=== PATIENT | female | born 1955 | race Caucasian/White ===

== ENCOUNTER → 2017-07-27 | Outpatient (CLI) | payer OTHER ==
[~2017-07-27] MED LIST: ALBUMIN HUMAN 25% 100 ML IV; LIDOCAINE WITH 8.4% SOD BICARB 3 ML DISP.SYRIN. IJ
[2017-07-27 08:52] LABS: ADD MAN DIFF? NO
[2017-07-27 08:57] LABS: BASO # 0.1 x10^3/uL (0.0-0.2); BASO % 1 % (0-3); EOS # 0.2 x10^3/uL (0.0-0.7); EOS % 3 % (0-3); HEMATOCRIT 37.8 % (36.0-47.0); HEMOGLOBIN 12.4 g/dL (12.0-15.5); LYMPH # 0.9 x10^3/uL (1.0-4.8); LYMPH % 15 % (24-48); MEAN CORPUSCULAR HEMOGLOBIN 28 pg (25-35); MEAN CORPUSCULAR HGB CONC 33 g/dL (31-37); MEAN CORPUSCULAR VOLUME 86 fL (79-100); MONO # 0.6 x10^3/uL (0.0-1.1); MONO % 10 % (0-9); NEUT # 4.4 x10^3uL (1.8-7.7); NEUT % 72 % (31-73); PLATELET COUNT 292 x10^3/uL (140-400); RED BLOOD COUNT 4.43 x10^6/uL (3.50-5.40); RED CELL DISTRIBUTION WIDTH 14.3 % (11.5-14.5); WHITE BLOOD COUNT 6.2 x10^3/uL (4.0-11.0)
[2017-07-27] MEDS: ALBUMIN HUMAN 25% 100 ML IV ×2 (10:42→10:43)
[2017-07-27] MEDS: LIDOCAINE WITH 8.4% SOD BICARB 3 ML DISP.SYRIN. IJ (10:43)
[2017-07-27 13:14] LABS: BF CLARITY CLEAR; BF COLOR YELLOW; BF SOURCE ASCITES
[2017-07-27 13:15] LABS: BF MON % 39 %; BF OTHER % 51 %; BF PMN % 10 %; BF RBC COUNT 1499 /cmm; BF WBC COUNT 326 /cmm
[2017-07-28 16:21] LABS: BODY FLUID ALBUMIN 2.6 g/dL (.)
== END | disposition home or self-care (01) ==
LOC: INTRAD 08:22
DX: R18.8 Other ascites (principal); I10 Essential (primary) hypertension; Z98.890 Other specified postprocedural states; Z88.0 Allergy status to penicillin
CPT/HCPCS: 36415; 49083; 82042; 85025; 85610; 87205; 89050; A4215; C1729; C1894; P9046

== ENCOUNTER 2017-08-25 10:04 | Outpatient (CLI) | payer BC, OTHER ==
[2017-08-25 10:44] LABS: ADD MAN DIFF? NO
[2017-08-25 10:47] LABS: BASO % 1 % (0-3); EOS # 0.1 x10^3/uL (0.0-0.7); EOS % 1 % (0-3); HEMATOCRIT 34.1 % (36.0-47.0); HEMOGLOBIN 11.5 g/dL (12.0-15.5); LYMPH # 0.8 x10^3/uL (1.0-4.8); LYMPH % 12 % (24-48); MEAN CORPUSCULAR HEMOGLOBIN 28 pg (25-35); MEAN CORPUSCULAR HGB CONC 34 g/dL (31-37); MEAN CORPUSCULAR VOLUME 84 fL (79-100); MONO # 0.5 x10^3/uL (0.0-1.1); MONO % 8 % (0-9); NEUT # 5.1 x10^3uL (1.8-7.7); NEUT % 78 % (31-73); PLATELET COUNT 354 x10^3/uL (140-400); RED BLOOD COUNT 4.05 x10^6/uL (3.50-5.40); RED CELL DISTRIBUTION WIDTH 14.2 % (11.5-14.5); WHITE BLOOD COUNT 6.6 x10^3/uL (4.0-11.0)
[2017-08-25 10:55] LABS: PARTIAL THROMBOPLASTIN TIME 26 SEC (24-38)
[2017-08-25] MEDS ORDERED: LIDOCAINE WITH 8.4% SOD BICARB 3 ML DISP.SYRIN. ×2 (11:38)
[2017-08-25] MEDS: LIDOCAINE WITH 8.4% SOD BICARB 3 ML DISP.SYRIN. IJ ×2 (12:00)
[2017-08-25] MEDS: ALBUMIN HUMAN 25% 100 ML IV ×4 (12:30→12:45)
[2017-08-25] MEDS ORDERED: ALBUMIN HUMAN 25% 100 ML IV ×2 (12:38)
== END 2017-08-25 14:12 | disposition home or self-care (01) ==
LOC: INTRAD 10:04
DX: R18.8 Other ascites (principal); I10 Essential (primary) hypertension; Z79.01 Long term (current) use of anticoagulants; Z98.890 Other specified postprocedural states; Z88.0 Allergy status to penicillin
CPT/HCPCS: 36415; 49083; 85025; 85610; 85730; P9046

== ENCOUNTER 2017-12-09 08:32 | Outpatient (CLI) | payer OTHER, BC ==
[2017-12-09 09:09] LABS: ADD MAN DIFF? NO
[2017-12-09 09:11] LABS: BASO % 0 % (0-3); EOS # 0.2 x10^3/uL (0.0-0.7); EOS % 3 % (0-3); HEMATOCRIT 33.6 % (36.0-47.0); HEMOGLOBIN 11.2 g/dL (12.0-15.5); LYMPH # 0.8 x10^3/uL (1.0-4.8); LYMPH % 15 % (24-48); MEAN CORPUSCULAR HEMOGLOBIN 30 pg (25-35); MEAN CORPUSCULAR HGB CONC 33 g/dL (31-37); MEAN CORPUSCULAR VOLUME 89 fL (79-100); MONO # 0.5 x10^3/uL (0.0-1.1); MONO % 9 % (0-9); NEUT # 4.1 x10^3uL (1.8-7.7); NEUT % 73 % (31-73); PLATELET COUNT 306 x10^3/uL (140-400); RED BLOOD COUNT 3.78 x10^6/uL (3.50-5.40); RED CELL DISTRIBUTION WIDTH 14.4 % (11.5-14.5); WHITE BLOOD COUNT 5.6 x10^3/uL (4.0-11.0)
[2017-12-09 09:19] LABS: INR 1.1 (0.8-1.1); PROTHROMBIN TIME PATIENT 13.7 SEC (11.7-14.0)
[2017-12-09] MEDS ORDERED: LIDOCAINE WITH 8.4% SOD BICARB 3 ML DISP.SYRIN. (10:55)
[2017-12-09] MEDS ORDERED: ALBUMIN HUMAN 25% 100 ML IV ×2 (12:20)
[2017-12-09] MEDS: LIDOCAINE WITH 8.4% SOD BICARB 3 ML DISP.SYRIN. INJ (12:40)
[2017-12-09] MEDS: ALBUMIN HUMAN 25% 100 ML IV ×2 (12:41→13:41)
== END 2017-12-09 14:50 | disposition home or self-care (01) ==
LOC: INTRAD 08:32
DX: R18.8 Other ascites (principal); Z88.0 Allergy status to penicillin; I10 Essential (primary) hypertension; Z98.890 Other specified postprocedural states
CPT/HCPCS: 36415; 49083; 85025; 85610; P9046

== ENCOUNTER 2018-01-05 08:38 | Outpatient (CLI) | payer OTHER ==
[2018-01-05] MEDS ORDERED: LIDOCAINE WITH 8.4% SOD BICARB 3 ML DISP.SYRIN. (09:13)
[2018-01-05] MEDS ORDERED: ALBUMIN HUMAN 25% 100 ML IV ×2 (09:28→10:01)
[2018-01-05] MEDS: ALBUMIN HUMAN 25% 100 ML IV ×2 (09:35→10:06)
[2018-01-05] MEDS: LIDOCAINE WITH 8.4% SOD BICARB 3 ML DISP.SYRIN. INJ (09:55)
== END 2018-01-05 11:10 | disposition home or self-care (01) ==
LOC: INTRAD 08:38
DX: R18.8 Other ascites (principal); I10 Essential (primary) hypertension; Z98.890 Other specified postprocedural states; Z79.899 Other long term (current) drug therapy
CPT/HCPCS: 49083; P9046

== ENCOUNTER 2018-02-03 08:40 | Outpatient (CLI) | payer OTHER ==
[2018-02-03 09:31] LABS: ADD MAN DIFF? NO
[2018-02-03 09:34] LABS: BASO % 1 % (0-3); EOS # 0.1 x10^3/uL (0.0-0.7); EOS % 2 % (0-3); HEMATOCRIT 35.3 % (36.0-47.0); HEMOGLOBIN 11.8 g/dL (12.0-15.5); LYMPH # 0.8 x10^3/uL (1.0-4.8); LYMPH % 15 % (24-48); MEAN CORPUSCULAR HEMOGLOBIN 29 pg (25-35); MEAN CORPUSCULAR HGB CONC 33 g/dL (31-37); MEAN CORPUSCULAR VOLUME 87 fL (79-100); MONO # 0.4 x10^3/uL (0.0-1.1); MONO % 7 % (0-9); NEUT # 3.8 x10^3uL (1.8-7.7); NEUT % 75 % (31-73); PLATELET COUNT 288 x10^3/uL (140-400); RED BLOOD COUNT 4.07 x10^6/uL (3.50-5.40); RED CELL DISTRIBUTION WIDTH 14.5 % (11.5-14.5); WHITE BLOOD COUNT 5.1 x10^3/uL (4.0-11.0)
[2018-02-03] MEDS ORDERED: LIDOCAINE WITH 8.4% SOD BICARB 3 ML DISP.SYRIN. (09:46)
[2018-02-03 09:49] LABS: PROTHROMBIN TIME PATIENT 12.5 SEC (11.7-14.0)
[2018-02-03] MEDS ORDERED: ALBUMIN HUMAN 25% 100 ML IV (10:45)
[2018-02-03] MEDS: ALBUMIN HUMAN 25% 100 ML IV ×2 (11:13)
[2018-02-03] MEDS: LIDOCAINE WITH 8.4% SOD BICARB 3 ML DISP.SYRIN. INJ (11:13)
== END 2018-02-03 12:30 | disposition home or self-care (01) ==
LOC: INTRAD 08:40
DX: R18.8 Other ascites (principal); I10 Essential (primary) hypertension; Z88.0 Allergy status to penicillin; Z98.890 Other specified postprocedural states
CPT/HCPCS: 36415; 49083; 85025; 85610; P9046

== ENCOUNTER 2018-02-23 07:03 | Outpatient (CLI) | payer OTHER ==
[~2018-02-23] VITALS: Ht 160 cm; Wt 69.4 kg
[~2018-02-23 07:03] MED LIST changes: -ALBUMIN HUMAN 25% 100 ML IV; -LIDOCAINE WITH 8.4% SOD BICARB 3 ML DISP.SYRIN. IJ; +LISI1TAB5 PO; +SPIR100T4 PO
[2018-02-23] MEDS ORDERED: MULT1TAB52 PO (07:30)
[2018-02-23 07:53] VITALS: BP 187/85
[2018-02-23] MEDS ORDERED: LIDOCAINE WITH 8.4% SOD BICARB 3 ML DISP.SYRIN. ONE (08:00)
[2018-02-23 08:30] VITALS: BP 171/75
[2018-02-23 08:45] VITALS: BP 150/68
[2018-02-23] MEDS ORDERED: LIDOCAINE WITH 8.4% SOD BICARB 3 ML DISP.SYRIN. INJ ONE (08:45)
[2018-02-23 09:00] VITALS: BP 148/70
[2018-02-23] MEDS ORDERED: ALBUMIN HUMAN 25% 100 ML IV ONE ×2 (09:14→11:00)
--- NOTE | 2018-02-23 10:03 | RAD ---
Ultrasound-guided paracentesis 02/23/2018 9:59 AM Procedure: The risks and benefits of the procedure were discussed the patient. Informed consent was obtained. A timeout procedure was performed. Sonographic evaluation of the abdomen was performed demonstrating ascites . The right lower quadrant was prepped and draped using maximum sterile barrier technique. 1% lidocaine without epinephrine was administered for local anesthesia. Real-time ultrasonographic guidance was used in passing a 5 Japanese Yueh catheter into the fluid collection. 6.1 L of serous ascites was removed. The catheter was removed and pressure held to achieve hemostasis. A sterile dressing was applied. Impression: Successful ultrasound-guided paracentesis
== END 2018-02-23 10:05 | disposition home or self-care (01) ==
LOC: INTRAD 07:03
PROVIDERS: ATTEND Internal Medicine Gastroenterology
DX: K70.31 Alcoholic cirrhosis of liver with ascites (principal); I10 Essential (primary) hypertension; Z88.0 Allergy status to penicillin; Z79.899 Other long term (current) drug therapy; Z98.890 Other specified postprocedural states
CPT/HCPCS: 49083; P9046

== ENCOUNTER 2018-03-18 07:09 | Outpatient (CLI) | payer OTHER ==
[2018-03-18] VITALS (7 sets, daily range): BP systolic 151–186; BP diastolic 74–97
[~2018-03-18] VITALS: Ht 160 cm; Wt 67.1 kg
[~2018-03-18 07:09] MED LIST changes: +MULT1TAB52 PO
[2018-03-18 07:52] LABS: BASO % 1 % (0-3); EOS # 0.2 x10^3/uL (0.0-0.7); EOS % 3 % (0-3); HEMATOCRIT 34.1 % (36.0-47.0); HEMOGLOBIN 11.6 g/dL (12.0-15.5); LYMPH # 0.9 x10^3/uL (1.0-4.8); LYMPH % 19 % (24-48); MEAN CORPUSCULAR HEMOGLOBIN 30 pg (25-35); MEAN CORPUSCULAR HGB CONC 34 g/dL (31-37); MEAN CORPUSCULAR VOLUME 87 fL (79-100); MONO # 0.4 x10^3/uL (0.0-1.1); MONO % 9 % (0-9); NEUT # 3.3 x10^3uL (1.8-7.7); NEUT % 68 % (31-73); PLATELET COUNT 283 x10^3/uL (140-400); RED BLOOD COUNT 3.92 x10^6/uL (3.50-5.40); RED CELL DISTRIBUTION WIDTH 15.3 % (11.5-14.5); WHITE BLOOD COUNT 4.8 x10^3/uL (4.0-11.0)
[2018-03-18 08:20] LABS: PROTHROMBIN TIME PATIENT 13.2 SEC (11.7-14.0)
[2018-03-18] MEDS ORDERED: ALBUMIN HUMAN 25% 100 ML IV ONE (09:10)
[2018-03-18] MEDS: ALBUMIN HUMAN 25% 100 ML IV ONE (09:27)
--- NOTE | 2018-03-18 12:08 | RAD ---
Ultrasound-guided paracentesis 03/18/2018 12:04 PM Procedure: The risks and benefits of the procedure were discussed the patient. Informed consent was obtained. A timeout procedure was performed. Sonographic evaluation of the abdomen was performed demonstrating ascites . The right lower quadrant was prepped and draped using maximum sterile barrier technique. 1% lidocaine without epinephrine was administered for local anesthesia. Real-time ultrasonographic guidance was used in passing a 5 Mexican Yueh catheter into the fluid collection. 6.5 L of serous ascites was removed. The catheter was removed and pressure held to achieve hemostasis. A sterile dressing was applied. Impression: Successful ultrasound-guided paracentesis
== END 2018-03-18 10:33 | disposition home or self-care (01) ==
LOC: INTRAD 07:09
PROVIDERS: ATTEND Internal Medicine Gastroenterology
DX: R18.8 Other ascites (principal); Z88.0 Allergy status to penicillin
CPT/HCPCS: 36415; 49083; 82040; 85025; 85610; 85730; P9046

== ENCOUNTER 2018-04-07 08:33 | Outpatient (CLI) | payer OTHER ==
[~2018-04-07] VITALS: Ht 160 cm; Wt 67.1 kg
[2018-04-07] VITALS (8 sets, daily range): BP systolic 122–181; BP diastolic 65–84
[2018-04-07] MEDS ORDERED: ALBUMIN HUMAN 25% 100 ML IV ONE ×2 (09:49→10:00)
--- NOTE | 2018-04-07 16:31 | RAD ---
Ultrasound-guided paracentesis 04/07/2018 4:26 PM Procedure: The risks and benefits of the procedure were discussed the patient. Informed consent was obtained. A timeout procedure was performed. Sonographic evaluation of the abdomen was performed demonstrating ascites . The right lower quadrant was prepped and draped using maximum sterile barrier technique. 1% lidocaine without epinephrine was administered for local anesthesia. Real-time ultrasonographic guidance was used in passing a 5 German Yueh catheter into the fluid collection. 6.7 L of serous ascites was removed. The catheter was removed and pressure held to achieve hemostasis. A sterile dressing was applied. Impression: Successful ultrasound-guided paracentesis
== END 2018-04-07 10:52 | disposition home or self-care (01) ==
LOC: INTRAD 08:33
PROVIDERS: ATTEND Internal Medicine Gastroenterology
DX: K70.31 Alcoholic cirrhosis of liver with ascites (principal); I10 Essential (primary) hypertension; Z79.899 Other long term (current) drug therapy; Z88.0 Allergy status to penicillin; Z98.890 Other specified postprocedural states
CPT/HCPCS: 49083; P9046

== ENCOUNTER 2018-04-23 10:02 | Outpatient (CLI) | payer OTHER ==
[2018-04-23] VITALS (8 sets, daily range): BP systolic 144–163; BP diastolic 67–84
[~2018-04-23] VITALS: Ht 162.6 cm; Wt 65.8 kg
[2018-04-23 10:35] LABS: BASO % 1 % (0-3); EOS # 0.1 x10^3/uL (0.0-0.7); EOS % 3 % (0-3); HEMATOCRIT 34.6 % (36.0-47.0); HEMOGLOBIN 11.8 g/dL (12.0-15.5); LYMPH # 0.8 x10^3/uL (1.0-4.8); LYMPH % 16 % (24-48); MEAN CORPUSCULAR HEMOGLOBIN 30 pg (25-35); MEAN CORPUSCULAR HGB CONC 34 g/dL (31-37); MEAN CORPUSCULAR VOLUME 88 fL (79-100); MONO # 0.3 x10^3/uL (0.0-1.1); MONO % 7 % (0-9); NEUT # 3.4 x10^3uL (1.8-7.7); NEUT % 73 % (31-73); PLATELET COUNT 274 x10^3/uL (140-400); RED BLOOD COUNT 3.95 x10^6/uL (3.50-5.40); RED CELL DISTRIBUTION WIDTH 15.2 % (11.5-14.5); WHITE BLOOD COUNT 4.7 x10^3/uL (4.0-11.0)
[2018-04-23 10:46] LABS: PROTHROMBIN TIME PATIENT 12.7 SEC (11.7-14.0)
[2018-04-23] MEDS ORDERED: ALBUMIN HUMAN 25% 100 ML IV ONE (12:15)
--- NOTE | 2018-04-23 13:13 | RAD ---
Procedure: Ultrasound guided paracentesis Clinical Indication: 62-year-old with abdominal ascites Sedation: Local anesthesia only Antibiotics: None Fluoro Time: None Contrast: Not applicable Sterility: The procedure was performed in its entirety using appropriate elements of sterile technique. Consent: The procedure was explained in its entirety to the patient or the patients designated transportation services representative by a member of the treatment team, including a discussion of the risks, benefits and commonly accepted alternatives to the procedure, as well as the expected consequences of no therapy whatsoever. Discussion of the risks included, but was not limited to, those that are most frequent and those that are rare but possibly severe or life-threatening, as well as the possibility of unforeseen complications. Technique and Findings: Following informed consent, the patient was prepped and draped in the usual sterile fashion. Ultrasound interrogation of the abdomen revealed abdominal ascites. A hard copy ultrasound image was recorded. 1% Lidocaine was used to achieve local anesthesia over the area of interest, and a 6 Turkish Maxb-J-Hqbhhkrc catheter was advanced into the peritoneal cavity under ultrasound guidance. 6000 cc of thin sreekanth ascites was then withdrawn. The catheter was removed and hemostasis was achieved with manual compression. Complications: No immediate Impression: 1. Ultrasound-guided paracentesis as described
== END 2018-04-23 13:12 | disposition home or self-care (01) ==
LOC: INTRAD 10:02
PROVIDERS: ATTEND Internal Medicine Gastroenterology
DX: K70.31 Alcoholic cirrhosis of liver with ascites (principal); I10 Essential (primary) hypertension; Z98.890 Other specified postprocedural states; Z79.899 Other long term (current) drug therapy; Z88.0 Allergy status to penicillin
CPT/HCPCS: 36415; 49083; 85025; 85610; 85730; P9046

== ENCOUNTER 2018-05-12 08:39 | Outpatient (CLI) | payer OTHER ==
[2018-05-12] VITALS (8 sets, daily range): BP systolic 132–192; BP diastolic 65–86
[~2018-05-12] VITALS: Ht 162.6 cm; Wt 64.9 kg
[2018-05-12] MEDS ORDERED: ALBUMIN HUMAN 25% 100 ML IV ONE ×2 (10:05→10:15)
[2018-05-12] MEDS ORDERED: ALBUMIN HUMAN 25% 50 ML IV ONE (10:15)
--- NOTE | 2018-05-12 10:24 | RAD ---
Ultrasound-guided paracentesis 05/12/2018 10:15 AM Procedure: The risks and benefits of the procedure were discussed the patient. Informed consent was obtained. A timeout procedure was performed. Sonographic evaluation of the abdomen was performed demonstrating ascites . The right lower quadrant was prepped and draped using maximum sterile barrier technique. 1% lidocaine without epinephrine was administered for local anesthesia. Real-time ultrasonographic guidance was used in passing a 5 Dutch Yueh catheter into the fluid collection. 6 L of serous ascites was removed. The catheter was removed and pressure held to achieve hemostasis. A sterile dressing was applied. Impression: Successful ultrasound-guided paracentesis
== END 2018-05-12 10:57 | disposition home or self-care (01) ==
LOC: INTRAD 08:39
PROVIDERS: ATTEND Internal Medicine Gastroenterology
DX: R18.8 Other ascites (principal)
CPT/HCPCS: 49083

== ENCOUNTER → 2018-05-26 | Outpatient (CLI) | payer OTHER ==
[2018-05-26] VITALS (8 sets, daily range): BP systolic 128–172; BP diastolic 63–89
[~2018-05-26] VITALS: Ht 7.6 cm; Wt 65.8 kg
[~2018-05-26] MED LIST changes: +ALBUMIN HUMAN 25% 100 ML IV ONE; +ALBUMIN HUMAN 25% 50 ML IV ONE
[2018-05-26 07:29] LABS: BASO % 1 % (0-3); EOS # 0.1 x10^3/uL (0.0-0.7); EOS % 3 % (0-3); HEMATOCRIT 35.5 % (36.0-47.0); LYMPH # 0.8 x10^3/uL (1.0-4.8); LYMPH % 18 % (24-48); MEAN CORPUSCULAR HEMOGLOBIN 29 pg (25-35); MEAN CORPUSCULAR HGB CONC 34 g/dL (31-37); MEAN CORPUSCULAR VOLUME 87 fL (79-100); MONO # 0.4 x10^3/uL (0.0-1.1); MONO % 9 % (0-9); NEUT # 3.2 x10^3uL (1.8-7.7); NEUT % 69 % (31-73); PLATELET COUNT 293 x10^3/uL (140-400); RED BLOOD COUNT 4.07 x10^6/uL (3.50-5.40); RED CELL DISTRIBUTION WIDTH 15.2 % (11.5-14.5); WHITE BLOOD COUNT 4.6 x10^3/uL (4.0-11.0)
[2018-05-26 07:42] LABS: PROTHROMBIN TIME PATIENT 12.6 SEC (11.7-14.0)
--- NOTE | 2018-05-26 10:30 | RAD ---
Ultrasound-guided paracentesis 05/26/2018 10:26 AM Procedure: The risks and benefits of the procedure were discussed the patient. Informed consent was obtained. A timeout procedure was performed. Sonographic evaluation of the abdomen was performed demonstrating ascites . The right lower quadrant was prepped and draped using maximum sterile barrier technique. 1% lidocaine without epinephrine was administered for local anesthesia. Real-time ultrasonographic guidance was used in passing a 5 [place] Citizen Yueh catheter into the fluid collection. 6.2 L of serous ascites was removed. The catheter was removed and pressure held to achieve hemostasis. A sterile dressing was applied. Impression: Successful ultrasound-guided paracentesis
== END | disposition home or self-care (01) ==
LOC: INTRAD 06:59
PROVIDERS: ATTEND Internal Medicine Gastroenterology
DX: K74.60 Unspecified cirrhosis of liver (principal); Z88.0 Allergy status to penicillin
CPT/HCPCS: 36415; 49083; 85025; 85610; P9046

== ENCOUNTER 2018-06-10 08:52 | Outpatient (CLI) | payer OTHER ==
[2018-06-10] VITALS (10 sets, daily range): BP systolic 129–165; BP diastolic 62–85
[~2018-06-10] VITALS: Ht 162.6 cm; Wt 66.7 kg
[~2018-06-10 08:52] MED LIST changes: -ALBUMIN HUMAN 25% 100 ML IV ONE; -ALBUMIN HUMAN 25% 50 ML IV ONE
[2018-06-10] MEDS ORDERED: ALBUMIN HUMAN 25% 100 ML IV ONE ×4 (11:21→12:00)
--- NOTE | 2018-06-10 15:22 | RAD ---
Ultrasound-guided paracentesis 06/10/2018 3:17 PM Procedure: The risks and benefits of the procedure were discussed the patient. Informed consent was obtained. A timeout procedure was performed. Sonographic evaluation of the abdomen was performed demonstrating ascites . The right lower quadrant was prepped and draped using maximum sterile barrier technique. 1% lidocaine without epinephrine was administered for local anesthesia. Real-time ultrasonographic guidance was used in passing a 5 Upper Sorbian Yueh catheter into the fluid collection. 7.2 L of serous ascites was removed. The catheter was removed and pressure held to achieve hemostasis. A sterile dressing was applied. Impression: Successful ultrasound-guided paracentesis
== END 2018-06-10 12:17 | disposition home or self-care (01) ==
LOC: INTRAD 08:52
PROVIDERS: ATTEND Internal Medicine Gastroenterology
DX: K74.60 Unspecified cirrhosis of liver (principal); Z88.0 Allergy status to penicillin
CPT/HCPCS: 49083; P9046

== ENCOUNTER 2018-06-23 10:02 | Outpatient (CLI) | payer OTHER ==
[~2018-06-23] VITALS: Ht 162.6 cm; Wt 64.0 kg
[2018-06-23] VITALS (9 sets, daily range): BP systolic 137–165; BP diastolic 64–85
[2018-06-23] MEDS ORDERED: ALBUMIN HUMAN 25% 100 ML IV ONE ×4 (11:20→12:00)
--- NOTE | 2018-06-23 15:30 | RAD ---
Procedure: Ultrasound guided paracentesis Clinical Indication: 63-year-old with recurrent abdominal ascites Sedation: Local anesthesia only Antibiotics: None Fluoro Time: None Contrast: Not applicable Sterility: The procedure was performed in its entirety using appropriate elements of sterile technique. Consent: The procedure was explained in its entirety to the patient or the patients designated livestock sales representative by a member of the treatment team, including a discussion of the risks, benefits and commonly accepted alternatives to the procedure, as well as the expected consequences of no therapy whatsoever. Discussion of the risks included, but was not limited to, those that are most frequent and those that are rare but possibly severe or life-threatening, as well as the possibility of unforeseen complications. Technique and Findings: Following informed consent, the patient was prepped and draped in the usual sterile fashion. Ultrasound interrogation of the abdomen revealed abdominal ascites. A hard copy ultrasound image was recorded. 1% Lidocaine was used to achieve local anesthesia over the area of interest, and a 6 Sierra Leonean Xdsu-O-Dqeopcvd catheter was advanced into the peritoneal cavity under ultrasound guidance. 7100 cc of thin yellow ascites was then withdrawn. The catheter was removed and hemostasis was achieved with manual compression. Complications: No immediate Impression: 1. Ultrasound-guided paracentesis as described
== END 2018-06-23 12:45 | disposition home or self-care (01) ==
LOC: INTRAD 10:02
PROVIDERS: ATTEND Internal Medicine Gastroenterology
DX: K74.60 Unspecified cirrhosis of liver (principal); R18.8 Other ascites; Z88.0 Allergy status to penicillin
CPT/HCPCS: 49083; P9046

== ENCOUNTER 2018-07-05 10:10 | Outpatient (CLI) | payer OTHER ==
[2018-07-05] VITALS (7 sets, daily range): BP systolic 121–154; BP diastolic 58–83
[~2018-07-05] VITALS: Ht 160 cm; Wt 64.4 kg
[2018-07-05 10:52] LABS: BASO # 0.1 x10^3/uL (0.0-0.2); BASO % 1 % (0-3); EOS # 0.1 x10^3/uL (0.0-0.7); EOS % 3 % (0-3); HEMATOCRIT 35.1 % (36.0-47.0); HEMOGLOBIN 11.9 g/dL (12.0-15.5); LYMPH # 0.9 x10^3/uL (1.0-4.8); LYMPH % 17 % (24-48); MEAN CORPUSCULAR HEMOGLOBIN 29 pg (25-35); MEAN CORPUSCULAR HGB CONC 34 g/dL (31-37); MEAN CORPUSCULAR VOLUME 86 fL (79-100); MONO # 0.3 x10^3/uL (0.0-1.1); MONO % 6 % (0-9); NEUT # 3.7 x10^3uL (1.8-7.7); NEUT % 73 % (31-73); PLATELET COUNT 317 x10^3/uL (140-400); RED BLOOD COUNT 4.06 x10^6/uL (3.50-5.40); WHITE BLOOD COUNT 5.1 x10^3/uL (4.0-11.0)
[2018-07-05 11:10] LABS: PROTHROMBIN TIME PATIENT 13.1 SEC (11.7-14.0)
[2018-07-05] MEDS ORDERED: ALBUMIN HUMAN 25% 200 ML IV ONE (11:50)
[2018-07-05] MEDS ORDERED: ALBUMIN HUMAN 25% 100 ML IV ONE (12:00)
--- NOTE | 2018-07-05 12:54 | NUR ---
pt A&O x3. tolerating po well. VSS. ambulated to BR w/o problem. d/c instructions reviewed. out to vehicle per w/c- family to drive her home
--- NOTE | 2018-07-05 18:11 | RAD ---
Ultrasound-guided paracentesis 07/05/2018 6:06 PM Procedure: The risks and benefits of the procedure were discussed the patient. Informed consent was obtained. A timeout procedure was performed. Sonographic evaluation of the abdomen was performed demonstrating ascites . The right lower quadrant was prepped and draped using maximum sterile barrier technique. 1% lidocaine without epinephrine was administered for local anesthesia. Real-time ultrasonographic guidance was used in passing a 5 Yoruba Yueh catheter into the fluid collection. 5.6 L of serous ascites was removed. The catheter was removed and pressure held to achieve hemostasis. A sterile dressing was applied. Impression: Successful ultrasound-guided paracentesis
== END 2018-07-05 12:50 | disposition home or self-care (01) ==
LOC: INTRAD 10:10
PROVIDERS: ATTEND Internal Medicine Gastroenterology
DX: K74.60 Unspecified cirrhosis of liver (principal); Z88.0 Allergy status to penicillin
CPT/HCPCS: 36415; 49083; 85025; 85610; P9046

== ENCOUNTER 2018-07-22 07:00 | Outpatient (CLI) | payer OTHER ==
[~2018-07-22] VITALS: Ht 160 cm; Wt 65.3 kg
[2018-07-22] VITALS (8 sets, daily range): BP systolic 112–152; BP diastolic 57–78
[2018-07-22] MEDS ORDERED: ALBUMIN HUMAN 25% 100 ML IV ONE ×2 (08:44→08:54)
[2018-07-22] MEDS: ALBUMIN HUMAN 25% 100 ML IV ONE (09:00)
[2018-07-22] MEDS: ALBUMIN HUMAN 25% 50 ML IV ONE (09:21)
--- NOTE | 2018-07-23 12:58 | RAD ---
Ultrasound-guided paracentesis 07/23/2018 12:53 PM Procedure: The risks and benefits of the procedure were discussed the patient. Informed consent was obtained. A timeout procedure was performed. Sonographic evaluation of the abdomen was performed demonstrating ascites . The right lower quadrant was prepped and draped using maximum sterile barrier technique. 1% lidocaine without epinephrine was administered for local anesthesia. Real-time ultrasonographic guidance was used in passing a 5 Eritrean Yueh catheter into the fluid collection. 5.9 L of serous ascites was removed. The catheter was removed and pressure held to achieve hemostasis. A sterile dressing was applied. Impression: Successful ultrasound-guided paracentesis
== END 2018-07-22 10:00 | disposition home or self-care (01) ==
LOC: INTRAD 07:00
PROVIDERS: ATTEND Internal Medicine Gastroenterology
DX: R18.8 Other ascites (principal); Z88.0 Allergy status to penicillin
CPT/HCPCS: 49083; P9046

== ENCOUNTER 2018-08-06 08:42 | Outpatient (CLI) | payer OTHER ==
[2018-08-06] VITALS (13 sets, daily range): BP systolic 121–165; BP diastolic 61–94
[~2018-08-06] VITALS: Ht 160 cm; Wt 65.3 kg
[2018-08-06 09:16] LABS: BASO # 0.1 x10^3/uL (0.0-0.2); BASO % 1 % (0-3); EOS # 0.2 x10^3/uL (0.0-0.7); EOS % 3 % (0-3); HEMATOCRIT 35.7 % (36.0-47.0); HEMOGLOBIN 11.7 g/dL (12.0-15.5); LYMPH # 0.8 x10^3/uL (1.0-4.8); LYMPH % 14 % (24-48); MEAN CORPUSCULAR HEMOGLOBIN 29 pg (25-35); MEAN CORPUSCULAR HGB CONC 33 g/dL (31-37); MEAN CORPUSCULAR VOLUME 87 fL (79-100); MONO # 0.5 x10^3/uL (0.0-1.1); MONO % 8 % (0-9); NEUT # 4.7 x10^3uL (1.8-7.7); NEUT % 75 % (31-73); PLATELET COUNT 304 x10^3/uL (140-400); RED BLOOD COUNT 4.12 x10^6/uL (3.50-5.40); RED CELL DISTRIBUTION WIDTH 16.1 % (11.5-14.5); WHITE BLOOD COUNT 6.2 x10^3/uL (4.0-11.0)
[2018-08-06 09:25] LABS: PROTHROMBIN TIME PATIENT 12.9 SEC (11.7-14.0)
[2018-08-06] MEDS ORDERED: ALBUMIN HUMAN 25% 100 ML IV ONE ×2 (11:00→11:15)
--- NOTE | 2018-08-06 11:48 | RAD ---
Procedure: Ultrasound guided paracentesis Clinical Indication: 63-year-old with abdominal ascites Sedation: Local anesthesia only Antibiotics: None Fluoro Time: None Contrast: Not applicable Sterility: The procedure was performed in its entirety using appropriate elements of sterile technique. Consent: The procedure was explained in its entirety to the patient or the patients designated containers sales representative by a member of the treatment team, including a discussion of the risks, benefits and commonly accepted alternatives to the procedure, as well as the expected consequences of no therapy whatsoever. Discussion of the risks included, but was not limited to, those that are most frequent and those that are rare but possibly severe or life-threatening, as well as the possibility of unforeseen complications. Technique and Findings: Following informed consent, the patient was prepped and draped in the usual sterile fashion. Ultrasound interrogation of the abdomen revealed abdominal ascites. A hard copy ultrasound image was recorded. 1% Lidocaine was used to achieve local anesthesia over the area of interest, and a 6 Congolese Dckn-Y-Uhmxnpnt catheter was advanced into the peritoneal cavity under ultrasound guidance. 5700 cc of thin yellow ascites was then withdrawn. The catheter was removed and hemostasis was achieved with manual compression. Complications: No immediate Impression: 1. Ultrasound-guided paracentesis as described
--- NOTE | 2018-08-06 11:54 | NUR ---
pt discharged home with family. Discharge instructions reviewed
== END 2018-08-06 11:56 | disposition home or self-care (01) ==
LOC: INTRAD 08:42
PROVIDERS: ATTEND Internal Medicine Gastroenterology
DX: R18.8 Other ascites (principal); Z88.0 Allergy status to penicillin
CPT/HCPCS: 36415; 49083; 85025; 85610; P9046

== ENCOUNTER 2018-08-23 08:27 | Outpatient (CLI) | payer OTHER ==
[2018-08-23] VITALS (8 sets, daily range): BP systolic 119–159; BP diastolic 70–89
[~2018-08-23] VITALS: Ht 160 cm; Wt 65.8 kg
[2018-08-23] MEDS ORDERED: ALBUMIN HUMAN 25% 100 ML IV ONE ×3 (10:26→11:00)
--- NOTE | 2018-08-23 10:52 | RAD ---
Procedure: Ultrasound guided paracentesis Clinical Indication: 63-year-old with recurrent abdominal ascites Sedation: Local anesthesia only Antibiotics: None Fluoro Time: None Contrast: Not applicable Sterility: The procedure was performed in its entirety using appropriate elements of sterile technique. Consent: The procedure was explained in its entirety to the patient or the patients designated benefits representative by a member of the treatment team, including a discussion of the risks, benefits and commonly accepted alternatives to the procedure, as well as the expected consequences of no therapy whatsoever. Discussion of the risks included, but was not limited to, those that are most frequent and those that are rare but possibly severe or life-threatening, as well as the possibility of unforeseen complications. Technique and Findings: Following informed consent, the patient was prepped and draped in the usual sterile fashion. Ultrasound interrogation of the abdomen revealed abdominal ascites. A hard copy ultrasound image was recorded. 1% Lidocaine was used to achieve local anesthesia over the area of interest, and a 6 Israeli Dcpz-K-Dxeycnmb catheter was advanced into the peritoneal cavity under ultrasound guidance. 5900 cc of thin yellow ascites was then withdrawn. The catheter was removed and hemostasis was achieved with manual compression. Complications: No immediate Impression: 1. Ultrasound-guided paracentesis as described
--- NOTE | 2018-08-23 11:39 | NUR ---
Discharge Note: FLACO CAVANAUGH Discharge instructions and discharge home medications reviewed as well as follow up and s/s requiring further treatment with Patient and a copy given. All questions have been answered and understanding verbalized. The following instructions and handouts were given: post paracentesis Discontinued lines and drains: right hand IV Patient discharged to home with via private vehicle. Pt denies pain.
== END 2018-08-23 11:30 | disposition home or self-care (01) ==
LOC: INTRAD 08:27
PROVIDERS: ATTEND Internal Medicine Gastroenterology
DX: R18.8 Other ascites (principal)
CPT/HCPCS: 49083; P9046

== ENCOUNTER 2018-09-07 08:42 | Outpatient (CLI) | payer OTHER ==
[~2018-09-07] VITALS: Ht 160 cm; Wt 67.6 kg
[2018-09-07 09:12] LABS: BASO # 0.1 x10^3/uL (0.0-0.2); BASO % 1 % (0-3); EOS # 0.1 x10^3/uL (0.0-0.7); EOS % 3 % (0-3); HEMATOCRIT 35.8 % (36.0-47.0); HEMOGLOBIN 11.7 g/dL (12.0-15.5); LYMPH # 0.7 x10^3/uL (1.0-4.8); LYMPH % 12 % (24-48); MEAN CORPUSCULAR HEMOGLOBIN 29 pg (25-35); MEAN CORPUSCULAR HGB CONC 33 g/dL (31-37); MEAN CORPUSCULAR VOLUME 88 fL (79-100); MONO # 0.4 x10^3/uL (0.0-1.1); MONO % 7 % (0-9); NEUT # 4.1 x10^3uL (1.8-7.7); NEUT % 77 % (31-73); PLATELET COUNT 313 x10^3/uL (140-400); RED BLOOD COUNT 4.09 x10^6/uL (3.50-5.40); WHITE BLOOD COUNT 5.3 x10^3/uL (4.0-11.0)
[2018-09-07 09:22] LABS: PROTHROMBIN TIME PATIENT 13.2 SEC (11.7-14.0)
[2018-09-07 09:32] LABS: CALCIUM 8.8 mg/dL (8.5-10.1); CREATININE 1.5 mg/dL (0.6-1.0); POTASSIUM 4.1 mmol/L (3.5-5.1)
[2018-09-07 09:37] LABS: ALBUMIN 2.7 g/dL (3.4-5.0); ALBUMIN/GLOBULIN RATIO 0.7 (1.0-1.7); TOTAL BILIRUBIN 0.3 mg/dL (0.2-1.0); TOTAL PROTEIN 6.7 g/dL (6.4-8.2)
[2018-09-07 09:47] VITALS: BP 135/65
[2018-09-07 10:00] VITALS: BP 155/99
[2018-09-07 10:15] VITALS: BP 137/76
[2018-09-07 10:30] VITALS: BP 130/70
[2018-09-07] MEDS ORDERED: ALBUMIN HUMAN 25% 100 ML IV ONE ×2 (10:45)
[2018-09-07 11:00] VITALS: BP 120/59
--- NOTE | 2018-09-07 11:55 | NUR ---
pt discharged to home with family. VSS
--- NOTE | 2018-09-08 13:26 | RAD ---
Ultrasound-guided paracentesis 09/08/2018 1:22 PM Procedure: The risks and benefits of the procedure were discussed the patient. Informed consent was obtained. A timeout procedure was performed. Sonographic evaluation of the abdomen was performed demonstrating ascites . The right lower quadrant was prepped and draped using maximum sterile barrier technique. 1% lidocaine without epinephrine was administered for local anesthesia. Real-time ultrasonographic guidance was used in passing a 5 Frisian Yueh catheter into the fluid collection. 7 L of serous ascites was removed. The catheter was removed and pressure held to achieve hemostasis. A sterile dressing was applied. Impression: Successful ultrasound-guided paracentesis
== END 2018-09-07 11:56 | disposition home or self-care (01) ==
LOC: INTRAD 08:42
PROVIDERS: ATTEND Internal Medicine Gastroenterology
DX: K74.60 Unspecified cirrhosis of liver (principal); Z88.0 Allergy status to penicillin
CPT/HCPCS: 36415; 49083; 80053; 85025; 85610; P9046

== ENCOUNTER 2018-09-22 08:37 | Outpatient (CLI) | payer OTHER ==
[~2018-09-22] VITALS: Ht 161.3 cm; Wt 65.4 kg
[2018-09-22 09:30] VITALS: BP 176/93
[2018-09-22 09:45] VITALS: BP 142/69
[2018-09-22] MEDS ORDERED: ALBUMIN HUMAN 25% 100 ML IV ONE ×4 (10:11→10:30)
[2018-09-22 10:15] VITALS: BP 140/71
--- NOTE | 2018-09-22 10:25 | NUR ---
Pt to IR for paracentesis, tolerated well, VSS, Dressing to R mid abdomen, clean and dry. BERNADETTE RN
--- NOTE | 2018-09-22 11:00 | NUR ---
Discharge Pt alert and oriented x 3, able to tolerate PO, ambulatory with steady slow gait. Dressing dry and intact. DC instructions provided and reviewed. Pt escorted out per wheelchair, to drive. BERNADETTE ALEMAN
--- NOTE | 2018-09-23 08:06 | RAD ---
Ultrasound-guided paracentesis 09/22/2018 Procedure: The risks and benefits of the procedure were discussed the patient. Informed consent was obtained. A timeout procedure was performed. Sonographic evaluation of the abdomen was performed demonstrating ascites . The right lower quadrant was prepped and draped using maximum sterile barrier technique. 1% lidocaine without epinephrine was administered for local anesthesia. Real-time ultrasonographic guidance was used in passing a 5 Kenyan Yueh catheter into the fluid collection. 6.2 L of serous ascites was removed. The catheter was removed and pressure held to achieve hemostasis. A sterile dressing was applied. Impression: Successful ultrasound-guided paracentesis
== END 2018-09-22 11:00 | disposition home or self-care (01) ==
LOC: INTRAD 08:37
PROVIDERS: ATTEND Internal Medicine Gastroenterology
DX: R18.8 Other ascites (principal); Z88.0 Allergy status to penicillin
CPT/HCPCS: 49083; P9046

== ENCOUNTER 2018-10-07 07:00 | Outpatient (CLI) | payer OTHER ==
[~2018-10-07] VITALS: Ht 161.3 cm; Wt 67.1 kg
[2018-10-07 07:45] VITALS: BP 136/76
[2018-10-07 08:30] VITALS: BP 156/81
[2018-10-07 08:45] VITALS: BP 132/71
[2018-10-07 09:00] VITALS: BP 129/65
[2018-10-07] MEDS ORDERED: ALBUMIN HUMAN 25% 100 ML IV ONE ×2 (09:08→09:45)
[2018-10-07 09:15] VITALS: BP 124/64
[2018-10-07 09:28] VITALS: BP 140/69
--- NOTE | 2018-10-07 10:13 | NUR ---
Discharge Note: FLACO CAVANAUGH Discharge instructions and discharge home medications reviewed with Patient and a copy given. All questions have been answered and understanding verbalized. The following instructions and handouts were given: education was given to patient and spouse regarding paracentesis. Pt was also instructed to continue home medications as directed. Pt verbalized understanding. Discontinued lines and drains: peripheral iv was discontinued with no complications. Catheter tip was intact. Patient discharged to home with spouse via wheelchair. Pt was accompanied by spouse.
--- NOTE | 2018-10-19 14:24 | RAD ---
Ultrasound-guided paracentesis 10/07/2018 2:20 PM Procedure: The risks and benefits of the procedure were discussed the patient. Informed consent was obtained. A timeout procedure was performed. Sonographic evaluation of the abdomen was performed demonstrating ascites . The right lower quadrant was prepped and draped using maximum sterile barrier technique. 1% lidocaine without epinephrine was administered for local anesthesia. Real-time ultrasonographic guidance was used in passing a 5 Kinyarwanda Yueh catheter into the fluid collection. 6.5 L of serous ascites was removed. The catheter was removed and pressure held to achieve hemostasis. A sterile dressing was applied. Impression: Successful ultrasound-guided paracentesis
== END 2018-10-07 10:19 | disposition home or self-care (01) ==
LOC: INTRAD 07:00
PROVIDERS: ATTEND Internal Medicine Gastroenterology
DX: R18.8 Other ascites (principal); K76.9 Liver disease, unspecified; Z88.0 Allergy status to penicillin
CPT/HCPCS: 49083; C1729; P9046

== ENCOUNTER 2018-10-20 08:36 | Outpatient (CLI) | payer OTHER ==
[~2018-10-20] VITALS: Ht 161.3 cm; Wt 66.2 kg
[2018-10-20 09:00] LABS: BASO # 0.1 x10^3/uL (0.0-0.2); BASO % 1 % (0-3); EOS # 0.1 x10^3/uL (0.0-0.7); EOS % 3 % (0-3); HEMATOCRIT 36.6 % (36.0-47.0); HEMOGLOBIN 11.7 g/dL (12.0-15.5); LYMPH # 0.8 x10^3/uL (1.0-4.8); LYMPH % 16 % (24-48); MEAN CORPUSCULAR HEMOGLOBIN 28 pg (25-35); MEAN CORPUSCULAR HGB CONC 32 g/dL (31-37); MEAN CORPUSCULAR VOLUME 88 fL (79-100); MONO # 0.5 x10^3/uL (0.0-1.1); MONO % 9 % (0-9); NEUT # 3.6 x10^3uL (1.8-7.7); NEUT % 71 % (31-73); PLATELET COUNT 337 x10^3/uL (140-400); RED BLOOD COUNT 4.18 x10^6/uL (3.50-5.40); RED CELL DISTRIBUTION WIDTH 15.4 % (11.5-14.5)
[2018-10-20 09:04] VITALS: BP 126/76
[2018-10-20 09:33] LABS: PROTHROMBIN TIME PATIENT 13.5 SEC (11.7-14.0)
[2018-10-20] MEDS ORDERED: ALBUMIN HUMAN 25% 100 ML IV ONE ×2 (10:19→10:30)
[2018-10-20 10:30] VITALS: BP 122/66
[2018-10-20 10:58] VITALS: BP 114/58
[2018-10-20 11:06] VITALS: BP 127/61
--- NOTE | 2018-10-20 11:31 | NUR ---
Albumin infusion complete. Pt VSS. Pt denies any pain or sob. IV discontinued without any complications, tip intact; gauze and tape applied. Discharge instructions given to patient and .
--- NOTE | 2018-10-21 07:30 | RAD ---
Ultrasound-guided paracentesis 10/21/2018 7:26 AM Procedure: The risks and benefits of the procedure were discussed the patient. Informed consent was obtained. A timeout procedure was performed. Sonographic evaluation of the abdomen was performed demonstrating ascites . The right lower quadrant was prepped and draped using maximum sterile barrier technique. 1% lidocaine without epinephrine was administered for local anesthesia. Real-time ultrasonographic guidance was used in passing a 5 Bulgarian Yueh catheter into the fluid collection. 5 L of serous ascites was removed. The catheter was removed and pressure held to achieve hemostasis. A sterile dressing was applied. Impression: Successful ultrasound-guided paracentesis
== END 2018-10-20 11:25 | disposition home or self-care (01) ==
LOC: INTRAD 08:36
PROVIDERS: ATTEND Internal Medicine Gastroenterology
DX: R18.8 Other ascites (principal); Z88.0 Allergy status to penicillin; Z79.899 Other long term (current) drug therapy; Z79.01 Long term (current) use of anticoagulants
CPT/HCPCS: 36415; 49083; 85025; 85610; 85730; P9046

== ENCOUNTER 2018-11-04 08:32 | Outpatient (CLI) | payer OTHER ==
[~2018-11-04] VITALS: Ht 160 cm; Wt 66.7 kg
[2018-11-04 08:56] VITALS: BP 145/70
[2018-11-04 09:25] VITALS: BP 153/74
[2018-11-04 09:35] VITALS: BP 147/74
[2018-11-04] MEDS ORDERED: ALBUMIN HUMAN 25% 100 ML IV ONE ×4 (09:48→10:00)
[2018-11-04 09:50] VITALS: BP 129/66
[2018-11-04 10:00] VITALS: BP 125/68
--- NOTE | 2018-11-04 10:04 | RAD ---
Ultrasound-guided paracentesis 11/04/2018 10:00 AM Procedure: The risks and benefits of the procedure were discussed the patient. Informed consent was obtained. A timeout procedure was performed. Sonographic evaluation of the abdomen was performed demonstrating ascites . The right lower quadrant was prepped and draped using maximum sterile barrier technique. 1% lidocaine without epinephrine was administered for local anesthesia. Real-time ultrasonographic guidance was used in passing a 5 Serbian Yueh catheter into the fluid collection. 6.6 L of serous ascites was removed. The catheter was removed and pressure held to achieve hemostasis. A sterile dressing was applied. Impression: Successful ultrasound-guided paracentesis
[2018-11-04 10:30] VITALS: BP 114/56
--- NOTE | 2018-11-04 10:50 | NUR ---
pt A&Ox3. denies pain nausea. VSS. tolerating po well. ambulated to BR w/o problem. d/c instruction s reviewed. dressing on rt abd dry and intact. out to vehicle per w/c.
== END 2018-11-04 10:45 | disposition home or self-care (01) ==
LOC: INTRAD 08:32
PROVIDERS: ATTEND Internal Medicine Gastroenterology
DX: R18.8 Other ascites (principal); Z88.0 Allergy status to penicillin
CPT/HCPCS: 49083; P9046

== ENCOUNTER 2018-11-17 07:00 | Outpatient (CLI) | payer OTHER ==
[~2018-11-17] VITALS: Ht 160 cm; Wt 66.2 kg
[2018-11-17 07:56] VITALS: BP 116/64
[2018-11-17 08:15] VITALS: BP 135/63
[2018-11-17] MEDS ORDERED: ALBUMIN HUMAN 25% 100 ML IV ONE ×2 (08:28→08:30)
[2018-11-17 08:30] VITALS: BP 119/62
[2018-11-17 08:45] VITALS: BP 111/57
[2018-11-17 08:56] VITALS: BP 116/59
[2018-11-17 09:09] VITALS: BP 109/53
--- NOTE | 2018-11-17 09:30 | NUR ---
pt discharged to home with family. Discharged instructions reviewed with pt
--- NOTE | 2018-11-17 14:57 | RAD ---
Ultrasound-guided paracentesis 11/17/2018 2:54 PM Procedure: The risks and benefits of the procedure were discussed the patient. Informed consent was obtained. A timeout procedure was performed. Sonographic evaluation of the abdomen was performed demonstrating ascites . The right lower quadrant was prepped and draped using maximum sterile barrier technique. 1% lidocaine without epinephrine was administered for local anesthesia. Real-time ultrasonographic guidance was used in passing a 5 Lao Yueh catheter into the fluid collection. 6.2 L of serous ascites was removed. The catheter was removed and pressure held to achieve hemostasis. A sterile dressing was applied. Impression: Successful ultrasound-guided paracentesis
== END 2018-11-17 09:30 | disposition home or self-care (01) ==
LOC: INTRAD 07:00
PROVIDERS: ATTEND Internal Medicine Gastroenterology
DX: R18.8 Other ascites (principal); Z88.0 Allergy status to penicillin
CPT/HCPCS: 49083; P9046

== ENCOUNTER 2018-12-02 07:26 | Outpatient (CLI) | payer OTHER ==
[~2018-12-02] VITALS: Ht 160 cm; Wt 67.6 kg
[2018-12-02] VITALS (11 sets, daily range): BP systolic 119–167; BP diastolic 50–75
[2018-12-02 08:04] LABS: BASO % 1 % (0-3); EOS # 0.1 x10^3/uL (0.0-0.7); EOS % 3 % (0-3); HEMATOCRIT 35.1 % (36.0-47.0); HEMOGLOBIN 11.8 g/dL (12.0-15.5); LYMPH # 0.7 x10^3/uL (1.0-4.8); LYMPH % 13 % (24-48); MEAN CORPUSCULAR HEMOGLOBIN 29 pg (25-35); MEAN CORPUSCULAR HGB CONC 34 g/dL (31-37); MEAN CORPUSCULAR VOLUME 86 fL (79-100); MONO # 0.4 x10^3/uL (0.0-1.1); MONO % 8 % (0-9); NEUT # 3.9 x10^3uL (1.8-7.7); NEUT % 75 % (31-73); PLATELET COUNT 343 x10^3/uL (140-400); RED BLOOD COUNT 4.07 x10^6/uL (3.50-5.40); RED CELL DISTRIBUTION WIDTH 15.8 % (11.5-14.5); WHITE BLOOD COUNT 5.3 x10^3/uL (4.0-11.0)
[2018-12-02 08:15] LABS: PROTHROMBIN TIME PATIENT 14.6 SEC (11.7-14.0)
[2018-12-02] MEDS ORDERED: ALBUMIN HUMAN 25% 100 ML IV ONE ×2 (09:09→09:15)
--- NOTE | 2018-12-02 11:12 | NUR ---
Discharge Note: FLACO CAVANAUGH Discharge instructions and discharge home medications reviewed with Patient and a copy given. All questions have been answered and understanding verbalized. The following instructions and handouts were given: paracentesis Discontinued lines and drains: Peripheral IV intact. Patient discharged to Home or Self Care withFamily Membervia wheelchair.
--- NOTE | 2018-12-02 16:54 | RAD ---
Procedure: Ultrasound guided paracentesis Clinical Indication: 63-year-old with abdominal ascites Sedation: Local anesthesia only Antibiotics: None Fluoro Time: None Contrast: Not applicable Sterility: The procedure was performed in its entirety using appropriate elements of sterile technique. Consent: The procedure was explained in its entirety to the patient or the patients designated parts representative by a member of the treatment team, including a discussion of the risks, benefits and commonly accepted alternatives to the procedure, as well as the expected consequences of no therapy whatsoever. Discussion of the risks included, but was not limited to, those that are most frequent and those that are rare but possibly severe or life-threatening, as well as the possibility of unforeseen complications. Technique and Findings: Following informed consent, the patient was prepped and draped in the usual sterile fashion. Ultrasound interrogation of the abdomen revealed abdominal ascites. A hard copy ultrasound image was recorded. 1% Lidocaine was used to achieve local anesthesia over the area of interest, and a 6 Malagasy Kezs-E-Labsdzbf catheter was advanced into the peritoneal cavity under ultrasound guidance. 5700 cc of thin yellow ascites was then withdrawn. The catheter was removed and hemostasis was achieved with manual compression. Complications: No immediate Impression: 1. Ultrasound-guided paracentesis as described
== END 2018-12-02 11:15 | disposition home or self-care (01) ==
LOC: INTRAD 07:26
PROVIDERS: ATTEND Internal Medicine Gastroenterology
DX: R18.8 Other ascites (principal); K74.60 Unspecified cirrhosis of liver; K76.9 Liver disease, unspecified; K21.9 Gastro-esophageal reflux disease without esophagitis; I10 Essential (primary) hypertension; Z98.890 Other specified postprocedural states
CPT/HCPCS: 36415; 49083; 85025; 85610; 85730; P9046

== ENCOUNTER 2018-12-14 09:54 | Outpatient (CLI) | payer OTHER ==
[~2018-12-14] VITALS: Ht 152.4 cm; Wt 67.1 kg
[2018-12-14 10:39] VITALS: BP 146/66
[2018-12-14] MEDS ORDERED: ALBUMIN HUMAN 25% 100 ML IV ONE ×2 (11:49→12:00)
[2018-12-14 12:26] VITALS: BP 127/54
--- NOTE | 2018-12-14 13:02 | NUR ---
Discharge Note: FLACO CAVANAUGH Discharge instructions and discharge home medications reviewed with Patient and a copy given. All questions have been answered and understanding verbalized. The following instructions and handouts were given: Paracentesis. Discontinued lines and drains: PIV right AC, dressing clean dry intact. Patient discharged to home with via private vehichle.
--- NOTE | 2018-12-14 13:10 | RAD ---
Ultrasound-guided paracentesis 12/14/2018 1:06 PM Procedure: The risks and benefits of the procedure were discussed the patient. Informed consent was obtained. A timeout procedure was performed. Sonographic evaluation of the abdomen was performed demonstrating ascites . The right lower quadrant was prepped and draped using maximum sterile barrier technique. 1% lidocaine without epinephrine was administered for local anesthesia. Real-time ultrasonographic guidance was used in passing a 5 Slovenian Yueh catheter into the fluid collection. 7 L of serous ascites was removed. The catheter was removed and pressure held to achieve hemostasis. A sterile dressing was applied. Impression: Successful ultrasound-guided paracentesis
== END 2018-12-14 12:30 ==
LOC: INTRAD 09:54
PROVIDERS: ATTEND Internal Medicine Gastroenterology
DX: R18.8 Other ascites (principal)
CPT/HCPCS: 49083; P9046

== ENCOUNTER 2018-12-28 10:05 | Outpatient (CLI) | payer OTHER ==
[2018-12-28] VITALS (7 sets, daily range): BP systolic 137–153; BP diastolic 67–86
[~2018-12-28] VITALS: Ht 160 cm; Wt 68.0 kg
[2018-12-28] MEDS ORDERED: ALBUMIN HUMAN 25% 100 ML IV ONE ×2 (11:10→11:30)
--- NOTE | 2018-12-28 12:48 | NUR ---
Discharge Note: FLACO CAVANAUGH Discharge instructions and discharge home medications reviewed with Patient and a copy given. All questions have been answered and understanding verbalized. The following instructions and handouts were given: paracentesis Discontinued lines and drains: Peripheral IV intact. Patient discharged to Home or Self Care withSpousevia Wheelchair
--- NOTE | 2018-12-28 16:28 | RAD ---
Ultrasound-guided paracentesis 12/28/2018 4:24 PM Procedure: The risks and benefits of the procedure were discussed the patient. Informed consent was obtained. A timeout procedure was performed. Sonographic evaluation of the abdomen was performed demonstrating ascites . The right lower quadrant was prepped and draped using maximum sterile barrier technique. 1% lidocaine without epinephrine was administered for local anesthesia. Real-time ultrasonographic guidance was used in passing a 5 Latvian Yueh catheter into the fluid collection. 7 L of serous ascites was removed. The catheter was removed and pressure held to achieve hemostasis. A sterile dressing was applied. Impression: Successful ultrasound-guided paracentesis
== END 2018-12-28 12:30 | disposition home or self-care (01) ==
LOC: INTRAD 10:05
PROVIDERS: ATTEND Internal Medicine Gastroenterology
DX: R18.8 Other ascites (principal)
CPT/HCPCS: 49083; P9046

== ENCOUNTER 2019-01-07 08:37 | Outpatient (CLI) | payer OTHER ==
[~2019-01-07] VITALS: Ht 160 cm; Wt 66.4 kg
[2019-01-07] VITALS (7 sets, daily range): BP systolic 121–162; BP diastolic 63–85
[2019-01-07 09:09] LABS: BASO % 1 % (0-3); EOS # 0.1 x10^3/uL (0.0-0.7); EOS % 2 % (0-3); HEMATOCRIT 37.4 % (36.0-47.0); HEMOGLOBIN 12.3 g/dL (12.0-15.5); LYMPH # 0.7 x10^3/uL (1.0-4.8); LYMPH % 12 % (24-48); MEAN CORPUSCULAR HEMOGLOBIN 28 pg (25-35); MEAN CORPUSCULAR HGB CONC 33 g/dL (31-37); MEAN CORPUSCULAR VOLUME 87 fL (79-100); MONO # 0.5 x10^3/uL (0.0-1.1); MONO % 9 % (0-9); NEUT # 4.5 x10^3uL (1.8-7.7); NEUT % 76 % (31-73); PLATELET COUNT 364 x10^3/uL (140-400); RED BLOOD COUNT 4.31 x10^6/uL (3.50-5.40); WHITE BLOOD COUNT 5.9 x10^3/uL (4.0-11.0)
[2019-01-07 09:14] LABS: PROTHROMBIN TIME PATIENT 13.5 SEC (11.7-14.0)
[2019-01-07] MEDS ORDERED: ALBUMIN HUMAN 25% 100 ML IV ONE ×3 (10:27→11:00)
--- NOTE | 2019-01-07 11:30 | NUR ---
pt A&O x3. denies pain, nausea or dizziness. tolerating po well. VSS. ambulated to BR w/o problem. d/c instructions reviewed . out to vehicle per w/c. site on rt lower abd clean and intact.
--- NOTE | 2019-01-07 13:49 | RAD ---
Ultrasound-guided paracentesis 01/07/2019 1:44 PM Procedure: The risks and benefits of the procedure were discussed the patient. Informed consent was obtained. A timeout procedure was performed. Sonographic evaluation of the abdomen was performed demonstrating ascites . The right lower quadrant was prepped and draped using maximum sterile barrier technique. 1% lidocaine without epinephrine was administered for local anesthesia. Real-time ultrasonographic guidance was used in passing a 5 Pashto Yueh catheter into the fluid collection. 6.3 L of serous ascites was removed. The catheter was removed and pressure held to achieve hemostasis. A sterile dressing was applied. Impression: Successful ultrasound-guided paracentesis
== END 2019-01-07 11:30 | disposition home or self-care (01) ==
LOC: INTRAD 08:37
PROVIDERS: ATTEND Internal Medicine Gastroenterology
DX: R18.8 Other ascites (principal); Z79.899 Other long term (current) drug therapy; Z79.01 Long term (current) use of anticoagulants
CPT/HCPCS: 36415; 49083; 85025; 85610; 85730; P9046

== ENCOUNTER 2019-01-18 10:03 | Outpatient (CLI) | payer OTHER ==
[~2019-01-18] VITALS: Ht 161.3 cm; Wt 65.8 kg
[2019-01-18 10:43] VITALS: BP 130/57
[2019-01-18 10:46] VITALS: BP 137/72
[2019-01-18] MEDS ORDERED: ALBUMIN HUMAN 25% 100 ML IV ONE ×2 (11:09→11:15)
--- NOTE | 2019-01-18 12:26 | NUR ---
Discharge Note: FLACO CAVANAUGH Discharge instructions and discharge home medications reviewed with Patient and a copy given. All questions have been answered and understanding verbalized. The following instructions and handouts were given: Paracentesis. Discontinued lines and drains: right hand PIV, dressing clean dry intact. Patient discharged to home with via private vehicle.
--- NOTE | 2019-01-18 12:49 | RAD ---
Ultrasound-guided paracentesis 01/18/2019 12:45 PM Procedure: The risks and benefits of the procedure were discussed the patient. Informed consent was obtained. A timeout procedure was performed. Sonographic evaluation of the abdomen was performed demonstrating ascites . The right lower quadrant was prepped and draped using maximum sterile barrier technique. 1% lidocaine without epinephrine was administered for local anesthesia. Real-time ultrasonographic guidance was used in passing a 5 Djiboutian Yueh catheter into the fluid collection. 5.6 L of serous ascites was removed. The catheter was removed and pressure held to achieve hemostasis. A sterile dressing was applied. Impression: Successful ultrasound-guided paracentesis
== END 2019-01-18 12:00 | disposition home or self-care (01) ==
LOC: INTRAD 10:03
PROVIDERS: ATTEND Internal Medicine Gastroenterology
DX: R18.8 Other ascites (principal)
CPT/HCPCS: 49083; P9046

== ENCOUNTER 2019-02-10 08:32 | Outpatient (CLI) | payer OTHER ==
[~2019-02-10] VITALS: Ht 161.3 cm; Wt 65.8 kg
[2019-02-10] VITALS (7 sets, daily range): BP systolic 124–151; BP diastolic 64–87
[2019-02-10 08:53] LABS: BASO # 0.1 x10^3/uL (0.0-0.2); BASO % 1 % (0-3); EOS # 0.1 x10^3/uL (0.0-0.7); EOS % 2 % (0-3); HEMATOCRIT 36.9 % (36.0-47.0); HEMOGLOBIN 12.3 g/dL (12.0-15.5); LYMPH # 0.7 x10^3/uL (1.0-4.8); LYMPH % 11 % (24-48); MEAN CORPUSCULAR HEMOGLOBIN 29 pg (25-35); MEAN CORPUSCULAR HGB CONC 33 g/dL (31-37); MEAN CORPUSCULAR VOLUME 87 fL (79-100); MONO # 0.4 x10^3/uL (0.0-1.1); MONO % 7 % (0-9); NEUT % 78 % (31-73); PLATELET COUNT 389 x10^3/uL (140-400); RED BLOOD COUNT 4.27 x10^6/uL (3.50-5.40); RED CELL DISTRIBUTION WIDTH 15.9 % (11.5-14.5); WHITE BLOOD COUNT 6.4 x10^3/uL (4.0-11.0)
[2019-02-10 09:05] LABS: PROTHROMBIN TIME PATIENT 12.9 SEC (11.7-14.0)
[2019-02-10] MEDS ORDERED: ALBUMIN HUMAN 25% 100 ML IV ONE ×2 (10:17→10:30)
--- NOTE | 2019-02-10 11:10 | NUR ---
pt site on rt abd is clean and dry. pt denies pain or dizziness. tolerating po well. VSS. pt ambulated to BR w/o problem. d/c instructions reviewed. out to vehicle per w/c, to drive her home.
--- NOTE | 2019-02-10 16:35 | RAD ---
Ultrasound-guided paracentesis 02/10/2019 4:31 PM Procedure: The risks and benefits of the procedure were discussed the patient. Informed consent was obtained. A timeout procedure was performed. Sonographic evaluation of the abdomen was performed demonstrating ascites . The right lower quadrant was prepped and draped using maximum sterile barrier technique. 1% lidocaine without epinephrine was administered for local anesthesia. Real-time ultrasonographic guidance was used in passing a 5 Tamazight Yueh catheter into the fluid collection. 5.8 L of serous ascites was removed. The catheter was removed and pressure held to achieve hemostasis. A sterile dressing was applied. Impression: Successful ultrasound-guided paracentesis
== END 2019-02-10 11:15 | disposition home or self-care (01) ==
LOC: INTRAD 08:32
PROVIDERS: ATTEND Internal Medicine Gastroenterology
DX: R18.8 Other ascites (principal)
CPT/HCPCS: 36415; 49083; 85025; 85610; P9046

== ENCOUNTER 2019-02-22 08:39 | Outpatient (CLI) | payer OTHER ==
[~2019-02-22] VITALS: Ht 160 cm; Wt 65.3 kg
[2019-02-22 09:22] VITALS: BP 126/73
[2019-02-22 09:27] VITALS: BP 110/58
[2019-02-22] MEDS ORDERED: ALBUMIN HUMAN 25% 100 ML IV ONE ×3 (09:34→10:20)
[2019-02-22 09:45] VITALS: BP 114/56
[2019-02-22 10:00] VITALS: BP 115/55
[2019-02-22 10:05] VITALS: BP 115/59
[2019-02-22 10:20] VITALS: BP 111/55
[2019-02-22] MEDS ORDERED: ALBUMIN HUMAN 25% 50 ML IV ONE (11:00)
--- NOTE | 2019-02-22 15:06 | RAD ---
Ultrasound-guided paracentesis 02/22/2019 3:02 PM Procedure: The risks and benefits of the procedure were discussed the patient. Informed consent was obtained. A timeout procedure was performed. Sonographic evaluation of the abdomen was performed demonstrating ascites . The right lower quadrant was prepped and draped using maximum sterile barrier technique. 1% lidocaine without epinephrine was administered for local anesthesia. Real-time ultrasonographic guidance was used in passing a 5 Macedonian Yueh catheter into the fluid collection. 5.7 L of serous ascites was removed. The catheter was removed and pressure held to achieve hemostasis. A sterile dressing was applied. Impression: Successful ultrasound-guided paracentesis
== END 2019-02-22 10:45 | disposition home or self-care (01) ==
LOC: INTRAD 08:39
PROVIDERS: ATTEND Internal Medicine Gastroenterology
DX: R18.8 Other ascites (principal)
CPT/HCPCS: 49083; P9046

== ENCOUNTER 2019-03-08 08:37 | Outpatient (CLI) | payer OTHER ==
[2019-03-08] VITALS (7 sets, daily range): BP systolic 106–159; BP diastolic 63–90
[~2019-03-08] VITALS: Ht 160 cm; Wt 64.0 kg
[~2019-03-08 08:37] MED LIST changes: +LISI1TAB19 PO; -LISI1TAB5 PO
[2019-03-08] MEDS ORDERED: ALBUMIN HUMAN 25% 100 ML IV ONE ×4 (10:00→10:41)
--- NOTE | 2019-03-08 14:56 | RAD ---
Ultrasound-guided paracentesis 03/08/2019 12:52 PM Procedure: The risks and benefits of the procedure were discussed the patient. Informed consent was obtained. A timeout procedure was performed. Sonographic evaluation of the abdomen was performed demonstrating ascites . The right lower quadrant was prepped and draped using maximum sterile barrier technique. 1% lidocaine without epinephrine was administered for local anesthesia. Real-time ultrasonographic guidance was used in passing a 5 Thai Yueh catheter into the fluid collection. 7 L of serous ascites was removed. The catheter was removed and pressure held to achieve hemostasis. A sterile dressing was applied. Impression: Successful ultrasound-guided paracentesis
== END 2019-03-08 11:20 | disposition home or self-care (01) ==
LOC: INTRAD 08:37
PROVIDERS: ATTEND Internal Medicine Gastroenterology
DX: R18.8 Other ascites (principal)
CPT/HCPCS: 49083; P9046

== ENCOUNTER 2019-03-18 08:50 | Outpatient (CLI) | payer OTHER ==
[~2019-03-18] VITALS: Ht 161.3 cm; Wt 62.1 kg
[2019-03-18 09:11] LABS: BASO # 0.1 x10^3/uL (0.0-0.2); BASO % 1 % (0-3); EOS # 0.1 x10^3/uL (0.0-0.7); EOS % 2 % (0-3); HEMATOCRIT 38.1 % (36.0-47.0); HEMOGLOBIN 12.7 g/dL (12.0-15.5); LYMPH # 0.8 x10^3/uL (1.0-4.8); LYMPH % 13 % (24-48); MEAN CORPUSCULAR HEMOGLOBIN 29 pg (25-35); MEAN CORPUSCULAR HGB CONC 33 g/dL (31-37); MEAN CORPUSCULAR VOLUME 86 fL (79-100); MONO # 0.4 x10^3/uL (0.0-1.1); MONO % 7 % (0-9); NEUT % 78 % (31-73); PLATELET COUNT 483 x10^3/uL (140-400); RED BLOOD COUNT 4.43 x10^6/uL (3.50-5.40); RED CELL DISTRIBUTION WIDTH 15.7 % (11.5-14.5); WHITE BLOOD COUNT 6.4 x10^3/uL (4.0-11.0)
[2019-03-18 09:17] LABS: PROTHROMBIN TIME PATIENT 13.2 SEC (11.7-14.0)
[2019-03-18 09:30] VITALS: BP 138/75
[2019-03-18 09:55] VITALS: BP 146/79
[2019-03-18 10:15] VITALS: BP 128/77
[2019-03-18] MEDS ORDERED: ALBUMIN HUMAN 25% 100 ML IV ONE ×2 (10:16→10:30)
[2019-03-18 10:30] VITALS: BP 130/64
[2019-03-18 10:45] VITALS: BP 126/68
[2019-03-18 11:09] VITALS: BP 136/69
--- NOTE | 2019-03-18 15:44 | RAD ---
Ultrasound-guided paracentesis 03/18/2019 Procedure: The risks and benefits of the procedure were discussed the patient. Informed consent was obtained. A timeout procedure was performed. Sonographic evaluation of the abdomen was performed demonstrating ascites . The right lower quadrant was prepped and draped using maximum sterile barrier technique. 1% lidocaine without epinephrine was administered for local anesthesia. Real-time ultrasonographic guidance was used in passing a 5 Ugandan Yueh catheter into the fluid collection. 5.3 L of serous ascites was removed. The catheter was removed and pressure held to achieve hemostasis. A sterile dressing was applied. Impression: Successful ultrasound-guided paracentesis
== END 2019-03-18 11:13 | disposition home or self-care (01) ==
LOC: INTRAD 08:50
PROVIDERS: ATTEND Internal Medicine Gastroenterology
DX: K70.31 Alcoholic cirrhosis of liver with ascites (principal); K21.9 Gastro-esophageal reflux disease without esophagitis; I10 Essential (primary) hypertension; Z98.890 Other specified postprocedural states; Z88.0 Allergy status to penicillin
CPT/HCPCS: 36415; 49083; 85025; 85610; 85730; P9046

== ENCOUNTER 2019-03-29 07:11 | Outpatient (CLI) | payer OTHER ==
[~2019-03-29] VITALS: Ht 161.3 cm; Wt 62.6 kg
[2019-03-29 07:45] VITALS: BP 126/70
[2019-03-29 08:20] VITALS: BP 141/85
[2019-03-29] MEDS ORDERED: ALBUMIN HUMAN 25% 100 ML IV ONE ×2 (08:44→09:00)
[2019-03-29 08:50] VITALS: BP 122/72
[2019-03-29 09:00] VITALS: BP 124/58
--- NOTE | 2019-03-29 10:41 | RAD ---
Ultrasound-guided paracentesis 03/29/2019 8:37 AM Procedure: The risks and benefits of the procedure were discussed the patient. Informed consent was obtained. A timeout procedure was performed. Sonographic evaluation of the abdomen was performed demonstrating ascites . The right lower quadrant was prepped and draped using maximum sterile barrier technique. 1% lidocaine without epinephrine was administered for local anesthesia. Real-time ultrasonographic guidance was used in passing a 5 Slovak Yueh catheter into the fluid collection. 5 L of serous ascites was removed. The catheter was removed and pressure held to achieve hemostasis. A sterile dressing was applied. Impression: Successful ultrasound-guided paracentesis
== END 2019-03-29 09:32 | disposition home or self-care (01) ==
LOC: INTRAD 07:11
PROVIDERS: ATTEND Internal Medicine Gastroenterology
DX: R18.8 Other ascites (principal)
CPT/HCPCS: 49083; P9046

== ENCOUNTER 2019-04-08 08:31 | Outpatient (CLI) | payer OTHER ==
[~2019-04-08] VITALS: Ht 162.6 cm; Wt 62.1 kg
[2019-04-08 09:13] VITALS: BP 136/66
[2019-04-08 09:34] VITALS: BP 133/76
[2019-04-08] MEDS ORDERED: ALBUMIN HUMAN 25% 100 ML IV ONE ×3 (09:39→10:20)
[2019-04-08 09:49] VITALS: BP 132/78
--- NOTE | 2019-04-08 09:55 | NUR ---
abd fluid is cloudy yellow Addendum: 04/08/19 at 0957 by JACOB SOLO RN Amended: Links added.
[2019-04-08 10:09] VITALS: BP 131/69
[2019-04-08] MEDS ORDERED: ALBUMIN HUMAN 25% 50 ML IV ONE (10:15)
[2019-04-08 10:24] VITALS: BP 110/62
[2019-04-08 10:44] VITALS: BP 117/74
--- NOTE | 2019-04-08 11:00 | NUR ---
Discharge Note: FLACO CAVANAUGH Discharge instructions and discharge home medications reviewed with Patient and a copy given. All questions have been answered and understanding verbalized. The following instructions and handouts were given: Post thoracentesis Discontinued lines and drains: Right hand IV dc'd, tip intact. Patient discharged to home with via car.
--- NOTE | 2019-04-08 14:56 | RAD ---
Procedure: Ultrasound guided paracentesis Clinical Indication: 63-year-old with cirrhosis and recurrent abdominal ascites Sedation: Local anesthesia only Antibiotics: None Fluoro Time: None Contrast: Not applicable Sterility: The procedure was performed in its entirety using appropriate elements of sterile technique. Consent: The procedure was explained in its entirety to the patient or the patients designated product sales representative by a member of the treatment team, including a discussion of the risks, benefits and commonly accepted alternatives to the procedure, as well as the expected consequences of no therapy whatsoever. Discussion of the risks included, but was not limited to, those that are most frequent and those that are rare but possibly severe or life-threatening, as well as the possibility of unforeseen complications. Technique and Findings: Following informed consent, the patient was prepped and draped in the usual sterile fashion. Ultrasound interrogation of the abdomen revealed abdominal ascites. A hard copy ultrasound image was recorded. 1% Lidocaine was used to achieve local anesthesia over the area of interest, and a 6 American Fpff-L-Ldxdxpti catheter was advanced into the peritoneal cavity under ultrasound guidance. 5725 cc of thin yellow ascites was then withdrawn. The catheter was removed and hemostasis was achieved with manual compression. Complications: No immediate Impression: 1. Ultrasound-guided paracentesis as described
== END 2019-04-08 11:00 | disposition home or self-care (01) ==
LOC: INTRAD 08:31
PROVIDERS: ATTEND Internal Medicine Gastroenterology
DX: R18.8 Other ascites (principal); K74.60 Unspecified cirrhosis of liver
CPT/HCPCS: 49083; P9046

== ENCOUNTER 2019-04-19 07:04 | Outpatient (CLI) | payer OTHER ==
[~2019-04-19] VITALS: Ht 162.6 cm; Wt 63.5 kg
[2019-04-19] VITALS (7 sets, daily range): BP systolic 107–130; BP diastolic 64–84
[2019-04-19 07:54] LABS: BASO # 0.1 x10^3/uL (0.0-0.2); BASO % 1 % (0-3); EOS # 0.1 x10^3/uL (0.0-0.7); EOS % 2 % (0-3); HEMATOCRIT 36.3 % (36.0-47.0); HEMOGLOBIN 11.7 g/dL (12.0-15.5); LYMPH # 0.8 x10^3/uL (1.0-4.8); LYMPH % 13 % (24-48); MEAN CORPUSCULAR HEMOGLOBIN 28 pg (25-35); MEAN CORPUSCULAR HGB CONC 32 g/dL (31-37); MEAN CORPUSCULAR VOLUME 87 fL (79-100); MONO # 0.5 x10^3/uL (0.0-1.1); MONO % 8 % (0-9); NEUT # 4.8 x10^3/uL (1.8-7.7); NEUT % 76 % (31-73); PLATELET COUNT 434 x10^3/uL (140-400); RED BLOOD COUNT 4.19 x10^6/uL (3.50-5.40); RED CELL DISTRIBUTION WIDTH 15.9 % (11.5-14.5); WHITE BLOOD COUNT 6.3 x10^3/uL (4.0-11.0)
[2019-04-19 08:15] LABS: PROTHROMBIN TIME PATIENT 12.7 SEC (11.7-14.0)
[2019-04-19] MEDS ORDERED: ALBUMIN HUMAN 25% 100 ML IV ONE ×2 (08:50→09:15)
--- NOTE | 2019-04-19 09:54 | NUR ---
Discharge Note: FLACO CAVANAUGH Discharge instructions and discharge home medications reviewed with Patient and a copy given. All questions have been answered and understanding verbalized. The following instructions and handouts were given: Discontinued lines and drains: Peripheral IV intact. Patient discharged to Home or Self Care with Spouse via Wheelchair
--- NOTE | 2019-04-20 09:00 | RAD ---
Ultrasound-guided paracentesis 04/19/2019 Procedure: The risks and benefits of the procedure were discussed the patient. Informed consent was obtained. A timeout procedure was performed. Sonographic evaluation of the abdomen was performed demonstrating ascites . The right lower quadrant was prepped and draped using maximum sterile barrier technique. 1% lidocaine without epinephrine was administered for local anesthesia. Real-time ultrasonographic guidance was used in passing a 5 Spanish Yueh catheter into the fluid collection. 6.1 L of serous ascites was removed. The catheter was removed and pressure held to achieve hemostasis. A sterile dressing was applied. Impression: Successful ultrasound-guided paracentesis
== END 2019-04-19 09:30 | disposition home or self-care (01) ==
LOC: INTRAD 07:04
PROVIDERS: ATTEND Internal Medicine Gastroenterology
DX: K74.60 Unspecified cirrhosis of liver (principal)
CPT/HCPCS: 36415; 49083; 85025; 85610; P9046

== ENCOUNTER 2019-04-29 09:59 | Outpatient (CLI) | payer OTHER ==
[~2019-04-29] VITALS: Ht 162.6 cm; Wt 63.5 kg
[2019-04-29 10:23] VITALS: BP 172/51
[2019-04-29 10:44] VITALS: BP 142/73
[2019-04-29] MEDS ORDERED: ALBUMIN HUMAN 25% 100 ML IV ONE ×3 (10:45→11:10)
[2019-04-29 10:59] VITALS: BP 125/62
[2019-04-29 11:16] VITALS: BP 122/63
[2019-04-29 11:25] VITALS: BP 113/52
--- NOTE | 2019-04-29 11:25 | RAD ---
Ultrasound-guided paracentesis 04/29/2019 9:22 AM Procedure: The risks and benefits of the procedure were discussed the patient. Informed consent was obtained. A timeout procedure was performed. Sonographic evaluation of the abdomen was performed demonstrating ascites . The right lower quadrant was prepped and draped using maximum sterile barrier technique. 1% lidocaine without epinephrine was administered for local anesthesia. Real-time ultrasonographic guidance was used in passing a 5 Georgian Yueh catheter into the fluid collection. 6.2 L of serous ascites was removed. The catheter was removed and pressure held to achieve hemostasis. A sterile dressing was applied. Impression: Successful ultrasound-guided paracentesis
--- NOTE | 2019-04-29 11:43 | NUR ---
pt discharged to home with family. PIV dcd. Instructions reviewed with pt.
== END 2019-04-29 11:44 | disposition home or self-care (01) ==
LOC: INTRAD 09:59
PROVIDERS: ATTEND Internal Medicine Gastroenterology
DX: R18.8 Other ascites (principal)
CPT/HCPCS: 49083; P9046

== ENCOUNTER 2019-05-09 08:55 | Outpatient (CLI) | payer OTHER, MEDICARE ==
[~2019-05-09] VITALS: Ht 162.6 cm; Wt 63.5 kg
[2019-05-09] VITALS (7 sets, daily range): BP systolic 109–129; BP diastolic 51–71
[2019-05-09] MEDS ORDERED: ALBUMIN HUMAN 25% 100 ML IV ONE ×3 (11:20→12:09)
[2019-05-09] MEDS ORDERED: ALBUMIN HUMAN 25% 50 ML IV ONE (12:15)
--- NOTE | 2019-05-09 13:29 | NUR ---
Discharge instructions and discharge home medications reviewed with Patient and a copy given. All questions have been answered and understanding verbalized. The following instructions and handouts were given paracentesis post care. Discontinued PIV. Patient discharged to home with self care.
--- NOTE | 2019-05-09 13:59 | RAD ---
Ultrasound-guided paracentesis 05/09/2019 Procedure: The risks and benefits of the procedure were discussed the patient. Informed consent was obtained. A timeout procedure was performed. Sonographic evaluation of the abdomen was performed demonstrating ascites . The right lower quadrant was prepped and draped using maximum sterile barrier technique. 1% lidocaine without epinephrine was administered for local anesthesia. Real-time ultrasonographic guidance was used in passing a 5 Tongan Yueh catheter into the fluid collection. 5.4 L of serous ascites was removed. The catheter was removed and pressure held to achieve hemostasis. A sterile dressing was applied. Impression: Successful ultrasound-guided paracentesis
== END 2019-05-09 13:31 | disposition home or self-care (01) ==
LOC: INTRAD 08:55
PROVIDERS: ATTEND Internal Medicine Gastroenterology
DX: R18.8 Other ascites (principal)
CPT/HCPCS: 49083; P9046

== ENCOUNTER 2019-05-19 08:35 | Outpatient (CLI) | payer MEDICARE, OTHER ==
[~2019-05-19] VITALS: Ht 162.6 cm; Wt 63.5 kg
[2019-05-19 09:09] VITALS: BP 140/66
[2019-05-19 09:30] VITALS: BP 130/80
[2019-05-19 09:45] VITALS: BP 126/61
[2019-05-19 10:00] VITALS: BP 114/48
[2019-05-19] MEDS ORDERED: ALBUMIN HUMAN 25% 200 ML IV ONE (10:02)
[2019-05-19 10:15] VITALS: BP 108/48
[2019-05-19] MEDS ORDERED: ALBUMIN HUMAN 25% 100 ML IV ONE ×2 (10:15)
[2019-05-19 10:27] VITALS: BP 106/64
--- NOTE | 2019-05-19 13:29 | RAD ---
Ultrasound-guided paracentesis 05/19/2019 Procedure: The risks and benefits of the procedure were discussed the patient. Informed consent was obtained. A timeout procedure was performed. Sonographic evaluation of the abdomen was performed demonstrating ascites . The right lower quadrant was prepped and draped using maximum sterile barrier technique. 1% lidocaine without epinephrine was administered for local anesthesia. Real-time ultrasonographic guidance was used in passing a 5 Liberian Yueh catheter into the fluid collection. 6.3 L of serous ascites was removed. The catheter was removed and pressure held to achieve hemostasis. A sterile dressing was applied. Impression: Successful ultrasound-guided paracentesis
== END 2019-05-19 11:00 | disposition home or self-care (01) ==
LOC: INTRAD 08:35
PROVIDERS: ATTEND Internal Medicine Gastroenterology
DX: K74.60 Unspecified cirrhosis of liver (principal)
CPT/HCPCS: 49083; P9046

== ENCOUNTER 2019-05-30 08:39 | Outpatient (CLI) | payer MEDICARE ==
[~2019-05-30] VITALS: Ht 161.3 cm; Wt 64.4 kg
[2019-05-30 08:57] LABS: BASO # 0.1 x10^3/uL (0.0-0.2); BASO % 1 % (0-3); EOS # 0.1 x10^3/uL (0.0-0.7); EOS % 2 % (0-3); HEMATOCRIT 36.3 % (36.0-47.0); HEMOGLOBIN 11.8 g/dL (12.0-15.5); LYMPH # 0.7 x10^3/uL (1.0-4.8); LYMPH % 11 % (24-48); MEAN CORPUSCULAR HEMOGLOBIN 28 pg (25-35); MEAN CORPUSCULAR HGB CONC 33 g/dL (31-37); MEAN CORPUSCULAR VOLUME 86 fL (79-100); MONO # 0.5 x10^3/uL (0.0-1.1); MONO % 8 % (0-9); NEUT % 79 % (31-73); PLATELET COUNT 519 x10^3/uL (140-400); RED BLOOD COUNT 4.22 x10^6/uL (3.50-5.40); RED CELL DISTRIBUTION WIDTH 16.1 % (11.5-14.5); WHITE BLOOD COUNT 6.4 x10^3/uL (4.0-11.0)
[2019-05-30 09:06] LABS: PROTHROMBIN TIME PATIENT 12.5 SEC (11.7-14.0)
[2019-05-30 09:23] VITALS: BP 138/80
[2019-05-30] MEDS ORDERED: ALBUMIN HUMAN 25% 100 ML IV ONE ×4 (10:55→11:30)
[2019-05-30 10:57] VITALS: BP 138/87
[2019-05-30 11:17] VITALS: BP 124/71
[2019-05-30 11:28] VITALS: BP 117/68
[2019-05-30 11:49] VITALS: BP 120/62
[2019-05-30 12:08] VITALS: BP 127/60
--- NOTE | 2019-05-31 13:09 | RAD ---
Procedure: Ultrasound guided paracentesis Clinical Indication: Adult female with recurrent abdominal ascites Sedation: Local anesthesia only Antibiotics: None Fluoro Time: None Contrast: Not applicable Sterility: The procedure was performed in its entirety using appropriate elements of sterile technique. Consent: The procedure was explained in its entirety to the patient or the patients designated plastic products sales representative by a member of the treatment team, including a discussion of the risks, benefits and commonly accepted alternatives to the procedure, as well as the expected consequences of no therapy whatsoever. Discussion of the risks included, but was not limited to, those that are most frequent and those that are rare but possibly severe or life-threatening, as well as the possibility of unforeseen complications. Technique and Findings: Following informed consent, the patient was prepped and draped in the usual sterile fashion. Ultrasound interrogation of the abdomen revealed abdominal ascites. A hard copy ultrasound image was recorded. 1% Lidocaine was used to achieve local anesthesia over the area of interest, and a 6 Luxembourgish Ximt-G-Qotfuclx catheter was advanced into the peritoneal cavity under ultrasound guidance. 6500 cc of thin yellow ascites was then withdrawn. The catheter was removed and hemostasis was achieved with manual compression. Complications: No immediate Impression: 1. Ultrasound-guided paracentesis as described
== END 2019-05-30 12:15 | disposition home or self-care (01) ==
LOC: INTRAD 08:39
PROVIDERS: ATTEND Internal Medicine Gastroenterology
DX: K74.60 Unspecified cirrhosis of liver (principal)
CPT/HCPCS: 36415; 49083; 85025; 85610; P9046

== ENCOUNTER 2019-06-07 07:14 | Outpatient (CLI) | payer MEDICARE ==
[~2019-06-07] VITALS: Ht 160 cm; Wt 63.0 kg
[2019-06-07 08:03] VITALS: BP 120/74
[2019-06-07 08:15] VITALS: BP 132/73
[2019-06-07 08:30] VITALS: BP 123/58
[2019-06-07] MEDS ORDERED: ALBUMIN HUMAN 25% 200 ML IV ONE (08:35)
[2019-06-07 08:45] VITALS: BP 119/55
[2019-06-07] MEDS ORDERED: ALBUMIN HUMAN 25% 100 ML IV ONE (08:45)
[2019-06-07] MEDS ORDERED: ALBUMIN HUMAN 25% 50 ML IV ONE (08:45)
[2019-06-07 09:00] VITALS: BP 112/64
[2019-06-07 09:15] VITALS: BP 113/70
--- NOTE | 2019-06-07 12:59 | RAD ---
Ultrasound-guided paracentesis 06/07/2019 10:55 AM Procedure: The risks and benefits of the procedure were discussed the patient. Informed consent was obtained. A timeout procedure was performed. Sonographic evaluation of the abdomen was performed demonstrating ascites . The right lower quadrant was prepped and draped using maximum sterile barrier technique. 1% lidocaine without epinephrine was administered for local anesthesia. Real-time ultrasonographic guidance was used in passing a 5 Scottish Yueh catheter into the fluid collection. 5.6 L of serous ascites was removed. The catheter was removed and pressure held to achieve hemostasis. A sterile dressing was applied. Impression: Successful ultrasound-guided paracentesis
== END 2019-06-07 09:55 | disposition home or self-care (01) ==
LOC: INTRAD 07:14
PROVIDERS: ATTEND Internal Medicine Gastroenterology
DX: K74.60 Unspecified cirrhosis of liver (principal)
CPT/HCPCS: 49083; P9046

== ENCOUNTER 2019-06-16 08:35 | Outpatient (CLI) | payer MEDICARE ==
[~2019-06-16] VITALS: Ht 162.6 cm; Wt 63.5 kg
[2019-06-16 08:53] VITALS: BP 124/68
[2019-06-16] MEDS ORDERED: ALBUMIN HUMAN 25% 100 ML IV ONE ×4 (09:18→09:30)
[2019-06-16 09:47] VITALS: BP 110/57
[2019-06-16 10:02] VITALS: BP 101/65
[2019-06-16 10:17] VITALS: BP 115/56
--- NOTE | 2019-06-16 10:29 | RAD ---
Ultrasound-guided paracentesis 06/16/2019 Procedure: The risks and benefits of the procedure were discussed the patient. Informed consent was obtained. A timeout procedure was performed. Sonographic evaluation of the abdomen was performed demonstrating ascites . The right lower quadrant was prepped and draped using maximum sterile barrier technique. 1% lidocaine without epinephrine was administered for local anesthesia. Real-time ultrasonographic guidance was used in passing a 5 Maltese Yueh catheter into the fluid collection. 6 L of serous ascites was removed. The catheter was removed and pressure held to achieve hemostasis. A sterile dressing was applied. Impression: Successful ultrasound-guided paracentesis
--- NOTE | 2019-06-16 10:41 | NUR ---
pt A&O x3. denies pain or nausea. VSS. dressing on rt abd D&I. tolerating po well. ambulated w/o problem. out to vehicle per w\c
== END 2019-06-16 10:44 | disposition home or self-care (01) ==
LOC: INTRAD 08:35
PROVIDERS: ATTEND Internal Medicine Gastroenterology
DX: R18.8 Other ascites (principal)
CPT/HCPCS: 49083; P9046

== ENCOUNTER 2019-06-24 08:43 | Outpatient (CLI) | payer MEDICARE ==
[~2019-06-24] VITALS: Ht 162.6 cm; Wt 62.6 kg
[2019-06-24 09:12] VITALS: BP 134/68
[2019-06-24 09:19] VITALS: BP 134/66
[2019-06-24 09:27] VITALS: BP 125/58
[2019-06-24] MEDS ORDERED: ALBUMIN HUMAN 25% 100 ML IV ONE ×3 (09:39→09:45)
[2019-06-24 09:42] VITALS: BP 116/47
[2019-06-24] MEDS ORDERED: ALBUMIN HUMAN 25% 50 ML IV ONE (09:45)
--- NOTE | 2019-06-24 10:40 | NUR ---
Discharge Note: FLACO CAVANAUGH Discharge instructions and discharge home medications reviewed with Patient and Spouse and a copy given. All questions have been answered and understanding verbalized. The following instructions and handouts were given: Paracentesis. Discontinued lines and drains: PIV left hand, dressing clean dry intact. Patient discharged to home with via wheelchair to private vehicle.
--- NOTE | 2019-06-24 11:43 | RAD ---
Ultrasound-guided paracentesis 06/24/2019 Procedure: The risks and benefits of the procedure were discussed the patient. Informed consent was obtained. A timeout procedure was performed. Sonographic evaluation of the abdomen was performed demonstrating ascites . The right lower quadrant was prepped and draped using maximum sterile barrier technique. 1% lidocaine without epinephrine was administered for local anesthesia. Real-time ultrasonographic guidance was used in passing a 5 Cuban Yueh catheter into the fluid collection. 6 L of serous ascites was removed. The catheter was removed and pressure held to achieve hemostasis. A sterile dressing was applied. Impression: Successful ultrasound-guided paracentesis
== END 2019-06-24 10:40 | disposition home or self-care (01) ==
LOC: INTRAD 08:43
PROVIDERS: ATTEND Internal Medicine Gastroenterology
DX: R18.8 Other ascites (principal)
CPT/HCPCS: 49083; P9046

== ENCOUNTER 2019-07-01 10:00 | Outpatient (CLI) | payer MEDICARE ==
[~2019-07-01] VITALS: Ht 162.6 cm; Wt 62.6 kg
[2019-07-01 10:33] LABS: BASO # 0.1 x10^3/uL (0.0-0.2); BASO % 1 % (0-3); EOS # 0.1 x10^3/uL (0.0-0.7); EOS % 2 % (0-3); HEMATOCRIT 34.3 % (36.0-47.0); HEMOGLOBIN 11.3 g/dL (12.0-15.5); LYMPH # 0.8 x10^3/uL (1.0-4.8); LYMPH % 11 % (24-48); MEAN CORPUSCULAR HEMOGLOBIN 28 pg (25-35); MEAN CORPUSCULAR HGB CONC 33 g/dL (31-37); MEAN CORPUSCULAR VOLUME 86 fL (79-100); MONO # 0.4 x10^3/uL (0.0-1.1); MONO % 7 % (0-9); NEUT # 5.4 x10^3/uL (1.8-7.7); NEUT % 80 % (31-73); PLATELET COUNT 523 x10^3/uL (140-400); RED BLOOD COUNT 4.02 x10^6/uL (3.50-5.40); RED CELL DISTRIBUTION WIDTH 16.2 % (11.5-14.5); WHITE BLOOD COUNT 6.7 x10^3/uL (4.0-11.0)
[2019-07-01 10:45] VITALS: BP 145/57
[2019-07-01 10:52] LABS: PROTHROMBIN TIME PATIENT 12.4 SEC (11.7-14.0)
[2019-07-01 11:04] VITALS: BP 130/60
[2019-07-01] MEDS ORDERED: ALBUMIN HUMAN 25% 100 ML IV ONE ×4 (11:13→11:45)
[2019-07-01 11:19] VITALS: BP 123/62
[2019-07-01 11:31] VITALS: BP 127/56
--- NOTE | 2019-07-01 11:33 | NUR ---
paracentesis fluid is cloudy Addendum: 07/01/19 at 1135 by JACOB SOLO RN Amended: Links added.
[2019-07-01 11:40] VITALS: BP 117/61
[2019-07-01 11:55] VITALS: BP 110/49
--- NOTE | 2019-07-01 13:31 | RAD ---
Procedure: Ultrasound guided paracentesis Clinical Indication: 64-year-old with abdominal ascites Sedation: Local anesthesia only Antibiotics: None Fluoro Time: None Contrast: Not applicable Sterility: The procedure was performed in its entirety using appropriate elements of sterile technique. Consent: The procedure was explained in its entirety to the patient or the patients designated insurance healthcare representative by a member of the treatment team, including a discussion of the risks, benefits and commonly accepted alternatives to the procedure, as well as the expected consequences of no therapy whatsoever. Discussion of the risks included, but was not limited to, those that are most frequent and those that are rare but possibly severe or life-threatening, as well as the possibility of unforeseen complications. Technique and Findings: Following informed consent, the patient was prepped and draped in the usual sterile fashion. Ultrasound interrogation of the abdomen revealed abdominal ascites. A hard copy ultrasound image was recorded. 1% Lidocaine was used to achieve local anesthesia over the area of interest, and a 6 New Zealander Fxgf-V-Fjrzlttd catheter was advanced into the peritoneal cavity under ultrasound guidance. 5100 cc of thin yellow ascites was then withdrawn. The catheter was removed and hemostasis was achieved with manual compression. Complications: No immediate Impression: 1. Ultrasound-guided paracentesis as described
== END 2019-07-01 12:15 | disposition home or self-care (01) ==
LOC: INTRAD 10:00
PROVIDERS: ATTEND Internal Medicine Gastroenterology
DX: K74.60 Unspecified cirrhosis of liver (principal)
CPT/HCPCS: 36415; 49083; 85025; 85610; P9046

== ENCOUNTER 2019-07-11 08:04 | Outpatient (CLI) | payer MEDICARE ==
[~2019-07-11] VITALS: Ht 162.6 cm; Wt 64.0 kg
[2019-07-11 08:28] VITALS: BP 137/71
[2019-07-11 08:50] VITALS: BP 161/87
[2019-07-11 09:04] VITALS: BP 156/74
[2019-07-11] MEDS ORDERED: ALBUMIN HUMAN 25% 200 ML IV ONE (09:08)
[2019-07-11] MEDS ORDERED: ALBUMIN HUMAN 25% 100 ML IV ONE ×2 (09:15)
[2019-07-11 09:22] VITALS: BP 147/64
[2019-07-11 09:25] VITALS: BP 127/74
[2019-07-11 09:40] VITALS: BP 121/71
--- NOTE | 2019-07-11 15:40 | RAD ---
Ultrasound-guided paracentesis 06/24/2019 Procedure: The risks and benefits of the procedure were discussed the patient. Informed consent was obtained. A timeout procedure was performed. Sonographic evaluation of the abdomen was performed demonstrating ascites . The right lower quadrant was prepped and draped using maximum sterile barrier technique. 1% lidocaine without epinephrine was administered for local anesthesia. Real-time ultrasonographic guidance was used in passing a 5 Citizen Of [place] Yueh catheter into the fluid collection. 6.5 L of serous ascites was removed. The catheter was removed and pressure held to achieve hemostasis. A sterile dressing was applied. Impression: Successful ultrasound-guided paracentesis
== END 2019-07-11 10:20 | disposition home or self-care (01) ==
LOC: INTRAD 08:04
PROVIDERS: ATTEND Internal Medicine Gastroenterology
DX: R18.8 Other ascites (principal)
CPT/HCPCS: 49083; P9046

== ENCOUNTER 2019-07-18 09:27 | Outpatient (CLI) | payer MEDICARE ==
[~2019-07-18] VITALS: Ht 160 cm; Wt 63.2 kg
[2019-07-18 10:01] VITALS: BP 139/64
[2019-07-18 10:50] VITALS: BP 130/88
[2019-07-18] MEDS ORDERED: ALBUMIN HUMAN 25% 100 ML IV ONE ×2 (11:00→11:01)
[2019-07-18 11:03] VITALS: BP 121/73
[2019-07-18 11:11] VITALS: BP 121/73
[2019-07-18 11:20] VITALS: BP 124/66
[2019-07-18 11:51] VITALS: BP 104/50
--- NOTE | 2019-07-18 15:53 | RAD ---
Ultrasound-guided paracentesis 07/18/2019 1:49 PM Procedure: The risks and benefits of the procedure were discussed the patient. Informed consent was obtained. A timeout procedure was performed. Sonographic evaluation of the abdomen was performed demonstrating ascites . The right lower quadrant was prepped and draped using maximum sterile barrier technique. 1% lidocaine without epinephrine was administered for local anesthesia. Real-time ultrasonographic guidance was used in passing a 5 Portuguese Yueh catheter into the fluid collection. 5.5 L of serous ascites was removed. The catheter was removed and pressure held to achieve hemostasis. A sterile dressing was applied. Impression: Successful ultrasound-guided paracentesis
== END 2019-07-18 12:05 | disposition home or self-care (01) ==
LOC: INTRAD 09:27
PROVIDERS: ATTEND Internal Medicine Gastroenterology
DX: R18.8 Other ascites (principal); K74.69 Other cirrhosis of liver; Z88.0 Allergy status to penicillin; Z79.899 Other long term (current) drug therapy
CPT/HCPCS: 49083; P9046

== ENCOUNTER 2019-07-25 08:49 | Outpatient (CLI) | payer MEDICARE ==
[~2019-07-25] VITALS: Ht 162.6 cm; Wt 62.6 kg
[2019-07-25 09:15] VITALS: BP 127/76
[2019-07-25 09:32] VITALS: BP 135/75
[2019-07-25 09:47] VITALS: BP 138/78
[2019-07-25] MEDS ORDERED: ALBUMIN HUMAN 25% 100 ML IV ONE ×2 (09:53→10:00)
[2019-07-25 10:02] VITALS: BP 122/82
[2019-07-25 10:17] VITALS: BP 108/54
--- NOTE | 2019-07-26 12:45 | RAD ---
Ultrasound-guided paracentesis 07/18/2019 1:49 PM Procedure: The risks and benefits of the procedure were discussed the patient. Informed consent was obtained. A timeout procedure was performed. Sonographic evaluation of the abdomen was performed demonstrating ascites . The right lower quadrant was prepped and draped using maximum sterile barrier technique. 1% lidocaine without epinephrine was administered for local anesthesia. Real-time ultrasonographic guidance was used in passing a 5 Icelandic Yueh catheter into the fluid collection. 5L of serous ascites was removed. The catheter was removed and pressure held to achieve hemostasis. A sterile dressing was applied. Impression: Successful ultrasound-guided paracentesis
== END 2019-07-25 10:57 | disposition home or self-care (01) ==
LOC: INTRAD 08:49
PROVIDERS: ATTEND Internal Medicine Gastroenterology
DX: R18.8 Other ascites (principal)
CPT/HCPCS: 49083; P9046

== ENCOUNTER 2019-08-01 08:43 | Outpatient (CLI) | payer MEDICARE ==
[~2019-08-01] VITALS: Ht 162.6 cm; Wt 63.6 kg
[2019-08-01 09:06] LABS: BASO # 0.1 x10^3/uL (0.0-0.2); BASO % 1 % (0-3); EOS # 0.1 x10^3/uL (0.0-0.7); EOS % 2 % (0-3); HEMATOCRIT 33.7 % (36.0-47.0); HEMOGLOBIN 10.8 g/dL (12.0-15.5); LYMPH # 0.8 x10^3/uL (1.0-4.8); LYMPH % 11 % (24-48); MEAN CORPUSCULAR HEMOGLOBIN 27 pg (25-35); MEAN CORPUSCULAR HGB CONC 32 g/dL (31-37); MEAN CORPUSCULAR VOLUME 84 fL (79-100); MONO # 0.5 x10^3/uL (0.0-1.1); MONO % 7 % (0-9); NEUT # 5.7 x10^3/uL (1.8-7.7); NEUT % 79 % (31-73); PLATELET COUNT 587 x10^3/uL (140-400); RED BLOOD COUNT 4.04 x10^6/uL (3.50-5.40); RED CELL DISTRIBUTION WIDTH 16.4 % (11.5-14.5); WHITE BLOOD COUNT 7.3 x10^3/uL (4.0-11.0)
[2019-08-01 09:13] LABS: PROTHROMBIN TIME PATIENT 13.3 SEC (11.7-14.0)
[2019-08-01 09:22] VITALS: BP 140/64
[2019-08-01 09:30] VITALS: BP 143/84
[2019-08-01 09:45] VITALS: BP 122/58
[2019-08-01] MEDS ORDERED: ALBUMIN HUMAN 25% 100 ML IV ONE (10:00)
[2019-08-01 10:02] VITALS: BP 125/65
[2019-08-01 10:10] VITALS: BP 116/65
[2019-08-01 10:39] VITALS: BP 109/64
--- NOTE | 2019-08-01 10:53 | RAD ---
Ultrasound-guided paracentesis 08/01/2019 8:49 AM Procedure: The risks and benefits of the procedure were discussed the patient. Informed consent was obtained. A timeout procedure was performed. Sonographic evaluation of the abdomen was performed demonstrating ascites . The right lower quadrant was prepped and draped using maximum sterile barrier technique. 1% lidocaine without epinephrine was administered for local anesthesia. Real-time ultrasonographic guidance was used in passing a 5 Swedish Yueh catheter into the fluid collection. 5.4 L of serous ascites was removed. The catheter was removed and pressure held to achieve hemostasis. A sterile dressing was applied. Impression: Successful ultrasound-guided paracentesis
--- NOTE | 2019-08-01 11:00 | NUR ---
Discharge Note: FLACO CAVANAUGH Discharge instructions and discharge home medications reviewed with Patient and a copy given. All questions have been answered and understanding verbalized. The following instructions and handouts were given: Incision care and Paracentesis Discontinued lines and drains: Right FA IV dc'd, tip intact. Patient discharged to home with via car.
== END 2019-08-01 11:00 | disposition home or self-care (01) ==
LOC: INTRAD 08:43
PROVIDERS: ATTEND Internal Medicine Gastroenterology
DX: R18.8 Other ascites (principal); Z88.0 Allergy status to penicillin; Z79.899 Other long term (current) drug therapy
CPT/HCPCS: 36415; 49083; 85025; 85610; P9046

== ENCOUNTER 2019-08-08 08:49 | Outpatient (CLI) | payer MEDICARE ==
[~2019-08-08] VITALS: Ht 157.5 cm; Wt 63.1 kg
[2019-08-08 09:20] VITALS: BP 148/78
[2019-08-08 09:36] VITALS: BP 150/64
[2019-08-08] MEDS ORDERED: ALBUMIN HUMAN 25% 100 ML IV ONE ×2 (09:40→09:45)
[2019-08-08 10:15] VITALS: BP 131/93
--- NOTE | 2019-08-08 10:27 | RAD ---
Ultrasound-guided paracentesis 08/01/2019 8:49 AM Procedure: The risks and benefits of the procedure were discussed the patient. Informed consent was obtained. A timeout procedure was performed. Sonographic evaluation of the abdomen was performed demonstrating ascites . The right lower quadrant was prepped and draped using maximum sterile barrier technique. 1% lidocaine without epinephrine was administered for local anesthesia. Real-time ultrasonographic guidance was used in passing a 5 Lithuanian Yueh catheter into the fluid collection. 5.6 L of serous ascites was removed. The catheter was removed and pressure held to achieve hemostasis. A sterile dressing was applied. Impression: Successful ultrasound-guided paracentesis
[2019-08-08 10:29] VITALS: BP 113/70
[2019-08-08 11:00] VITALS: BP 118/62
== END 2019-08-08 11:08 | disposition home or self-care (01) ==
LOC: INTRAD 08:49
PROVIDERS: ATTEND Internal Medicine Gastroenterology
DX: R18.8 Other ascites (principal); Z88.0 Allergy status to penicillin
CPT/HCPCS: 49083; P9046

== ENCOUNTER 2019-08-15 08:14 | Outpatient (CLI) | payer MEDICARE ==
[~2019-08-15] VITALS: Ht 162.6 cm; Wt 64.1 kg
[2019-08-15 08:29] VITALS: BP 140/79
[2019-08-15 08:50] VITALS: BP 132/66
[2019-08-15 09:05] VITALS: BP 117/42
[2019-08-15] MEDS ORDERED: ALBUMIN HUMAN 25% 200 ML IV ONE (09:14)
[2019-08-15] MEDS ORDERED: ALBUMIN HUMAN 25% 100 ML IV ONE (09:30)
[2019-08-15 09:45] VITALS: BP 115/58
[2019-08-15 10:02] VITALS: BP 97/67
--- NOTE | 2019-08-15 10:15 | NUR ---
Discharge Note: FLACO CAVANAUGH Discharge instructions and discharge home medications reviewed with Patient and and a copy given. All questions have been answered and understanding verbalized. The following instructions and handouts were given: Paracentesis Discontinued lines and drains: left wrist IV dc'd with tip intact. Patient discharged to home with via truck.
--- NOTE | 2019-08-16 09:26 | RAD ---
Ultrasound-guided paracentesis 08/15/2019 Procedure: The risks and benefits of the procedure were discussed the patient. Informed consent was obtained. A timeout procedure was performed. Sonographic evaluation of the abdomen was performed demonstrating ascites . The right lower quadrant was prepped and draped using maximum sterile barrier technique. 1% lidocaine without epinephrine was administered for local anesthesia. Real-time ultrasonographic guidance was used in passing a 5 Nigerien Yueh catheter into the fluid collection. 5.4 L of serous ascites was removed. The catheter was removed and pressure held to achieve hemostasis. A sterile dressing was applied. Impression: Successful ultrasound-guided paracentesis
== END 2019-08-15 10:15 | disposition home or self-care (01) ==
LOC: INTRAD 08:14
PROVIDERS: ATTEND Internal Medicine Gastroenterology
DX: R18.8 Other ascites (principal)
CPT/HCPCS: 49083; P9046

== ENCOUNTER → 2019-08-22 | Outpatient (CLI) | payer MEDICARE ==
[~2019-08-22] VITALS: Ht 160 cm; Wt 63.3 kg
[~2019-08-22] MED LIST changes: +ALBUMIN HUMAN 25% 100 ML IV ONE; +ALBUMIN HUMAN 25% 50 ML IV ONE; +LIDOCAINE WITH 8.4% SOD BICARB 3 ML DISP.SYRIN. IJ ONE; +LIDOCAINE WITH 8.4% SOD BICARB 3 ML DISP.SYRIN. ONE
[2019-08-22 09:39] VITALS: BP 148/79
[2019-08-22 10:16] VITALS: BP 150/77
[2019-08-22 10:25] VITALS: BP 129/74
[2019-08-22 10:40] VITALS: BP 127/62
[2019-08-22 10:50] VITALS: BP 133/69
[2019-08-22 11:22] VITALS: BP 126/60
--- NOTE | 2019-08-22 11:24 | NUR ---
Discharge instructions and discharge home medications reviewed with Patient and a copy given. All questions have been answered and understanding verbalized. The following instructions and handouts were given on paracentesis. Discontinued PIV. Patient discharged to home with self care accompanied by .
--- NOTE | 2019-08-22 16:05 | RAD ---
Procedure: Ultrasound guided paracentesis Clinical Indication: Adult female with abdominal ascites Sedation: Local anesthesia only Antibiotics: None Fluoro Time: None Contrast: Not applicable Sterility: The procedure was performed in its entirety using appropriate elements of sterile technique. Consent: The procedure was explained in its entirety to the patient or the patients designated ambulatory service representative by a member of the treatment team, including a discussion of the risks, benefits and commonly accepted alternatives to the procedure, as well as the expected consequences of no therapy whatsoever. Discussion of the risks included, but was not limited to, those that are most frequent and those that are rare but possibly severe or life-threatening, as well as the possibility of unforeseen complications. Technique and Findings: Following informed consent, the patient was prepped and draped in the usual sterile fashion. Ultrasound interrogation of the abdomen revealed abdominal ascites. A hard copy ultrasound image was recorded. 1% Lidocaine was used to achieve local anesthesia over the area of interest, and a 6 Equatorial Guinean Jihm-Y-Okadwcdo catheter was advanced into the peritoneal cavity under ultrasound guidance. 5700 cc of thin yellow ascites was then withdrawn. The catheter was removed and hemostasis was achieved with manual compression. Complications: No immediate Impression: 1. Ultrasound-guided paracentesis as described
== END | disposition home or self-care (01) ==
LOC: INTRAD 08:51
PROVIDERS: ATTEND Internal Medicine Gastroenterology
DX: R18.8 Other ascites (principal); Z88.0 Allergy status to penicillin; Z79.899 Other long term (current) drug therapy
CPT/HCPCS: 49083; P9046

== ENCOUNTER 2019-08-26 08:09 | Outpatient (CLI) | payer MEDICARE ==
[~2019-08-26] VITALS: Ht 162.6 cm; Wt 65.3 kg
[2019-08-26] VITALS (7 sets, daily range): BP systolic 104–139; BP diastolic 58–87
[~2019-08-26 08:09] MED LIST changes: -ALBUMIN HUMAN 25% 100 ML IV ONE; -ALBUMIN HUMAN 25% 50 ML IV ONE; -LIDOCAINE WITH 8.4% SOD BICARB 3 ML DISP.SYRIN. IJ ONE; -LIDOCAINE WITH 8.4% SOD BICARB 3 ML DISP.SYRIN. ONE
[2019-08-26] MEDS ORDERED: LIDOCAINE WITH 8.4% SOD BICARB 3 ML DISP.SYRIN. ONE (08:57)
[2019-08-26] MEDS ORDERED: LIDOCAINE WITH 8.4% SOD BICARB 3 ML DISP.SYRIN. INJ ONE (09:00)
[2019-08-26] MEDS ORDERED: ALBUMIN HUMAN 25% 100 ML IV ONE ×2 (09:27→09:45)
--- NOTE | 2019-08-26 10:09 | NUR ---
Discharge Note: FLACO CAVANAUGH Discharge instructions and discharge home medications reviewed with Patient and a copy given. All questions have been answered and understanding verbalized. The following instructions and handouts were given: paracentesis Discontinued lines and drains: Peripheral IV intact. Patient discharged to Home or Self Care withFamily Membervia Wheelchair
--- NOTE | 2019-08-26 12:29 | RAD ---
Procedure: Ultrasound guided paracentesis Clinical Indication: Adult female requiring paracentesis for recurrent abdominal ascites Sedation: Local anesthesia only Antibiotics: None Fluoro Time: None Contrast: Not applicable Sterility: The procedure was performed in its entirety using appropriate elements of sterile technique. Consent: The procedure was explained in its entirety to the patient or the patients designated contact representative by a member of the treatment team, including a discussion of the risks, benefits and commonly accepted alternatives to the procedure, as well as the expected consequences of no therapy whatsoever. Discussion of the risks included, but was not limited to, those that are most frequent and those that are rare but possibly severe or life-threatening, as well as the possibility of unforeseen complications. Technique and Findings: Following informed consent, the patient was prepped and draped in the usual sterile fashion. Ultrasound interrogation of the abdomen revealed abdominal ascites. A hard copy ultrasound image was recorded. 1% Lidocaine was used to achieve local anesthesia over the area of interest, and a 6 German Gyyn-V-Zcpfcqwp catheter was advanced into the peritoneal cavity under ultrasound guidance. 4000 cc of thin yellow ascites was then withdrawn. The catheter was removed and hemostasis was achieved with manual compression. Complications: No immediate Impression: 1. Ultrasound-guided paracentesis as described
== END 2019-08-26 10:15 | disposition home or self-care (01) ==
LOC: INTRAD 08:09
PROVIDERS: ATTEND Internal Medicine Gastroenterology
DX: K74.60 Unspecified cirrhosis of liver (principal)
CPT/HCPCS: 49083; P9046

== ENCOUNTER 2019-09-02 08:26 | Outpatient (CLI) | payer MEDICARE ==
[~2019-09-02] VITALS: Ht 162.6 cm; Wt 54.4 kg
[2019-09-02 08:30] VITALS: BP 139/74
[2019-09-02] MEDS ORDERED: ALBUMIN HUMAN 25% 100 ML IV ONE ×3 (08:58→10:10)
[2019-09-02] MEDS ORDERED: LIDOCAINE WITH 8.4% SOD BICARB 3 ML DISP.SYRIN. ONE (08:59)
[2019-09-02 09:40] VITALS: BP 139/81
[2019-09-02] MEDS ORDERED: LIDOCAINE WITH 8.4% SOD BICARB 3 ML DISP.SYRIN. INJ ONE (09:45)
[2019-09-02 09:55] VITALS: BP 136/57
[2019-09-02] MEDS ORDERED: ALBUMIN HUMAN 25% 50 ML IV ONE (10:15)
[2019-09-02 10:19] VITALS: BP 118/71
[2019-09-02 10:45] VITALS: BP 127/73
--- NOTE | 2019-09-02 11:03 | NUR ---
pt discharged to home with family. PIV dcd
--- NOTE | 2019-09-02 18:06 | RAD ---
Procedure: Ultrasound guided paracentesis Clinical Indication: Adult female with recurrent ascites Sedation: Local anesthesia only Antibiotics: None Fluoro Time: None Contrast: Not applicable Sterility: The procedure was performed in its entirety using appropriate elements of sterile technique. Consent: The procedure was explained in its entirety to the patient or the patients designated community service representative by a member of the treatment team, including a discussion of the risks, benefits and commonly accepted alternatives to the procedure, as well as the expected consequences of no therapy whatsoever. Discussion of the risks included, but was not limited to, those that are most frequent and those that are rare but possibly severe or life-threatening, as well as the possibility of unforeseen complications. Technique and Findings: Following informed consent, the patient was prepped and draped in the usual sterile fashion. Ultrasound interrogation of the abdomen revealed abdominal ascites. A hard copy ultrasound image was recorded. 1% Lidocaine was used to achieve local anesthesia over the area of interest, and a 6 Iraqi Ewge-H-Qiebumzs catheter was advanced into the peritoneal cavity under ultrasound guidance. 5300 cc of thin yellow ascites was then withdrawn. The catheter was removed and hemostasis was achieved with manual compression. Complications: No immediate Impression: 1. Ultrasound-guided paracentesis as described
== END 2019-09-02 11:00 | disposition home or self-care (01) ==
LOC: INTRAD 08:26
PROVIDERS: ATTEND Internal Medicine Gastroenterology
DX: R18.8 Other ascites (principal)
CPT/HCPCS: 49083; J3490; P9046

== ENCOUNTER 2019-09-08 08:38 | Outpatient (CLI) | payer MEDICARE ==
[~2019-09-08] VITALS: Ht 162.6 cm; Wt 66.7 kg
[2019-09-08 09:04] VITALS: BP 129/68
[2019-09-08 09:16] LABS: BASO % 1 % (0-3); EOS # 0.1 x10^3/uL (0.0-0.7); EOS % 1 % (0-3); HEMATOCRIT 32.2 % (36.0-47.0); HEMOGLOBIN 10.5 g/dL (12.0-15.5); LYMPH # 0.7 x10^3/uL (1.0-4.8); LYMPH % 9 % (24-48); MEAN CORPUSCULAR HEMOGLOBIN 27 pg (25-35); MEAN CORPUSCULAR HGB CONC 33 g/dL (31-37); MEAN CORPUSCULAR VOLUME 82 fL (79-100); MONO # 0.5 x10^3/uL (0.0-1.1); MONO % 7 % (0-9); NEUT % 82 % (31-73); PLATELET COUNT 651 x10^3/uL (140-400); RED BLOOD COUNT 3.92 x10^6/uL (3.50-5.40); RED CELL DISTRIBUTION WIDTH 17.3 % (11.5-14.5); WHITE BLOOD COUNT 7.3 x10^3/uL (4.0-11.0)
[2019-09-08 09:25] LABS: CALCIUM 8.7 mg/dL (8.5-10.1); CREATININE 1.7 mg/dL (0.6-1.0); GFR 30.2; POTASSIUM 4.5 mmol/L (3.5-5.1); PROTHROMBIN TIME PATIENT 13.3 SEC (11.7-14.0)
[2019-09-08 09:30] LABS: ALBUMIN 2.4 g/dL (3.4-5.0); ALBUMIN/GLOBULIN RATIO 0.6 (1.0-1.7); TOTAL BILIRUBIN 0.2 mg/dL (0.2-1.0); TOTAL PROTEIN 6.3 g/dL (6.4-8.2)
[2019-09-08 09:46] VITALS: BP 137/72
[2019-09-08 10:01] VITALS: BP 125/61
[2019-09-08] MEDS ORDERED: ALBUMIN HUMAN 25% 100 ML IV ONE ×4 (10:01→10:15)
[2019-09-08 10:17] VITALS: BP 116/58
--- NOTE | 2019-09-14 12:41 | RAD ---
Ultrasound-guided 3.11.22 Procedure: The risks and benefits of the procedure were discussed the patient. Informed consent was obtained. A timeout procedure was performed. Sonographic evaluation of the abdomen was performed demonstrating ascites . The right lower quadrant was prepped and draped using maximum sterile barrier technique. 1% lidocaine without epinephrine was administered for local anesthesia. Real-time ultrasonographic guidance was used in passing a 5 Maltese Yueh catheter into the fluid collection. 5. L of serous ascites was removed. The catheter was removed and pressure held to achieve hemostasis. A sterile dressing was applied. Impression: Successful ultrasound-guided paracentesis
== END 2019-09-08 11:00 | disposition home or self-care (01) ==
LOC: INTRAD 08:38
PROVIDERS: ATTEND Internal Medicine Gastroenterology
DX: R18.8 Other ascites (principal); Z79.899 Other long term (current) drug therapy; Z79.01 Long term (current) use of anticoagulants
CPT/HCPCS: 36415; 49083; 80053; 85025; 85610; 85730; P9046

== ENCOUNTER 2019-09-16 10:01 | Outpatient (CLI) | payer MEDICARE ==
[2019-09-16] VITALS (8 sets, daily range): BP systolic 104–146; BP diastolic 53–86
[~2019-09-16] VITALS: Ht 162.6 cm; Wt 63.5 kg
[2019-09-16] MEDS ORDERED: LIDOCAINE WITH 8.4% SOD BICARB 3 ML DISP.SYRIN. ONE (11:00)
[2019-09-16] MEDS ORDERED: LIDOCAINE WITH 8.4% SOD BICARB 3 ML DISP.SYRIN. INJ ONE (11:15)
[2019-09-16] MEDS ORDERED: ALBUMIN HUMAN 25% 200 ML IV ONE (11:22)
[2019-09-16] MEDS ORDERED: ALBUMIN HUMAN 25% 50 ML IV ONE (11:45)
[2019-09-16] MEDS ORDERED: ALBUMIN HUMAN 25% 100 ML IV ONE (11:45)
--- NOTE | 2019-09-16 14:37 | RAD ---
Ultrasound-guided 09.16.19 Procedure: The risks and benefits of the procedure were discussed the patient. Informed consent was obtained. A timeout procedure was performed. Sonographic evaluation of the abdomen was performed demonstrating ascites . The right lower quadrant was prepped and draped using maximum sterile barrier technique. 1% lidocaine without epinephrine was administered for local anesthesia. Real-time ultrasonographic guidance was used in passing a 5 Palauan Yueh catheter into the fluid collection. 5.3 L of serous ascites was removed. The catheter was removed and pressure held to achieve hemostasis. A sterile dressing was applied. Impression: Successful ultrasound-guided paracentesis
== END 2019-09-16 13:00 | disposition home or self-care (01) ==
LOC: INTRAD 10:01
PROVIDERS: ATTEND Internal Medicine Gastroenterology
DX: R18.8 Other ascites (principal)
CPT/HCPCS: 49083; J3490; P9046

== ENCOUNTER 2019-09-23 08:44 | Outpatient (CLI) | payer MEDICARE ==
[~2019-09-23] VITALS: Ht 162.6 cm; Wt 63.5 kg
[2019-09-23 09:25] VITALS: BP 121/72
[2019-09-23] MEDS ORDERED: LIDOCAINE WITH 8.4% SOD BICARB 3 ML DISP.SYRIN. ONE (09:42)
[2019-09-23 09:45] VITALS: BP 138/71
[2019-09-23] MEDS ORDERED: ALBUMIN HUMAN 25% 100 ML IV ONE ×3 (09:45→10:21)
[2019-09-23 10:00] VITALS: BP 133/70
[2019-09-23] MEDS ORDERED: LIDOCAINE WITH 8.4% SOD BICARB 3 ML DISP.SYRIN. INJ ONE (10:15)
[2019-09-23 10:30] VITALS: BP 125/68
--- NOTE | 2019-09-23 10:47 | RAD ---
Ultrasound-guided paracentesis 09/23/2019 Procedure: The risks and benefits of the procedure were discussed the patient. Informed consent was obtained. A timeout procedure was performed. Sonographic evaluation of the abdomen was performed demonstrating ascites . The right lower quadrant was prepped and draped using maximum sterile barrier technique. 1% lidocaine without epinephrine was administered for local anesthesia. Real-time ultrasonographic guidance was used in passing a 5 Spanish Yueh catheter into the fluid collection. 5 L of serous ascites was removed. The catheter was removed and pressure held to achieve hemostasis. A sterile dressing was applied. Impression: Successful ultrasound-guided paracentesis
[2019-09-23 11:00] VITALS: BP 120/69
[2019-09-23] MEDS ORDERED: ALBUMIN HUMAN 25% 50 ML IV ONE (11:00)
== END 2019-09-23 11:00 | disposition home or self-care (01) ==
LOC: INTRAD 08:44
PROVIDERS: ATTEND Internal Medicine Gastroenterology
DX: R18.8 Other ascites (principal)
CPT/HCPCS: 49083; C1892; J3490; P9046

== ENCOUNTER 2019-09-30 09:07 | Outpatient (CLI) | payer MEDICARE ==
[~2019-09-30] VITALS: Ht 162.6 cm; Wt 58.7 kg
[2019-09-30] MEDS ORDERED: LIDOCAINE WITH 8.4% SOD BICARB 3 ML DISP.SYRIN. ONE (09:16)
[2019-09-30 09:31] VITALS: BP 135/74
[2019-09-30] MEDS ORDERED: ALBUMIN HUMAN 25% 100 ML IV ONE ×3 (09:51→10:00)
[2019-09-30 10:00] VITALS: BP 124/74
[2019-09-30] MEDS ORDERED: LIDOCAINE WITH 8.4% SOD BICARB 3 ML DISP.SYRIN. INJ ONE (10:00)
[2019-09-30 10:11] VITALS: BP 127/63
[2019-09-30] MEDS ORDERED: ALBUMIN HUMAN 25% 50 ML IV ONE (10:15)
[2019-09-30 10:18] VITALS: BP 124/63
[2019-09-30 10:35] VITALS: BP 124/58
--- NOTE | 2019-10-04 10:40 | RAD ---
Ultrasound-guided paracentesis September 30, 2019 Procedure: The risks and benefits of the procedure were discussed the patient. Informed consent was obtained. A timeout procedure was performed. Sonographic evaluation of the abdomen was performed demonstrating ascites . The right lower quadrant was prepped and draped using maximum sterile barrier technique. 1% lidocaine without epinephrine was administered for local anesthesia. Real-time ultrasonographic guidance was used in passing a 5 Salvadorean Yueh catheter into the fluid collection. 4.7 L of serous ascites was removed. The catheter was removed and pressure held to achieve hemostasis. A sterile dressing was applied. Impression: Successful ultrasound-guided paracentesis 4.7
== END 2019-09-30 11:05 | disposition home or self-care (01) ==
LOC: INTRAD 09:07
PROVIDERS: ATTEND Internal Medicine Gastroenterology
DX: R18.8 Other ascites (principal); Z88.0 Allergy status to penicillin; Z79.899 Other long term (current) drug therapy
CPT/HCPCS: 49083; C1892; J3490; P9046

== ENCOUNTER 2019-10-07 09:14 | Outpatient (CLI) | payer MEDICARE ==
[~2019-10-07] VITALS: Ht 162.6 cm; Wt 57.6 kg
[2019-10-07 09:30] VITALS: BP 126/83
[2019-10-07] MEDS ORDERED: LIDOCAINE WITH 8.4% SOD BICARB 3 ML DISP.SYRIN. ONE (09:37)
[2019-10-07 09:50] VITALS: BP 141/79
[2019-10-07] MEDS: LIDOCAINE WITH 8.4% SOD BICARB 3 ML DISP.SYRIN. IJ ONE (10:00)
[2019-10-07] MEDS ORDERED: ALBUMIN HUMAN 25% 200 ML IV ONE (10:02)
[2019-10-07 10:05] VITALS: BP 157/58
[2019-10-07] MEDS: ALBUMIN HUMAN 25% 100 ML IV ONE (10:10)
[2019-10-07] MEDS: ALBUMIN HUMAN 25% 50 ML IV ONE (10:14)
[2019-10-07 10:20] VITALS: BP 130/72
[2019-10-07 10:35] VITALS: BP 116/71
[2019-10-07 10:50] VITALS: BP 114/62
--- NOTE | 2019-10-07 11:06 | RAD ---
Ultrasound-guided paracentesis 10/07/2019 9:02 AM Procedure: The risks and benefits of the procedure were discussed the patient. Informed consent was obtained. A timeout procedure was performed. Sonographic evaluation of the abdomen was performed demonstrating ascites . The right lower quadrant was prepped and draped using maximum sterile barrier technique. 1% lidocaine without epinephrine was administered for local anesthesia. Real-time ultrasonographic guidance was used in passing a 5 Yoruba Yueh catheter into the fluid collection. 4.4 L of serous ascites was removed. The catheter was removed and pressure held to achieve hemostasis. A sterile dressing was applied. Impression: Successful ultrasound-guided paracentesis
== END 2019-10-07 11:05 | disposition home or self-care (01) ==
LOC: INTRAD 09:14
PROVIDERS: ATTEND Internal Medicine Gastroenterology
DX: R18.8 Other ascites (principal)
CPT/HCPCS: 49083; C1892; J3490; P9046

== ENCOUNTER 2019-10-14 08:59 | Outpatient (CLI) | payer MEDICARE ==
[~2019-10-14] VITALS: Ht 162.6 cm; Wt 55.5 kg
[2019-10-14 09:36] VITALS: BP 164/85
[2019-10-14] MEDS ORDERED: ONDANSETRON PF 4 MG/2 ML VIAL. ONE (09:57)
[2019-10-14 10:03] LABS: BASO # 0.1 x10^3/uL (0.0-0.2); BASO % 1 % (0-3); EOS % 0 % (0-3); HEMATOCRIT 33.8 % (36.0-47.0); LYMPH # 0.6 x10^3/uL (1.0-4.8); LYMPH % 6 % (24-48); MEAN CORPUSCULAR HEMOGLOBIN 26 pg (25-35); MEAN CORPUSCULAR HGB CONC 33 g/dL (31-37); MEAN CORPUSCULAR VOLUME 81 fL (79-100); MONO # 0.5 x10^3/uL (0.0-1.1); MONO % 4 % (0-9); NEUT # 9.3 x10^3/uL (1.8-7.7); NEUT % 89 % (31-73); PLATELET COUNT 775 x10^3/uL (140-400); RED CELL DISTRIBUTION WIDTH 16.9 % (11.5-14.5); WHITE BLOOD COUNT 10.4 x10^3/uL (4.0-11.0)
[2019-10-14 10:13] LABS: PROTHROMBIN TIME PATIENT 13.4 SEC (11.7-14.0)
[2019-10-14] MEDS ORDERED: IV NORMAL SALINE 250ML 250 ML IV ONE (10:15)
[2019-10-14] MEDS ORDERED: ONDANSETRON PF 4 MG/2 ML VIAL. IVP ONE (10:15)
[2019-10-14] MEDS ORDERED: LIDOCAINE WITH 8.4% SOD BICARB 3 ML DISP.SYRIN. ONE (10:34)
[2019-10-14 10:43] VITALS: BP 136/78
[2019-10-14 10:58] VITALS: BP 144/81
[2019-10-14] MEDS ORDERED: ALBUMIN HUMAN 25% 100 ML IV ONE ×2 (11:00→11:04)
[2019-10-14 11:10] VITALS: BP 137/80
[2019-10-14 11:15] LABS: % LYMPHS 9 % (24-48); % MONOS 4 % (0-10); % SEGS 87 % (35-66); PLT ESTIMATE INCREASED (ADEQUATE)
[2019-10-14] MEDS ORDERED: LIDOCAINE WITH 8.4% SOD BICARB 3 ML DISP.SYRIN. INJ ONE (11:15)
[2019-10-14] MEDS ORDERED: ALBUMIN HUMAN 25% 50 ML IV ONE (11:15)
[2019-10-14 11:17] LABS: HYPOCHROMIA SLIGHT
[2019-10-14 11:18] LABS: ANISOCYTOSIS SLIGHT; POIKILOCYTOSIS SLIGHT
[2019-10-14 11:20] LABS: MICROCYTOSIS PRESENT; OVALOCYTES PRESENT; SCHISTOCYTES OCC
[2019-10-14 11:25] VITALS: BP 127/63
[2019-10-14] MEDS ORDERED: ONDA4TAB12 PO (11:35)
[2019-10-14 11:40] VITALS: BP 117/69
== END 2019-10-14 12:10 | disposition home or self-care (01) ==
LOC: INTRAD 08:59
PROVIDERS: ATTEND Internal Medicine Gastroenterology
DX: K74.60 Unspecified cirrhosis of liver (principal); Z88.0 Allergy status to penicillin
CPT/HCPCS: 36415; 49083; 85025; 85610; 85730; C1892; J2405; J3490; J7050; P9046; 85007; J7030

== ENCOUNTER 2019-10-21 09:57 | Outpatient (CLI) | payer MEDICARE ==
[~2019-10-21] VITALS: Ht 162.6 cm; Wt 51.3 kg
[~2019-10-21 09:57] MED LIST changes: +ONDA4TAB12 PO
[2019-10-21 10:33] VITALS: BP 149/84
[2019-10-21] MEDS ORDERED: OMEP20CA16 PO (10:38)
[2019-10-21] MEDS ORDERED: ONDANSETRON PF 4 MG/2 ML VIAL. ONE (10:41)
[2019-10-21] MEDS ORDERED: ONDANSETRON PF 4 MG/2 ML VIAL. IVP ONE (10:45)
[2019-10-21] MEDS ORDERED: IV NORMAL SALINE 500ML BAG 500 ML IV ONE (10:45)
[2019-10-21] MEDS ORDERED: LIDOCAINE WITH 8.4% SOD BICARB 3 ML DISP.SYRIN. ONE (11:06)
[2019-10-21 11:25] VITALS: BP 138/78
[2019-10-21 11:40] VITALS: BP 138/67
[2019-10-21] MEDS ORDERED: LIDOCAINE WITH 8.4% SOD BICARB 3 ML DISP.SYRIN. IJ ONE (11:45)
[2019-10-21] MEDS ORDERED: ALBUMIN HUMAN 25% 100 ML IV ONE ×2 (11:50→12:00)
[2019-10-21 11:55] VITALS: BP 143/60
[2019-10-21 12:09] VITALS: BP 111/45
--- NOTE | 2019-10-21 12:17 | RAD ---
Procedure: Ultrasound guided paracentesis. Indication: Recurrent ascites The procedure, risks, and complications, to include damage to hollow and solid abdominal viscera, bleeding, peritonitis and infection were explained to the patient and they understood same and wished to proceed. Consent form signed. The right upper quadrant was prepped and draped using maximal sterile technique and 1% Xylocaine used for local anesthesia. Ultrasound-guided paracentesis: Under ultrasound guidance, a small to moderate pocket of fluid was identified and a 5 Gabonese one-step needle was inserted into the fluid and 3200 cc of clear, straw-colored fluid was removed. The catheter was removed and pressure placed. An ultrasound image was saved and sent to PACS. The patient tolerated the procedure well and remained in stable condition. IMPRESSION: Ultrasound-guided paracentesis. Of note, patient has been experiencing progressive nausea and intermittent vomiting. She received a normal saline IV bolus as well as IV Zofran while in the ER department, but was encouraged to follow up with her GI doctor/primary care physician due to the progression of symptoms. The discussion was made about the possibility of sending the patient to the ER instead of home, but patient did feel that she could manage the symptoms as an outpatient. Strict ER returned precautions were given.
--- NOTE | 2019-10-21 12:36 | NUR ---
Discharge Note: FLACO CAVANAUGH Discharge instructions and discharge home medications reviewed with [employer] and a copy given. All questions have been answered and understanding verbalized. The following instructions and handouts were given: paracentesis IV left in right antecubital site. Patient discharged to Home or Self Care withBrianda Khouryer (discharged from outpatient status). Patient and spouse were escorted to ER for further evaluation since patient cannot keep any food or water in her system. Patient has lost 12 pounds since last thursday. 3200 cc of fluid drained from her abdomen (RLQ) today and patient received one bottle of albumin. Prior to paracentesis patient received 4mg Zofran IV and 500cc fluid bolus.
== END 2019-10-21 12:25 | disposition home or self-care (01) ==
LOC: INTRAD 09:57
PROVIDERS: ATTEND Internal Medicine Gastroenterology
DX: R18.8 Other ascites (principal); Z88.8 Allergy status to other drugs, medicaments and biological substances
CPT/HCPCS: 49083; C1892; J2405; J3490; J7040; P9046

== ENCOUNTER 2019-11-04 12:15 | Outpatient (CLI) | payer MEDICARE ==
[~2019-11-04] VITALS: Ht 162.6 cm; Wt 61.7 kg
[~2019-11-04 12:15] MED LIST changes: +CIPR250T30 PO; +FERR325T72 PO; +OMEP20CA16 PO
[2019-11-04 12:32] VITALS: BP 97/65
[2019-11-04] MEDS ORDERED: LIDOCAINE WITH 8.4% SOD BICARB 3 ML DISP.SYRIN. ONE (12:36)
[2019-11-04 12:55] VITALS: BP 119/69
[2019-11-04] MEDS: LIDOCAINE WITH 8.4% SOD BICARB 3 ML DISP.SYRIN. INJ ONE (13:00)
[2019-11-04 13:10] VITALS: BP 107/64
[2019-11-04] MEDS ORDERED: ALBUMIN HUMAN 25% 100 ML IV ONE ×2 (13:10→13:33)
[2019-11-04] MEDS: ALBUMIN HUMAN 25% 100 ML IV ONE (13:15)
[2019-11-04 13:40] VITALS: BP 102/61
[2019-11-04] MEDS: ALBUMIN HUMAN 25% 50 ML IV ONE (13:45)
[2019-11-04 14:05] VITALS: BP 101/59
--- NOTE | 2019-11-04 14:11 | RAD ---
Ultrasound-guided paracentesis 11/04/2019 12:07 PM Procedure: The risks and benefits of the procedure were discussed the patient. Informed consent was obtained. A timeout procedure was performed. Sonographic evaluation of the abdomen was performed demonstrating ascites . The right lower quadrant was prepped and draped using maximum sterile barrier technique. 1% lidocaine without epinephrine was administered for local anesthesia. Real-time ultrasonographic guidance was used in passing a 5 Romanian Yueh catheter into the fluid collection. 4 L of serous ascites was removed. The catheter was removed and pressure held to achieve hemostasis. A sterile dressing was applied. Impression: Successful ultrasound-guided paracentesis
== END 2019-11-04 14:40 | disposition home or self-care (01) ==
LOC: INTRAD 12:15
PROVIDERS: ATTEND Internal Medicine Gastroenterology
DX: R18.8 Other ascites (principal)
CPT/HCPCS: 49083; C1892; J3490; P9046

== ENCOUNTER 2019-11-11 08:42 | Outpatient (CLI) | payer MEDICARE ==
[~2019-11-11] VITALS: Ht 162.6 cm; Wt 59.4 kg
[2019-11-11 09:10] VITALS: BP 115/73
[2019-11-11] MEDS ORDERED: ALBUMIN HUMAN 25% 100 ML IV ONE ×4 (09:16→12:00)
[2019-11-11] MEDS ORDERED: LIDOCAINE WITH 8.4% SOD BICARB 3 ML DISP.SYRIN. ONE (09:16)
[2019-11-11 09:30] VITALS: BP 114/69
[2019-11-11] MEDS ORDERED: LIDOCAINE WITH 8.4% SOD BICARB 3 ML DISP.SYRIN. INJ ONE (09:30)
[2019-11-11 09:45] VITALS: BP 94/61
[2019-11-11 10:45] VITALS: BP 103/69
[2019-11-11 11:09] VITALS: BP 107/65
[2019-11-11 12:15] VITALS: BP 106/62
--- NOTE | 2019-11-11 12:36 | NUR ---
pt A&O x 3. denies pain or nausea. rt abd dressing is dry and intact. VSS. tolerating po well. ambulated to BR w/o problem. d/c instructions reviewed. out to vehicle per w/c- her to drive her home
--- NOTE | 2019-11-11 15:24 | RAD ---
Procedure: Ultrasound guided paracentesis Clinical Indication: Adult female with recurrent abdominal ascites Sedation: Local anesthesia only Antibiotics: None Fluoro Time: None Contrast: Not applicable Sterility: The procedure was performed in its entirety using appropriate elements of sterile technique. Consent: The procedure was explained in its entirety to the patient or the patients designated billing customer service representative by a member of the treatment team, including a discussion of the risks, benefits and commonly accepted alternatives to the procedure, as well as the expected consequences of no therapy whatsoever. Discussion of the risks included, but was not limited to, those that are most frequent and those that are rare but possibly severe or life-threatening, as well as the possibility of unforeseen complications. Technique and Findings: Following informed consent, the patient was prepped and draped in the usual sterile fashion. Ultrasound interrogation of the abdomen revealed abdominal ascites. A hard copy ultrasound image was recorded. 1% Lidocaine was used to achieve local anesthesia over the area of interest, and a 6 Albanian Pfek-S-Rqrtegec catheter was advanced into the peritoneal cavity under ultrasound guidance. 4000 cc of thin yellow ascites was then withdrawn. The catheter was removed and hemostasis was achieved with manual compression. Complications: No immediate Impression: 1. Ultrasound-guided paracentesis as described
== END 2019-11-11 12:38 | disposition home or self-care (01) ==
LOC: INTRAD 08:42
PROVIDERS: ATTEND Internal Medicine Gastroenterology
DX: R18.8 Other ascites (principal); Z88.0 Allergy status to penicillin
CPT/HCPCS: 49083; C1892; J3490; P9046

== ENCOUNTER 2019-11-18 08:53 | Outpatient (CLI) | payer MEDICARE ==
[~2019-11-18] VITALS: Ht 162.6 cm; Wt 57.6 kg
[2019-11-18 09:31] VITALS: BP 135/79
[2019-11-18] MEDS ORDERED: LIDOCAINE WITH 8.4% SOD BICARB 3 ML DISP.SYRIN. ONE (09:37)
[2019-11-18] MEDS ORDERED: LIDOCAINE WITH 8.4% SOD BICARB 3 ML DISP.SYRIN. INJ ONE (09:45)
[2019-11-18 09:48] VITALS: BP 131/74
[2019-11-18] MEDS ORDERED: ALBUMIN HUMAN 25% 200 ML IV ONE (09:51)
[2019-11-18] MEDS ORDERED: ALBUMIN HUMAN 25% 100 ML IV ONE (10:00)
[2019-11-18] MEDS ORDERED: ALBUMIN HUMAN 25% 50 ML IV ONE (10:00)
[2019-11-18 10:10] VITALS: BP 116/71
[2019-11-18 10:25] VITALS: BP 109/64
[2019-11-18 10:58] VITALS: BP 109/62
--- NOTE | 2019-11-18 11:01 | NUR ---
Pt A&O x4. dressing on RLQ is clean and dry. pt tolerating po well. VSS. ambulated to BR w/o problem. D/c instructions reviewed. out to vehicle per w/c- pt's to drive her home
--- NOTE | 2019-11-21 12:49 | RAD ---
Ultrasound-guided paracentesis 11/21/2019 10:46 AM Procedure: The risks and benefits of the procedure were discussed the patient. Informed consent was obtained. A timeout procedure was performed. Sonographic evaluation of the abdomen was performed demonstrating ascites . The right lower quadrant was prepped and draped using maximum sterile barrier technique. 1% lidocaine without epinephrine was administered for local anesthesia. Real-time ultrasonographic guidance was used in passing a 5 Stateless Yueh catheter into the fluid collection. 4 L of serous ascites was removed. The catheter was removed and pressure held to achieve hemostasis. A sterile dressing was applied. Impression: Successful ultrasound-guided paracentesis
== END 2019-11-18 11:10 | disposition home or self-care (01) ==
LOC: INTRAD 08:53
PROVIDERS: ATTEND Internal Medicine Gastroenterology
DX: R18.8 Other ascites (principal); Z88.0 Allergy status to penicillin
CPT/HCPCS: 49083; C1892; J3490; P9046

== ENCOUNTER 2019-11-25 08:40 | Outpatient (CLI) | payer MEDICARE ==
[~2019-11-25] VITALS: Ht 154.9 cm; Wt 55.6 kg
[2019-11-25 09:33] VITALS: BP 118/65
[2019-11-25] MEDS ORDERED: LIDOCAINE WITH 8.4% SOD BICARB 3 ML DISP.SYRIN. ONE (09:38)
[2019-11-25] MEDS ORDERED: LIDOCAINE WITH 8.4% SOD BICARB 3 ML DISP.SYRIN. INJ ONE (09:45)
[2019-11-25 09:55] VITALS: BP 132/64
[2019-11-25] MEDS ORDERED: ALBUMIN HUMAN 25% 200 ML IV ONE (09:55)
[2019-11-25] MEDS ORDERED: ALBUMIN HUMAN 25% 100 ML IV ONE (10:00)
[2019-11-25 10:11] VITALS: BP 120/56
[2019-11-25 10:35] VITALS: BP 110/73
[2019-11-25 10:55] VITALS: BP 104/55
--- NOTE | 2019-11-25 11:10 | NUR ---
Discharge Note: FLACO CAVANAUGH Discharge instructions and discharge home medications reviewed with Patient and and a copy given. All questions have been answered and understanding verbalized. The following instructions and handouts were given: Paracentesis Discontinued lines and drains: Left hand IV DC'D tip intact. Patient discharged to home with via car.
--- NOTE | 2019-11-25 16:27 | RAD ---
Ultrasound-guided paracentesis 11/25/2019 2:23 PM Procedure: The risks and benefits of the procedure were discussed the patient. Informed consent was obtained. A timeout procedure was performed. Sonographic evaluation of the abdomen was performed demonstrating ascites . The right lower quadrant was prepped and draped using maximum sterile barrier technique. 1% lidocaine without epinephrine was administered for local anesthesia. Real-time ultrasonographic guidance was used in passing a 5 Greenlandic Yueh catheter into the fluid collection. 3.1 L of serous ascites was removed. The catheter was removed and pressure held to achieve hemostasis. A sterile dressing was applied. Impression: Successful ultrasound-guided paracentesis
== END 2019-11-25 11:10 | disposition home or self-care (01) ==
LOC: INTRAD 08:40
PROVIDERS: ATTEND Internal Medicine Gastroenterology
DX: R18.8 Other ascites (principal)
CPT/HCPCS: 49083; C1892; J3490; P9046

== ENCOUNTER 2019-12-02 10:05 | Outpatient (CLI) | payer MEDICARE ==
[~2019-12-02] VITALS: Ht 162.6 cm; Wt 54.9 kg
[2019-12-02] MEDS ORDERED: LIDOCAINE WITH 8.4% SOD BICARB 3 ML DISP.SYRIN. ONE (10:14)
[2019-12-02 10:45] VITALS: BP 119/74
[2019-12-02] MEDS ORDERED: LIDOCAINE WITH 8.4% SOD BICARB 3 ML DISP.SYRIN. INJ ONE (10:45)
[2019-12-02 11:05] VITALS: BP 119/63
--- NOTE | 2019-12-02 11:17 | NUR ---
Discharge Note: FLACO CAVANAUGH Discharge instructions and discharge home medications reviewed with Patient and a copy given. All questions have been answered and understanding verbalized. The following instructions and handouts were given: Paracentesis and incisional care Discontinued lines and drains: Right arm IV dc'd and tip intact. Patient discharged to home with via Personal vehicle.
--- NOTE | 2019-12-02 16:38 | RAD ---
Ultrasound-guided paracentesis 12/02/2019 2:34 PM Procedure: The risks and benefits of the procedure were discussed the patient. Informed consent was obtained. A timeout procedure was performed. Sonographic evaluation of the abdomen was performed demonstrating ascites . The right lower quadrant was prepped and draped using maximum sterile barrier technique. 1% lidocaine without epinephrine was administered for local anesthesia. Real-time ultrasonographic guidance was used in passing a 5 Slovak Yueh catheter into the fluid collection. 2.3 L of serous ascites was removed. The catheter was removed and pressure held to achieve hemostasis. A sterile dressing was applied. Impression: Successful ultrasound-guided paracentesis
== END 2019-12-02 11:24 | disposition home or self-care (01) ==
LOC: INTRAD 10:05
PROVIDERS: ATTEND Internal Medicine Gastroenterology
DX: R18.8 Other ascites (principal)
CPT/HCPCS: 49083; C1892; J3490

== ENCOUNTER 2019-12-09 08:34 | Outpatient (CLI) | payer MEDICARE ==
[~2019-12-09] VITALS: Ht 162.6 cm; Wt 55.3 kg
[~2019-12-09 08:34] MED LIST changes: +MULT-445 PO; -MULT1TAB52 PO
[2019-12-09] MEDS ORDERED: LIDOCAINE WITH 8.4% SOD BICARB 3 ML DISP.SYRIN. ONE (09:02)
[2019-12-09 09:17] VITALS: BP 116/72
[2019-12-09] MEDS ORDERED: ALBUMIN HUMAN 25% 100 ML IV ONE (09:30)
[2019-12-09] MEDS ORDERED: LIDOCAINE WITH 8.4% SOD BICARB 3 ML DISP.SYRIN. IJ ONE (09:30)
[2019-12-09 09:45] VITALS: BP 127/72
[2019-12-09 10:00] VITALS: BP 125/76
[2019-12-09] MEDS ORDERED: SPIR50TA4 PO ×2 (10:21→10:25)
--- NOTE | 2019-12-09 10:30 | NUR ---
pt A&O x4. denies pain or nausea. pt abd site dressing dry & intact. pt tolerating po well. ambulated to BR w/ SBA w/o problem. reviewed d/c instructions. pt out to vehicle per w/c- to drive her home
--- NOTE | 2019-12-12 08:09 | RAD ---
Ultrasound-guided paracentesis December 09, 2019 Procedure: The risks and benefits of the procedure were discussed the patient. Informed consent was obtained. A timeout procedure was performed. Sonographic evaluation of the abdomen was performed demonstrating ascites . The right lower quadrant was prepped and draped using maximum sterile barrier technique. 1% lidocaine without epinephrine was administered for local anesthesia. Real-time ultrasonographic guidance was used in passing a 5 Maori Yueh catheter into the fluid collection. 2 L of serous ascites was removed. Samples of fluid were saved for further evaluation per ordering physician request. The catheter was removed and pressure held to achieve hemostasis. A sterile dressing was applied. Impression: Successful ultrasound-guided paracentesis
== END 2019-12-09 10:30 | disposition home or self-care (01) ==
LOC: INTRAD 08:34
PROVIDERS: ATTEND Internal Medicine Gastroenterology
DX: R18.8 Other ascites (principal)
CPT/HCPCS: 49083; C1892; J3490; P9046

== ENCOUNTER 2019-12-16 10:06 | Outpatient (CLI) | payer MEDICARE ==
[~2019-12-16] VITALS: Ht 162.6 cm; Wt 56.7 kg
[~2019-12-16 10:06] MED LIST changes: +SPIR50TA4 PO
[2019-12-16 10:36] VITALS: BP 124/63
[2019-12-16 10:53] LABS: PROTHROMBIN TIME PATIENT 15.2 SEC (11.7-14.0)
[2019-12-16 11:09] VITALS: BP 133/67
[2019-12-16] MEDS ORDERED: LIDOCAINE WITH 8.4% SOD BICARB 3 ML DISP.SYRIN. ONE ×2 (11:09→11:15)
[2019-12-16] MEDS ORDERED: LIDOCAINE WITH 8.4% SOD BICARB 3 ML DISP.SYRIN. INJ ONE (11:15)
[2019-12-16] MEDS ORDERED: ALBUMIN HUMAN 25% 100 ML IV ONE (11:24)
[2019-12-16] MEDS ORDERED: ALBUMIN HUMAN 25% 50 ML IV ONE (11:30)
[2019-12-16 11:34] VITALS: BP 116/65
[2019-12-16 11:50] VITALS: BP 123/67
--- NOTE | 2019-12-19 15:30 | RAD ---
Ultrasound-guided paracentesis 12/19/2019 1:24 PM Procedure: The risks and benefits of the procedure were discussed the patient. Informed consent was obtained. A timeout procedure was performed. Sonographic evaluation of the abdomen was performed demonstrating ascites . The right lower quadrant was prepped and draped using maximum sterile barrier technique. 1% lidocaine without epinephrine was administered for local anesthesia. Real-time ultrasonographic guidance was used in passing a 5 Nepali Yueh catheter into the fluid collection. 2 L of serous ascites was removed. The catheter was removed and pressure held to achieve hemostasis. A sterile dressing was applied. Impression: Successful ultrasound-guided paracentesis
== END 2019-12-16 12:23 | disposition home or self-care (01) ==
LOC: INTRAD 10:06
PROVIDERS: ATTEND Internal Medicine Gastroenterology
DX: R18.8 Other ascites (principal); Z79.899 Other long term (current) drug therapy; Z79.01 Long term (current) use of anticoagulants
CPT/HCPCS: 36415; 49083; 85610; 85730; C1892; J3490; P9046

== ENCOUNTER 2019-12-23 08:34 | Outpatient (CLI) | payer MEDICARE ==
[~2019-12-23] VITALS: Ht 160 cm; Wt 57.2 kg
[2019-12-23 09:03] VITALS: BP 113/65
[2019-12-23] MEDS ORDERED: FURO40TA4 PO (09:03)
[2019-12-23] MEDS ORDERED: LIDOCAINE WITH 8.4% SOD BICARB 3 ML DISP.SYRIN. ONE (09:09)
[2019-12-23 09:22] VITALS: BP 128/67
[2019-12-23] MEDS ORDERED: LIDOCAINE WITH 8.4% SOD BICARB 3 ML DISP.SYRIN. INJ ONE (09:30)
[2019-12-23 09:45] VITALS: BP 115/65
--- NOTE | 2019-12-23 15:36 | RAD ---
Ultrasound-guided paracentesis 12/23/2019 1:33 PM Procedure: The risks and benefits of the procedure were discussed the patient. Informed consent was obtained. A timeout procedure was performed. Sonographic evaluation of the abdomen was performed demonstrating ascites . The right lower quadrant was prepped and draped using maximum sterile barrier technique. 1% lidocaine without epinephrine was administered for local anesthesia. Real-time ultrasonographic guidance was used in passing a 5 English Yueh catheter into the fluid collection. 1.8 L of serous ascites was removed. Samples of fluid were saved for further evaluation per ordering physician request. The catheter was removed and pressure held to achieve hemostasis. A sterile dressing was applied. Impression: Successful ultrasound-guided paracentesis
== END 2019-12-23 10:15 | disposition home or self-care (01) ==
LOC: INTRAD 08:34
PROVIDERS: ATTEND Internal Medicine Gastroenterology
DX: R18.8 Other ascites (principal); K74.60 Unspecified cirrhosis of liver; I12.9 Hypertensive chronic kidney disease with stage 1 through stage 4 chronic kidney disease, or unspecified chronic kidney disease; N18.3 Chronic kidney disease, stage 3 (moderate); K21.9 Gastro-esophageal reflux disease without esophagitis; Z88.0 Allergy status to penicillin; Z79.899 Other long term (current) drug therapy
CPT/HCPCS: 49083; C1892; J3490

== ENCOUNTER 2020-01-02 10:18 | Outpatient (CLI) | payer MEDICARE ==
[~2020-01-02] VITALS: Ht 160 cm; Wt 63.5 kg
[~2020-01-02 10:18] MED LIST changes: +FURO40TA4 PO
[2020-01-02 10:42] VITALS: BP 116/65
[2020-01-02 11:19] LABS: BASO # 0.1 x10^3/uL (0.0-0.2); BASO % 1 % (0-3); EOS % 0 % (0-3); HEMATOCRIT 22.5 % (36.0-47.0); HEMOGLOBIN 7.4 g/dL (12.0-15.5); LYMPH # 0.5 x10^3/uL (1.0-4.8); LYMPH % 6 % (24-48); MEAN CORPUSCULAR HEMOGLOBIN 24 pg (25-35); MEAN CORPUSCULAR HGB CONC 33 g/dL (31-37); MEAN CORPUSCULAR VOLUME 73 fL (79-100); MONO # 0.7 x10^3/uL (0.0-1.1); MONO % 8 % (0-9); NEUT # 8.3 x10^3/uL (1.8-7.7); NEUT % 86 % (31-73); PLATELET COUNT 739 x10^3/uL (140-400); RED BLOOD COUNT 3.09 x10^6/uL (3.50-5.40); RED CELL DISTRIBUTION WIDTH 18.6 % (11.5-14.5); WHITE BLOOD COUNT 9.7 x10^3/uL (4.0-11.0)
[2020-01-02] MEDS ORDERED: LIDOCAINE WITH 8.4% SOD BICARB 3 ML DISP.SYRIN. ONE (11:28)
[2020-01-02 11:29] LABS: PROTHROMBIN TIME PATIENT 15.9 SEC (11.7-14.0)
[2020-01-02 11:35] LABS: CALCIUM 7.7 mg/dL (8.5-10.1); CREATININE 1.8 mg/dL (0.6-1.0); GFR 28.2; POTASSIUM 3.3 mmol/L (3.5-5.1)
[2020-01-02 11:45] VITALS: BP 119/61
[2020-01-02] MEDS ORDERED: LIDOCAINE WITH 8.4% SOD BICARB 3 ML DISP.SYRIN. INJ ONE (11:45)
[2020-01-02 11:47] LABS: % LYMPHS 6 % (24-48)
[2020-01-02 11:48] LABS: % MONOS 6 % (0-10); % SEGS 88 % (35-66)
[2020-01-02 11:49] LABS: ANISOCYTOSIS SLIGHT; PLT ESTIMATE INCREASED (ADEQUATE)
[2020-01-02 12:13] VITALS: BP 115/69
[2020-01-02 12:33] VITALS: BP 119/68
--- NOTE | 2020-01-03 12:43 | RAD ---
Procedure: Ultrasound guided paracentesis. Indication: Recurrent ascites The procedure, risks, and complications, to include damage to hollow and solid abdominal viscera, bleeding, peritonitis and infection were explained to the patient and they understood same and wished to proceed. Consent form signed. The right mid to lower quadrant was prepped and draped using maximal sterile technique and 1% Xylocaine used for local anesthesia. Ultrasound-guided paracentesis: Under ultrasound guidance, a large pocket of fluid was identified and an 18 gauge Yueh needle was inserted into the fluid and 2600 cc of serous fluid was removed. The catheter was removed and pressure placed. An ultrasound image was saved and sent to PACS. The patient tolerated the procedure well and returned to the recovery area in stable condition. IMPRESSION: Ultrasound-guided paracentesis. The patient was noted during workup to have progressive anemia with a hemoglobin currently of 7.4, most recently 9.9. This had been trending down after reviewing prior labs. Patient does note that she has been having dark stools. This was communicated with patient's primary care physician Dr. Herrera. Patient's additional lab abnormalities were communicated to her primary care physician as well.
== END 2020-01-02 12:43 | disposition home or self-care (01) ==
LOC: INTRAD 10:18
PROVIDERS: ATTEND Internal Medicine Gastroenterology
DX: R18.8 Other ascites (principal); K74.60 Unspecified cirrhosis of liver
CPT/HCPCS: 36415; 49083; 80048; 85025; 85610; C1894; J3490; 85007

== ENCOUNTER 2020-01-13 08:43 | Outpatient (CLI) | payer MEDICARE ==
[~2020-01-13] VITALS: Ht 160 cm; Wt 63.5 kg
[2020-01-13] VITALS (7 sets, daily range): BP systolic 104–130; BP diastolic 56–75
[2020-01-13] MEDS ORDERED: LIDOCAINE WITH 8.4% SOD BICARB 3 ML DISP.SYRIN. ONE (08:56)
[2020-01-13 09:15] LABS: HEMOGLOBIN 6.7 g/dL (12.0-15.5); RED BLOOD COUNT 2.85 x10^6/uL (3.50-5.40); WHITE BLOOD COUNT 10.4 x10^3/uL (4.0-11.0)
[2020-01-13 09:16] LABS: HEMATOCRIT 20.8 % (36.0-47.0); RED CELL DISTRIBUTION WIDTH 18.9 % (11.5-14.5)
[2020-01-13] MEDS ORDERED: ALBUMIN HUMAN 25% 0 ML IV ONE (09:44)
[2020-01-13] MEDS ORDERED: LIDOCAINE WITH 8.4% SOD BICARB 3 ML DISP.SYRIN. INJ ONE (09:45)
--- NOTE | 2020-01-13 12:54 | NUR ---
pt recieved 1 unit of PRBC's today for hgb. of 6.7. also removed 1.5l of ascites fluid today. pt has tolerated all of this well. VSS. dressing on RLQ is clean and dry. pt tolerating po well, ambulated to b/r w/o problem. out to vehicle per w/c, to drive her home
--- NOTE | 2020-01-17 08:07 | RAD ---
Ultrasound-guided paracentesis 01/17/2020 6:04 AM Procedure: The risks and benefits of the procedure were discussed the patient. Informed consent was obtained. A timeout procedure was performed. Sonographic evaluation of the abdomen was performed demonstrating ascites . The right lower quadrant was prepped and draped using maximum sterile barrier technique. 1% lidocaine without epinephrine was administered for local anesthesia. Real-time ultrasonographic guidance was used in passing a 5 Amharic Yueh catheter into the fluid collection. 2 L of serous ascites was removed. The catheter was removed and pressure held to achieve hemostasis. A sterile dressing was applied. Impression: Successful ultrasound-guided paracentesis
== END 2020-01-13 13:10 | disposition home or self-care (01) ==
LOC: INTRAD 08:43
PROVIDERS: ATTEND Internal Medicine Gastroenterology
DX: R18.8 Other ascites (principal)
CPT/HCPCS: 36415; 49083; 85027; 86850; 86900; 86901; 86920; C1892; J3490; P9016

== ENCOUNTER → 2020-02-02 | Outpatient (CLI) | payer MEDICARE ==
[~2020-02-02] VITALS: Ht 160 cm; Wt 56.2 kg
[~2020-02-02] MED LIST changes: +LIDOCAINE WITH 8.4% SOD BICARB 3 ML DISP.SYRIN. INJ ONE; +LIDOCAINE WITH 8.4% SOD BICARB 3 ML DISP.SYRIN. ONE; -LISI1TAB19 PO; +LISI1TAB37 PO
[2020-02-02 10:00] VITALS: BP 135/62
--- NOTE | 2020-02-03 15:04 | RAD ---
Limited ultrasound of the abdomen 02/02/2020 INDICATION: Recurrent ascites, possible paracentesis Discussion: Limited ultrasound evaluation of the abdomen was performed. Only scant ascites is seen on today's visit. Paracentesis was deferred. IMPRESSION: Minimal ascites
== END | disposition home or self-care (01) ==
LOC: INTRAD 10:09
PROVIDERS: ATTEND Internal Medicine Gastroenterology
DX: R18.8 Other ascites (principal)
CPT/HCPCS: 76705

== ENCOUNTER → 2020-02-02 | Day surgery (SDC) | payer MEDICARE ==
[~2020-02-02] MED LIST changes: +IV RINGERS,LACTATED 1000ML 1,000 ML IV SCH; +LIDOCAINE 2% PF 5 ML VIAL. ONE; -LIDOCAINE WITH 8.4% SOD BICARB 3 ML DISP.SYRIN. INJ ONE; -LIDOCAINE WITH 8.4% SOD BICARB 3 ML DISP.SYRIN. ONE; +PROPOFOL 10 MG/ML (20ML) VIAL. IV ONE
[2020-02-02 13:17] VITALS: BP 117/63
== END | disposition home or self-care (01) ==
LOC: ENDOS 10:20
PROVIDERS: ATTEND Internal Medicine Gastroenterology
DX: D50.9 Iron deficiency anemia, unspecified (principal); K21.9 Gastro-esophageal reflux disease without esophagitis; K29.50 Unspecified chronic gastritis without bleeding; Z88.0 Allergy status to penicillin; Z79.899 Other long term (current) drug therapy
CPT/HCPCS: 43235; J2704

== ENCOUNTER 2020-02-09 09:52 | Outpatient (CLI) | payer MEDICARE ==
[~2020-02-09] VITALS: Ht 162.6 cm; Wt 56.2 kg
[~2020-02-09 09:52] MED LIST changes: -IV RINGERS,LACTATED 1000ML 1,000 ML IV SCH; -LIDOCAINE 2% PF 5 ML VIAL. ONE; -PROPOFOL 10 MG/ML (20ML) VIAL. IV ONE
[2020-02-09] MEDS ORDERED: LIDOCAINE WITH 8.4% SOD BICARB 3 ML DISP.SYRIN. ONE (10:18)
[2020-02-09 10:28] VITALS: BP 127/66
[2020-02-09 10:42] VITALS: BP 138/68
[2020-02-09] MEDS: LIDOCAINE WITH 8.4% SOD BICARB 3 ML DISP.SYRIN. IJ ONE (10:44)
[2020-02-09 10:53] VITALS: BP 124/58
[2020-02-09 10:55] VITALS: BP 129/77
[2020-02-09 11:10] VITALS: BP 131/69
[2020-02-09 11:25] VITALS: BP 136/75
--- NOTE | 2020-02-09 11:34 | NUR ---
Discharge Note: FLACO CAVANAUGH Discharge instructions and discharge home medications reviewed with Patient and a copy given. All questions have been answered and understanding verbalized. The following instructions and handouts were given: paracentesis Discontinued lines and drains: no lines/drains to dc. Patient discharged to Home or Self Care withSpousevia Wheelchair
--- NOTE | 2020-02-09 11:45 | RAD ---
Procedure: Ultrasound guided paracentesis Clinical Indication: Adult female with recurrent abdominal ascites Sedation: Local anesthesia only Antibiotics: None Fluoro Time: None Contrast: Not applicable Sterility: The procedure was performed in its entirety using appropriate elements of sterile technique. Consent: The procedure was explained in its entirety to the patient or the patients designated promotions representative by a member of the treatment team, including a discussion of the risks, benefits and commonly accepted alternatives to the procedure, as well as the expected consequences of no therapy whatsoever. Discussion of the risks included, but was not limited to, those that are most frequent and those that are rare but possibly severe or life-threatening, as well as the possibility of unforeseen complications. Technique and Findings: Following informed consent, the patient was prepped and draped in the usual sterile fashion. Ultrasound interrogation of the abdomen revealed abdominal ascites. A hard copy ultrasound image was recorded. 1% Lidocaine was used to achieve local anesthesia over the area of interest, and a 6 Georgian [id number]-Xlgesumh catheter was advanced into the peritoneal cavity under ultrasound guidance. 1500 cc of thin yellow ascites was then withdrawn. The catheter was removed and hemostasis was achieved with manual compression. Complications: No immediate Impression: 1. Ultrasound-guided paracentesis as described
== END 2020-02-09 11:37 | disposition home or self-care (01) ==
LOC: INTRAD 09:52
PROVIDERS: ATTEND Internal Medicine Gastroenterology
DX: R18.8 Other ascites (principal); K74.60 Unspecified cirrhosis of liver; Z88.0 Allergy status to penicillin; Z79.899 Other long term (current) drug therapy
CPT/HCPCS: 49083; C1892; J3490

== ENCOUNTER → 2020-02-13 | Outpatient (CLI) | payer MEDICARE ==
--- NOTE | 2020-02-15 10:43 | RAD ---
ORBIT FACE NECK WO CONTRAST Date: 02/13/2020 1:00 PM Indication: Posterior Right Eye Mass, Diplopia. No Contrast Due To Poor Renal Funciton Technique: Multiplanar, multi-weighted MRI of the orbits was performed without intravenous contrast using an orbital protocol. This included high resolution imaging of the orbits and optic nerves in the coronal and axial planes. Comparison: None. Findings: Ill-defined soft tissue thickening around the optic nerves in the intraconal fat along the posterior margin of both globes, slightly greater on the right. This is incompletely characterized due to lack of intravenous contrast. Tortuosity of the left optic nerve with asymmetric prominence of the fluid in the optic nerve sheath. No abnormal optic nerve signal. Optic chiasm is normal. Meckel's cave is normal. Carotid artery flow voids are normal. Suprasellar cistern is normal. No hydronephrosis or large space occupying mass. Mild sphenoid sinus secretions. Maxillary sinus mucus retention cysts. Mastoid air cells are clear. Diffuse heterogeneous T1 hypointense marrow signal. IMPRESSION: 1. Ill-defined soft tissue thickening around the optic nerves in the intraconal fat along the posterior margin of both globes, slightly greater on the right and incompletely characterized due to lack of intravenous contrast. Imaging features are nonspecific but considerations would include inflammatory conditions such as sarcoidosis and granulomatosis with polyangiitis, lymphoproliferative disorder, and metastatic disease. Erdheim-Hood should also be considered given the questionable retroperitoneal fibrosis seen on the recent CT abdomen pelvis. Bilateral orbital cellulitis is uncommon. 2. Mild tortuosity of the left optic nerve with asymmetric prominence of the fluid in the optic nerve sheath, nonspecific but can be seen in the setting of elevated CSF pressure. 3. Diffuse heterogeneous T1 hypointense marrow signal, which could be due to diffuse osseous metastatic disease or metabolic bone disease. Electronically signed by: Jose Simons MD (02/15/2020 10:40 AM) [id number]
== END | disposition home or self-care (01) ==
LOC: MRI 12:23
PROVIDERS: ATTEND Ophthalmology
DX: H53.2 Diplopia (principal); H57.89 Other specified disorders of eye and adnexa
CPT/HCPCS: 70540

== ENCOUNTER 2020-02-14 21:45 | Inpatient (IN) | payer MEDICARE ==
[~2020-02-14] VITALS: Ht 160 cm; Wt 55.2 kg
--- NOTE | 2020-02-14 22:05 | PHYS DOC ---
Past Medical History Past Medical History: Other Additional Past Medical Histor: CIRRHOSIS OF LIVER (NON ETOH RELATED) Past Surgical History: No Surgical History Additional Past Surgical Histo: REVEIVING PARACENTSIS WEEKLY Smoking Status: Never Smoker Alcohol Use: None General Adult EDM: Chief Complaint: ABDOMINAL PAIN HPI: HPI: Patient is a 64 year old female who presents with right upper quadrant pain that began today. Patient has a history of nonalcoholic cirrhosis and gets a paracentesis frequently and had one last but they did on the other side than usual and got 1.5 L out. Patient has moderate at rest and up to severe in intensity right upper quadrant pain that is worse with deep breaths and palpation. Patient denies any fever or vomiting. Pain is nonradiating. Of note patient had MRI of her eyes yesterday with results pending Review of Systems: Review of Systems: Constitutional: Denies fever or chills. [] HENT: Denies nasal congestion or sore throat. [] Respiratory: Denies cough or shortness of breath. [] Cardiovascular: Denies chest pain or edema. [] GI: Complains of abdominal pain but no, nausea, vomiting, bloody stools or diarrhea. [] : Denies dysuria. [] Musculoskeletal: Denies back pain or joint pain. [] Integument: Denies rash. [] Neurologic: Denies headache, focal weakness or sensory changes. [] Endocrine: Denies polyuria or polydipsia. [] Lymphatic: Denies swollen glands. [] Psychiatric: Denies depression or anxiety. [] Heart Score: Risk Factors: Risk Factors: DM, Current or recent (<one month) smoker, HTN, HLP, family history of CAD, obesity. Risk Scores: Score 0 - 3: 2.5% MACE over next 6 weeks - Discharge Home Score 4 - 6: 20.3% MACE over next 6 weeks - Admit for Clinical Observation Score 7 - 10: 72.7% MACE over next 6 weeks - Early Invasive Strategies Allergies: Allergies: Allergies Coded Allergies Type Severity Reaction Last Updated Verified Penicillins Allergy Intermediate Rash 02/02/20 Yes Physical Exam: PE: Constitutional: Well developed, well nourished, no acute distress, non-toxic appearance. [] HENT: Normocephalic, atraumatic, bilateral external ears normal, no trismus, nose normal. [] Eyes: PERRLA, EOMI, conjunctiva normal, no discharge. [] Neck: Normal range of motion, no tenderness, supple, no stridor. [] Cardiovascular:Heart rate regular rhythm, peripheral pulses intact cap refill brisk Lungs & Thorax: Diminished breath sounds on the left, no respiratory distress Abdomen: Mild distention with right upper quadrant tenderness without guarding or rebound, no masses, no pulsatile masses. [] Skin: Warm, dry, no erythema, no rash. [] Back: No tenderness, no CVA tenderness. [] Extremities: No tenderness, no cyanosis, no clubbing, ROM intact, 2 + B/L LE EDEMA Neurologic: Alert and oriented X 3, normal motor function, normal sensory function, no focal deficits noted. [] Psychologic: Affect normal, judgement normal, mood normal. [] Current Patient Data: Labs: Laboratory Tests Test 02/14/20 23:25 White Blood Count 11.5 x10^3/uL Red Blood Count 3.36 x10^6/uL Hemoglobin 8.8 g/dL Hematocrit 27.1 % Mean Corpuscular Volume 81 fL Mean Corpuscular Hemoglobin 26 pg Mean Corpuscular Hemoglobin Concent 33 g/dL Red Cell Distribution Width 25.1 % Platelet Count 493 x10^3/uL Neutrophils (%) (Auto) 88 % Lymphocytes (%) (Auto) 5 % Monocytes (%) (Auto) 5 % Eosinophils (%) (Auto) 1 % Basophils (%) (Auto) 2 % Neutrophils # (Auto) 10.1 x10^3/uL Lymphocytes # (Auto) 0.6 x10^3/uL Monocytes # (Auto) 0.6 x10^3/uL Eosinophils # (Auto) 0.1 x10^3/uL Basophils # (Auto) 0.2 x10^3/uL Segmented Neutrophils % 88 % Lymphocytes % 7 % Monocytes % 2 % Eosinophils % 2 % Basophils % 1 % Platelet Estimate Increased Hypochromasia Slight Anisocytosis Marked Prothrombin Time 14.3 SEC Prothromb Time International Ratio 1.2 Activated Partial Thromboplast Time 30 SEC Sodium Level 132 mmol/L Potassium Level 4.5 mmol/L Chloride Level 98 mmol/L Carbon Dioxide Level 25 mmol/L Anion Gap 9 Blood Urea Nitrogen 25 mg/dL Creatinine 1.8 mg/dL Estimated GFR (Cockcroft-Gault) 28.2 BUN/Creatinine Ratio 14 Glucose Level 100 mg/dL Lactic Acid Level 1.4 mmol/L Calcium Level 8.6 mg/dL Total Bilirubin 0.7 mg/dL Aspartate Amino Transf (AST/SGOT) 57 U/L Alanine Aminotransferase (ALT/SGPT) 38 U/L Alkaline Phosphatase 182 U/L Ammonia < 10 mcmol/L Total Protein 6.8 g/dL Albumin 2.6 g/dL Albumin/Globulin Ratio 0.6 Lipase 263 U/L Current Medications Medications (Trade) Dose Ordered Sig/Macy Route PRN Reason Start Time Stop Time Status Last Admin Dose Admin Morphine Sulfate (Morphine Sulfate) 2 mg PRN Q15MIN PRN IV/SQ PAIN GREATER THAN 3/10 02/14/20 22:15 02/15/20 22:14 Ceftriaxone Sodium (Rocephin) 1 gm 1X ONCE IVP 02/15/20 00:30 02/15/20 00:31 DC 02/15/20 00:51 Ondansetron HCl (Zofran) 4 mg PRN Q8HRS PRN IV NAUSEA/VOMITING 02/15/20 00:30 02/16/20 00:29 Morphine Sulfate (Morphine Sulfate) 2 mg PRN Q2HR PRN IV PAIN 02/15/20 00:30 02/16/20 00:29 Sodium Chloride 1,000 ml @ 75 mls/hr [id number] IV 02/15/20 00:30 02/16/20 00:29 02/15/20 00:51 Vital Signs: Vital Signs Date Time Temp Pulse Resp B/P (MAP) Pulse Ox O2 Delivery O2 Flow Rate FiO2 02/14/20 22:03 98.3 108 16 154/78 (103) 96 Room Air 98.3 EKG: EKG: [] Radiology/Procedures: Radiology/Procedures: [][facility] [address] [place], [place] [id number] IMAGING REPORT Signed PATIENT: FLACO CAVANAUGH ACCOUNT: [id number] : 1955 LOCATION: ER AGE: 64 SEX: F EXAM STATUS: REG ER ORD. PHYSICIAN: MAYUR HILLS MD REASON: RUQ PAIN PROCEDURE: PORTABLE CHEST 1V EXAM: AP View of the chest DATE: 02/14/2020 10:15 PM INDICATION: Reason: RUQ PAIN / Spl. Instructions: / History: COMPARISON: 10/23/2019 01/22/2020 FINDINGS/ IMPRESSION: The heart is not enlarged. Moderate left pleural effusion with left lung base opacities likely atelectasis or developing consolidation, progressed compared to 01/22/2020. Mild interstitial prominence bilaterally. No pneumothorax. Heterogeneous sclerosis of the osseous structures is unchanged. Electronically signed by: Ray Ng MD (02/14/2020 10:37 PM) [facility] DICTATED and SIGNED BY: RAY NG MD DATE: 02/14/202236 Course & Med Decision Making: Course & Med Decision Making Pertinent Labs and Imaging studies reviewed. (See chart for details) [] 64-year-old female presents with right upper quadrant pain. Patient has a loculated fluid collection and ascites which may represent peritonitis. Patient will be started on antibiotics and will be admitted to Dr. James Herrera. Patient does not have severe sepsis or septic shock upon arrival. Patient was not given aggressive fluids due to the nature of her cirrhosis. Patient will have consults placed with her GI doctor as well as interventional radiology as she needs a paracentesis and a thoracentesis. Infectious disease is also been consulted. Shaniqua Disclaimer: Shaniqua Disclaimer: This electronic medical record was generated, in whole or in part, using a voice recognition dictation system. Departure Departure Impression: Primary Impression: Peritonitis Additional Impressions: Pleural effusion, left RUQ abdominal pain Ascites Disposition: ADMITTED INPATIENT Admitting Physician: James Herrera Condition: STABLE Referrals: NOLAN VEGA DO (PCP) Justicifation of Admission Dx: Justifications for Admission: Justification of Admission Dx: Yes MAYUR HILLS MD Feb 14, 2020 22:05
[2020-02-14] MEDS ORDERED: MORPHINE SULFATE 2 MG/ML VIAL. IV/SQ PRN (22:15)
--- NOTE | 2020-02-14 22:40 | RAD ---
EXAM: AP View of the chest DATE: 02/14/2020 10:15 PM INDICATION: Reason: RUQ PAIN / Spl. Instructions: / History: COMPARISON: 10/23/2019 01/22/2020 FINDINGS/ IMPRESSION: The heart is not enlarged. Moderate left pleural effusion with left lung base opacities likely atelectasis or developing consolidation, progressed compared to 01/22/2020. Mild interstitial prominence bilaterally. No pneumothorax. Heterogeneous sclerosis of the osseous structures is unchanged. Electronically signed by: Ray Maldonado MD (02/14/2020 10:37 PM) [facility]
[2020-02-14 23:41] LABS: BASO # 0.2 x10^3/uL (0.0-0.2); BASO % 2 % (0-3); EOS # 0.1 x10^3/uL (0.0-0.7); EOS % 1 % (0-3); HEMATOCRIT 27.1 % (36.0-47.0); HEMOGLOBIN 8.8 g/dL (12.0-15.5); LYMPH # 0.6 x10^3/uL (1.0-4.8); LYMPH % 5 % (24-48); MEAN CORPUSCULAR HEMOGLOBIN 26 pg (25-35); MEAN CORPUSCULAR HGB CONC 33 g/dL (31-37); MEAN CORPUSCULAR VOLUME 81 fL (79-100); MONO # 0.6 x10^3/uL (0.0-1.1); MONO % 5 % (0-9); NEUT # 10.1 x10^3/uL (1.8-7.7); NEUT % 88 % (31-73); PLATELET COUNT 493 x10^3/uL (140-400); RED BLOOD COUNT 3.36 x10^6/uL (3.50-5.40); RED CELL DISTRIBUTION WIDTH 25.1 % (11.5-14.5); WHITE BLOOD COUNT 11.5 x10^3/uL (4.0-11.0)
[2020-02-14 23:46] LABS: CALCIUM 8.6 mg/dL (8.5-10.1); CREATININE 1.8 mg/dL (0.6-1.0); GFR 28.2; POTASSIUM 4.5 mmol/L (3.5-5.1)
[2020-02-14 23:51] LABS: PROTHROMBIN TIME PATIENT 14.3 SEC (11.7-14.0)
[2020-02-14 23:54] LABS: ALBUMIN 2.6 g/dL (3.4-5.0); ALBUMIN/GLOBULIN RATIO 0.6 (1.0-1.7); TOTAL BILIRUBIN 0.7 mg/dL (0.2-1.0); TOTAL PROTEIN 6.8 g/dL (6.4-8.2)
[2020-02-15] VITALS (11 sets, daily range): BP systolic 99–150; BP diastolic 48–69
[2020-02-15] LABS: % BASOS 1 % (0-3); % EOS 2 % (0-5); % LYMPHS 7 % (24-48); % MONOS 2 % (0-10); % SEGS 88 % (35-66); ANISOCYTOSIS MARKED; HYPOCHROMIA SLIGHT; PLT ESTIMATE INCREASED (ADEQUATE)
--- NOTE | 2020-02-15 00:17 | RAD ---
CT abdomen and pelvis without contrast PQRS statement: CT scans at this facility use dose reduction including either automated exposure control, iterative reconstructions, and /or weight based radiation dosing via mA and kV modification when appropriate to reduce radiation dose to as low as reasonably achievable. HISTORY: Right upper quadrant abdominal pain. COMPARISON: CT abdomen and pelvis October 24, 2019. Abdomen findings: Mild right pleural effusion and moderate-large left pleural effusion with passive atelectasis and collapse of most of the left lower lobe consolidated opacity which has progressed since the prior exam. There is a moderate-large volume of ascites which has increased. Diffuse heterogeneous bony sclerosis stable. T10 vertebral hemangioma without bony sclerosis stable. There is apparent mass effect due to loculation of the ascites at the right upper quadrant scalloping the surface of the right hepatic lobe which has increased. Gallstone. Pancreas, spleen, adrenals unremarkable. Gallstones. There is mild bilateral renal hydronephrosis which is new from the prior exam. Tiny calculus right renal upper pole. Prominent volume of stool may be constipation. No small bowel obstruction. Appendix not visualized. Indistinct soft tissue density at the retroperitoneum draping the aorta and IVC, could represent fibrosis, matted adenopathy is a secondary consideration. Pelvis findings: Pelvic ascites again demonstrated. There is urinary bladder wall thickening again demonstrated. Right ovary is indistinct posterior of the uterine horn. Left ovary, uterus unremarkable. Rectal wall thickness is prominent, stable. Indistinct soft tissue density surrounding the iliac vessels at the retroperitoneum the aortic bifurcation represent fibrosis or metastatic adenopathy. There is mild soft tissue edema at the anterior pelvis and upper thighs. Diffuse bony sclerosis. IMPRESSION: 1. Moderate abdominal ascites has increased in volume. There is loculation of the fluid particularly at the right upper quadrant where there is scalloping of the surface of the right hepatic lobe, which could indicate malignant ascites including pseudomyxoma peritonei. Peritonitis with loculation of fluid also be a consideration. 2. Mild bilateral renal hydronephrosis is new from the prior exam. No obstructing urinary calculi. 3. Indistinct soft tissue density of the retroperitoneum surrounding and somewhat obscuring visualization of the aorta, IVC and iliac vessels may represent retroperitoneal fibrosis. Matted adenopathy would be a secondary consideration. This may account for the hydronephrosis. 4. 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 Metabolic bone disease is a secondary consideration. 5. Diffuse bladder wall thickening could be inflammatory, muscular hypertrophy of the wall, or neoplastic. 6. Prominent circumferential wall thickening of the lower rectum could be inflammatory or neoplastic. Electronically signed by: Adan Kc MD (02/15/2020 12:15 AM) [facility]
[2020-02-15] MEDS ORDERED: MORPHINE SULFATE 2 MG/ML VIAL. IV PRN (00:30)
[2020-02-15] MEDS ORDERED: cefTRIAXone IV Push 1 GM VIAL. IVP ONE (00:30)
[2020-02-15] MEDS ORDERED: ONDANSETRON PF 4 MG/2 ML VIAL. IV PRN (00:30)
[2020-02-15] MEDS: IV NORMAL SALINE 1000ML BAG 1,000 ML IV SCH ×2 (00:51→13:27)
[2020-02-15] MEDS ORDERED: LIDOCAINE WITH 8.4% SOD BICARB 3 ML DISP.SYRIN. ONE ×2 (08:03→08:28)
[2020-02-15] MEDS ORDERED: LIDOCAINE WITH 8.4% SOD BICARB 3 ML DISP.SYRIN. IJ ONE (08:30)
--- NOTE | 2020-02-15 08:49 | PDOC ---
Date of Service: DATE: 02/15/20 TIME: 08:45 Subjective: Subjective: 64 y/o female who we have seen several times recently. Please see last GI consult and following progress notes from 01/23/20. Currently w/o GI complaints. Objective: Objective: Recent EGD w/ erythema in entire stomach (no biopsy), normal esophagus, normal duodenum. Vital Signs: Vital Signs Date Time Temp Pulse Resp B/P (MAP) Pulse Ox O2 Delivery O2 Flow Rate FiO2 02/15/20 08:34 104 17 130/61 (84) 96 Room Air 02/15/20 07:00 97.3 97.3 Labs: Laboratory Tests Test 02/14/20 23:25 White Blood Count 11.5 x10^3/uL Red Blood Count 3.36 x10^6/uL Hemoglobin 8.8 g/dL Hematocrit 27.1 % Mean Corpuscular Volume 81 fL Mean Corpuscular Hemoglobin 26 pg Mean Corpuscular Hemoglobin Concent 33 g/dL Red Cell Distribution Width 25.1 % Platelet Count 493 x10^3/uL Neutrophils (%) (Auto) 88 % Lymphocytes (%) (Auto) 5 % Monocytes (%) (Auto) 5 % Eosinophils (%) (Auto) 1 % Basophils (%) (Auto) 2 % Neutrophils # (Auto) 10.1 x10^3/uL Lymphocytes # (Auto) 0.6 x10^3/uL Monocytes # (Auto) 0.6 x10^3/uL Eosinophils # (Auto) 0.1 x10^3/uL Basophils # (Auto) 0.2 x10^3/uL Segmented Neutrophils % 88 % Lymphocytes % 7 % Monocytes % 2 % Eosinophils % 2 % Basophils % 1 % Platelet Estimate Increased Hypochromasia Slight Anisocytosis Marked Prothrombin Time 14.3 SEC Prothromb Time International Ratio 1.2 Activated Partial Thromboplast Time 30 SEC Sodium Level 132 mmol/L Potassium Level 4.5 mmol/L Chloride Level 98 mmol/L Carbon Dioxide Level 25 mmol/L Anion Gap 9 Blood Urea Nitrogen 25 mg/dL Creatinine 1.8 mg/dL Estimated GFR (Cockcroft-Gault) 28.2 BUN/Creatinine Ratio 14 Glucose Level 100 mg/dL Lactic Acid Level 1.4 mmol/L Calcium Level 8.6 mg/dL Total Bilirubin 0.7 mg/dL Aspartate Amino Transf (AST/SGOT) 57 U/L Alanine Aminotransferase (ALT/SGPT) 38 U/L Alkaline Phosphatase 182 U/L Ammonia < 10 mcmol/L Total Protein 6.8 g/dL Albumin 2.6 g/dL Albumin/Globulin Ratio 0.6 Lipase 263 U/L Imaging: CXR 02/14/20 IMPRESSION: The heart is not enlarged. Moderate left pleural effusion with left lung base opacities likely atelectasis or developing consolidation, progressed compared to 01/22/2020. Mild interstitial prominence bilaterally. No pneumothorax. Heterogeneous sclerosis of the osseous structures is unchanged. CT A/P 02/14/20 IMPRESSION: 1. Moderate abdominal ascites has increased in volume. There is loculation of the fluid particularly at the right upper quadrant where there is scalloping of the surface of the right hepatic lobe, which could indicate malignant ascites including pseudomyxoma peritonei. Peritonitis with loculation of fluid also be a consideration. 2. Mild bilateral renal hydronephrosis is new from the prior exam. No obstruct ing urinary calculi. 3. Indistinct soft tissue density of the retroperitoneum surrounding and somewhat obscuring visualization of the aorta, IVC and iliac vessels may represent retroperitoneal fibrosis. Matted adenopathy would be a secondary consideration. This may account for the hydronephrosis. 4. 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 Metabolic bone disease is a secondary consideration. 5. Diffuse bladder wall thickening could be inflammatory, muscular hypertrophy of the wall, or neoplastic. 6. Prominent circumferential wall thickening of the lower rectum could be inflammatory or neoplastic. PE: GEN: NAD HEENT: atraumatic LUNGS: clear HEART: RRR ABD: non-distended EXTREMITY: no edema SKIN: no jaundice NEURO/PSYCH: A & O x 3 A/P: Cirrhosis (NAFLD) w/ recurrent ascites and frequent paracentesis, recently thoracentesis - on Lasix and Aldactone Mild leukocytosis, ACD/JENNA, chronic thrombocytosis, CKD GERD - on PPI, recent EGD as above CRC screen - unclear Cholelithiasis H/o elevated lipase/?pancreatitis H/o abnormal bone scan -- S/p paracentesis/thoracentesis. D/w Dr. Jeffers - defer to pulm/IR re: possible pleurodesis vs TIPS. D/w nurse as well. Okay to [facility] per GI. Justicifation of Admission Dx: Justifications for Admission: Justification of Admission Dx: Yes GILLIAN OLSEN Feb 15, 2020 08:49 MAYUR JEFFERS MD Feb 15, 2020 09:56
--- NOTE | 2020-02-15 08:52 | PDOC ---
Provider Note Provider Note [id number] Justicifation of Admission Dx: Justifications for Admission: Justification of Admission Dx: Yes NABIL BURCH MD Feb 15, 2020 08:52
[2020-02-15] MEDS ORDERED: ALBUMIN HUMAN 25% 100 ML IV ONE ×2 (08:56→09:15)
--- NOTE | 2020-02-15 09:02 | HP ---
ADMIT DATE: 02/15/2020 CHIEF COMPLAINT: Right upper quadrant pain and fever. HISTORY OF PRESENT ILLNESS: A 64-year-old white female who has severe cirrhosis from nonalcoholic fatty liver disease, has been getting weekly paracentesis for several months for recurrent fluid. She has been on Lasix and spironolactone recently with mild benefit, but continues to have need for paracentesis. Last paracentesis was on 02/08 and then went uneventfully with approximately 1.5 liters removed. She developed increasing right upper quadrant pain in the last day or two with low-grade fever and CT scan showed evidence of loculated fluid collection with a left-sided pleural effusion present as well. She is in Interventional Radiology now for thoracentesis and paracentesis to assess for the possibility of bacterial peritonitis. ALLERGIES: PENICILLIN IS LISTED. MEDICATIONS: Listed per the chart. SOCIAL HISTORY: Lives at home with her , disabled, nondrinker, nonsmoker. FAMILY HISTORY: Unremarkable. REVIEW OF SYSTEMS: No other known problems. She has chronic anemia. EGD has not yet been done to my knowledge to evaluate the source of this, but a suspicion of esophageal varices has been raised in the past. She has received transfusions at least twice in the last month or so. OBJECTIVE: ENT: Moderate pallor, mild icterus. Otherwise, unremarkable. NECK: No masses, nodes or bruits. LUNGS: Clear with decreased breath sounds, left base. CARDIOVASCULAR: Regular rate, tachycardia. No murmur. ABDOMEN: Protuberant, tender in the right and left upper quadrant. No guarding is noted. EXTREMITIES: Poor muscle mass. Pedal pulses good. No edema in the extremities. NEUROLOGIC: Physiologic. ASSESSMENT: Progressive abdominal pain after thoracentesis. This has raised the question of bacterial peritonitis either spontaneous or procedure related. Her nonalcoholic fatty liver disease and cirrhosis stable. Chronic anemia, etiology is undetermined at this time. Multifactorial in nature. PLAN: Per assessment of the fluid. Flagyl and Rocephin pending ID consultation for thoracentesis and paracentesis, fluid cultures and assessment for infection. NABIL BURCH MD DR: AMOS/enrrique JOB#: [id number] / [id number]
--- NOTE | 2020-02-15 09:45 | NUR ---
ALFRED following. Discussed with RN, pt from home, has weekly paracentesis. Room air, NPO, no PT/OT ordered. ALFRED will continue to follow. Addendum: 02/15/20 at 1132 by HARRIS SIMON Pt is current with [facility].
--- NOTE | 2020-02-15 10:54 | CONS ---
DATE OF CONSULTATION: 02/15/2020 REFERRING PHYSICIAN: Dr. Nagy. REASON FOR CONSULTATION: Peritonitis. HISTORY OF PRESENT ILLNESS: This is a 64-year-old female with history of nonalcoholic steatohepatitis with cirrhosis who gets paracentesis frequently, which she underwent last , presented with complaints of right upper quadrant pain, which started a day prior to admission. Denies any fevers, chills, nausea, vomiting, cough, shortness of breath, sore throat, or difficulty swallowing. She also has some shortness of breath, which she attributes to right upper quadrant abdominal pain. The patient denies any symptoms, rash, or joint pain. She underwent MRI of the eyes yesterday. She remained afebrile. White count is 11.5, hemoglobin of 8.8, platelets of 493, creatinine of 1.8, lactate of 1.4, AST 57, ALT 38, alk phos 182, ammonia less than 10, and lipase 263. She underwent a CT of the abdomen and pelvis, which showed moderate abdominal ascites, has increase in volume. There is loculation of fluid, particularly at the right upper quadrant with a scalloping of the surface of the right hepatic lobe, which could indicate malignant ascites including Pseudomyxoma peritonei peritonitis with loculation of fluid may also be a consideration. Mild bilateral renal hydronephrosis is new. No obstructing renal calculi, indistinct soft tissue density of the retroperitoneum surrounding obscuring the visualization of the aorta. IVC and iliac vessels may represent retroperitoneal fibrosis. Matted adenopathy may be secondary consideration, this could account for the hydronephrosis, diffuse bony sclerosis. Metastatic bone disease is secondary consideration. Diffuse bladder wall thickening, may be inflammatory muscular hypertrophy of the wall or neoplastic. Prominent circumferential wall thickening of the lower rectum could be inflammatory or neoplastic. The patient was started on ceftriaxone and Flagyl in the ER. ID consult has been requested for further evaluation and treatment. The patient is awaiting IR evaluation for possible drainage later today. The patient also had chest x-ray, which showed moderate left pleural effusion with left lung base opacities, likely atelectasis or developing consolidation progressed compared to 01/22/2020. Mild interstitial prominence bilaterally. No pneumothorax. PAST MEDICAL HISTORY: Cirrhosis, ascites status post frequent paracentesis, thrombocytosis, GERD, CKD, history of enterococcus UTI. FAMILY HISTORY: As per HPI. SOCIAL HISTORY: Denies smoking, ETOH, or illicit drug use. REVIEW OF SYSTEMS: Negative except for above in HPI. ALLERGIES: PENICILLIN, RASH, THE PATIENT IS NOT SURE IF SHE GOT AMOXICILLIN OR AUGMENTIN. PHYSICAL EXAMINATION: VITAL SIGNS: Temperature 97.7, pulse 88, respiratory rate 18, blood pressure 104/53, oxygen saturation 93% on room air. GENERAL: Alert, awake, thin female, lying in bed comfortably, in no acute distress. HEENT: Normocephalic, atraumatic, anicteric. No thrush. Oral mucosa is moist. NECK: Supple, no JVD, no thyromegaly. LUNGS: Decreased breath sounds at the bases, otherwise clear. No accessory muscle use. HEART: S1 and S2. No gallops or murmurs. ABDOMEN: Distended, mild discomfort, nontender. Bowel sounds present. No rebound, no guarding. EXTREMITIES: Bilateral pitting edema. DERMATOLOGIC: Warm and dry. No generalized rash. NEUROLOGIC: Alert and oriented x 3, grossly nonfocal. PSYCHIATRIC: Cooperative. LABORATORY DATA: WBC 11.5, hemoglobin 8.8, hematocrit 27.1, platelets 493. Sodium 132, potassium 4.5, chloride 98, bicarb 25, BUN 25, creatinine 1.8, glucose 100. Lactate 1.4, calcium 8.6, AST 57, ALT 38, alk phos 182. Ammonia less than 10. Total protein 6.8, albumin 2.6, lipase 263. IMAGING: CT abdomen and pelvis as above. Chest x-ray as above. IMPRESSION: 1. Abdominal pain. 2. Mild leukocytosis, could be reactive. 3. Cirrhosis with recurrent ascites and frequent paracentesis. 4. Pleural effusion. 5. Chronic kidney disease. 6. Chronic thrombocytosis. 7. History of enterococcus urinary tract infection, asymptomatic at this time. 8. Gastroesophageal reflux disease. 9. History of cholelithiasis. 10. History of abnormal bone scan. 11. Mild bilateral renal hydronephrosis, no obstructing urinary calculi. 12. Diffuse bony sclerosis. 13. Anemia. 14. Protein-calorie malnutrition. 15. HISTORY OF ALLERGIES TO PENICILLIN WITH RASH. RECOMMENDATIONS: 1. Continue observation off antibiotics. S/P ceftriaxone and Flagyl once in ER 2. The patient is awaiting paracentesis today. 3. Follow up cultures and lab. 4. Continue supportive care. Thank you for consulting Infectious Disease to participate in this patient's care. If you have any questions, do not hesitate to contact me. MAYRA DUNCAN MD DR: JESSI/enrrique JOB#: [id number] / [id number] [facility]
--- NOTE | 2020-02-15 15:17 | RAD ---
Ultrasound-guided left-sided thoracentesis 02/15/2020 1:13 PM Indication: RECURRENT ASCITES LEFT PLEURAL EFFUSION Procedure: Informed consent was obtained. A timeout procedure was performed. Sonographic evaluation of the left chest was performed demonstrating moderate pleural effusion. The left posterior chest was prepped and draped in sterile fashion. 1% lidocaine without epinephrine was administered for local anesthesia. Real-time ultrasonographic guidance was used in passing a 5 Iranian Yueh catheter into the left pleural space. 600 cc of serous pleural fluid was removed. The patient began to experience significant discomfort and the procedure was terminated at that point. Samples of fluid were sent to the lab for further evaluation per ordering physician request. The catheter was removed and pressure held to achieve hemostasis. A sterile dressing was applied. No immediate complications were identified. The patient tolerated the procedure well. Impression: Left sided ultrasound-guided thoracentesis Ultrasound-guided paracentesis 02/15/2020 1:14 PM Procedure: The risks and benefits of the procedure were discussed the patient. Informed consent was obtained. A timeout procedure was performed. Sonographic evaluation of the abdomen was performed demonstrating ascites . The right lower quadrant was prepped and draped using maximum sterile barrier technique. 1% lidocaine without epinephrine was administered for local anesthesia. Real-time ultrasonographic guidance was used in passing a 5 Iranian Yueh catheter into the fluid collection. 2 L of serous ascites was removed. The catheter was removed and pressure held to achieve hemostasis. A sterile dressing was applied. Impression: Successful ultrasound-guided paracentesis
[2020-02-16 02:48] VITALS: BP 115/58
[2020-02-16 02:55] LABS: BILIRUBIN,URINE NEGATIVE (NEG); CLARITY,URINE CLEAR; COLOR,URINE YELLOW; NITRITE,URINE NEGATIVE (NEG); PROTEIN,URINE NEGATIVE (NEG-TRACE); UROBILINOGEN,URINE 0.2 mg/dL (0.2 mg/dL)
[2020-02-16 03:02] LABS: SQUAMOUS EPITHELIAL CELL,UR MOD /LPF
[2020-02-16 03:04] LABS: BACTERIA,URINE FEW /HPF (0-FEW); RBC,URINE 0 /HPF (0-2)
[2020-02-16 03:05] LABS: AMORPHOUS SEDIMENT,UR PRESENT /HPF
[2020-02-16 07:00] VITALS: BP 106/57
[2020-02-16] MEDS ORDERED: ONDANSETRON ODT 4 MG TAB.RAPDIS. PO PRN (07:45)
[2020-02-16] MEDS ORDERED: PANTOPRAZOLE 40 MG TABLET.DR. PO SCH (08:00)
[2020-02-16] MEDS ORDERED: FERROUS SULFATE 325 MG TABLET. PO SCH (08:00)
--- NOTE | 2020-02-16 08:12 | PDOC ---
Provider Note Provider Note no temp and pain is better- fluid culture pending re ? of peritonitis in ER, was given flagyl/rocephin x 1- if cults/ fluid looks good can dc Justicifation of Admission Dx: Justifications for Admission: Justification of Admission Dx: Yes NABIL BURCH MD Feb 16, 2020 08:12
--- NOTE | 2020-02-16 08:13 | PDOC ---
Infectious Disease Note Subjective: Subjective Patient feels much better after undergoing thoracocentesis and. Peritoneal drainage Denies fever, nausea, vomiting, shortness of breath, diarrhea, abdominal pain, r sofi Vital Signs: Vital Signs Vital Signs Date Time Temp Pulse Resp B/P (MAP) Pulse Ox O2 Delivery O2 Flow Rate FiO2 02/16/20 07:00 98.4 79 16 106/57 (73) 96 Room Air 98.4 Physical Exam: PHYSICAL EXAM GENERAL: Alert, awake, thin female, lying in bed comfortably, in no acute distress. HEENT: Normocephalic, atraumatic, anicteric. No thrush. Oral mucosa is moist. NECK: Supple, no JVD, no thyromegaly. LUNGS: Decreased breath sounds at the bases, otherwise clear. No accessory muscle use. HEART: S1 and S2. No gallops or murmurs. ABDOMEN: Less distended, no discomfort, nontender. Bowel sounds present. No rebound, no guarding. EXTREMITIES: Bilateral pitting edema. DERMATOLOGIC: Warm and dry. No generalized rash. NEUROLOGIC: Alert and oriented x 3, grossly nonfocal. PSYCHIATRIC: Cooperative. Medications: Inpatient Meds: Current Medications Medications (Trade) Dose Ordered Sig/Macy Start Time Stop Time Status Last Admin Dose Admin Albumin Human 100 ml @ 100 mls/hr 1X ONCE 02/15/20 09:15 02/15/20 10:14 DC 02/15/20 09:00 100 MLS/HR Ceftriaxone Sodium (Rocephin) 1 gm 1X ONCE 02/15/20 00:30 02/15/20 00:31 DC 02/15/20 00:51 1 GM Ferrous Sulfate (Feosol) 325 mg [id number] 02/16/20 08:00 Furosemide (Lasix) 40 mg DAILY 02/16/20 09:00 Lidocaine HCl (Buffered Lidocaine 1%) 3 ml STK-MED ONCE 02/15/20 08:28 02/15/20 08:28 DC Metronidazole 100 ml @ 100 mls/hr 1X ONCE 02/15/20 00:45 02/15/20 01:44 DC 02/15/20 00:51 100 MLS/HR Morphine Sulfate (Morphine Sulfate) 2 mg PRN Q2HR PRN 02/15/20 00:30 02/16/20 00:29 DC Ondansetron HCl (Zofran Odt) 4 mg PRN BID PRN 02/16/20 07:45 Ondansetron HCl (Zofran) 4 mg PRN Q8HRS PRN 02/15/20 00:30 02/16/20 00:29 DC Pantoprazole Sodium (Protonix) 40 mg DAILYAC 02/16/20 08:00 Sodium Chloride 1,000 ml @ 75 mls/hr [id number] 02/15/20 00:30 02/16/20 00:29 DC 02/15/20 13:27 75 MLS/HR Spironolactone (Aldactone) 50 mg DAILY 02/16/20 09:00 Labs: Lab Laboratory Tests Test 02/16/20 02:40 Urine Collection Type Unknown Urine Color Yellow Urine Clarity Clear Urine pH 5.0 (<5.0-8.0) Urine Specific [place] 1.010 (1.000-1.030) Urine Protein Negative mg/dL (NEG-TRACE) Urine Glucose (UA) Negative mg/dL (NEG) Urine Ketones (Stick) Negative mg/dL (NEG) Urine Blood Negative (NEG) Urine Nitrite Negative (NEG) Urine Bilirubin Negative (NEG) Urine Urobilinogen Dipstick 0.2 mg/dL (0.2 mg/dL) Urine Leukocyte Esterase Small (NEG) Urine RBC 0 /HPF (0-2) Urine WBC 11-20 /HPF (0-4) Urine Squamous Epithelial Cells Mod /LPF Urine Renal Epithelial Cells Few /LPF Urine Amorphous Sediment Present /HPF Urine Bacteria Few /HPF (0-FEW) Urine Mucus Slight /LPF Objective: Assessment: 1. Abdominal pain. Improved after peritoneal drainage 2. Mild leukocytosis, could be reactive. 3. Cirrhosis with recurrent ascites and frequent paracentesis. 4. Pleural effusion. Status post thoracocentesis 5. Chronic kidney disease. 6. Chronic thrombocytosis. 7. History of enterococcus urinary tract infection, asymptomatic at this time. 8. Gastroesophageal reflux disease. 9. History of cholelithiasis. 10. History of abnormal bone scan. 11. Mild bilateral renal hydronephrosis, no obstructing urinary calculi. 12. Diffuse bony sclerosis. 13. Anemia. 14. Protein-calorie malnutrition. 15. HISTORY OF ALLERGIES TO PENICILLIN WITH RASH. Plan: Plan of Care Continue observation off antibiotics. S/P ceftriaxone and Flagyl once in ER Follow up cultures and lab. MAYRA DUNCAN MD Feb 16, 2020 08:13
[2020-02-16] MEDS ORDERED: FUROSEMIDE 40 MG TABLET. PO SCH (09:00)
[2020-02-16] MEDS ORDERED: SPIRONOLACTONE 25 MG TABLET PO SCH (09:00)
[2020-02-16 10:40] VITALS: BP 102/58
--- NOTE | 2020-02-16 10:59 | NUR ---
SS following for discharge planning. SS reviewed pt chart and discussed with pt RN. Pt is from home with spouse and is currently on room air. Pt had paracentesis and thoracentesis. Currently awaiting culture/fluid results. If fluid/culture results look good possible discharge to home. SS will continue to follow for discharge planning.
--- NOTE | 2020-02-16 12:22 | PDOC ---
Date of Service: DATE: 02/16/20 TIME: 12:17 Subjective: Subjective: Indicates to me she's going home. No GI concerns. Objective: Vital Signs: Vital Signs Date Time Temp Pulse Resp B/P (MAP) Pulse Ox O2 Delivery O2 Flow Rate FiO2 02/16/20 10:40 98.5 90 16 102/58 (73) 98 Room Air 98.5 Labs: Laboratory Tests Test 02/16/20 02:40 Urine Collection Type Unknown Urine Color Yellow Urine Clarity Clear Urine pH 5.0 Urine Specific [place] 1.010 Urine Protein Negative mg/dL Urine Glucose (UA) Negative mg/dL Urine Ketones (Stick) Negative mg/dL Urine Blood Negative Urine Nitrite Negative Urine Bilirubin Negative Urine Urobilinogen Dipstick 0.2 mg/dL Urine Leukocyte Esterase Small Urine RBC 0 /HPF Urine WBC 11-20 /HPF Urine Squamous Epithelial Cells Mod /LPF Urine Renal Epithelial Cells Few /LPF Urine Amorphous Sediment Present /HPF Urine Bacteria Few /HPF Urine Mucus Slight /LPF BLOOD CULTURE Preliminary NO GROWTH AFTER 1 DAY Imaging: S/p thoracentesis and paracentesis 02/14 600cc, 2L PE: GEN: NAD LUNGS: CTAB HEART: RRR ABD: S/ND/NT NEURO/PSYCH: A & O 3 A/P: Cirrhosis (NAFLD) w/ ascites and pleural effusion requiring regular paracentesis and more recently thoracentesis -- Discussed TIPS vs pleurodesis w/ - she is very focused on discharge. Will review w/ Dr. Jeffers. Justicifation of Admission Dx: Justifications for Admission: Justification of Admission Dx: Yes GILLIAN OLSEN Feb 16, 2020 12:22
--- NOTE | 2020-02-16 12:52 | NUR ---
Dr. Herrera notified that pt is adamant on discharging. Explained that GI consulted Pulmonology for possible pleurodesis vs TIPS procedure. Carmina Martel stated that it is okay for the patient to be worked up as outpatient for this consultation. Dr. Herrera stated patient is okay to discharge with no changes in home medications. Patient and family notified.
--- NOTE | 2020-02-16 12:55 | DS ---
DATE OF DISCHARGE: 02/16/2020 HOSPITAL SUMMARY: The patient was admitted with right upper quadrant abdominal pain for 5 days after recent paracentesis. CT scan showed no acute changes and laboratory studies were unremarkable with mild anemia persisting. Chemistry and cytology of the pleural and abdominal fluid is pending at this time. She was given IV Flagyl and Rocephin in the ER as possible peritonitis, but repeat taps of pleural and abdominal fluid did not confirm the suspicion of this. She remained afebrile during the hospital stay and is comfortable to be followed as an outpatient. FINAL DIAGNOSES: 1. Abdominal pain secondary to chronic ascites from nonalcoholic fatty liver disease with secondary cirrhosis. 2. Pleural effusion left-sided secondary to ascites and transdiaphragmatic transit. 3. Anemia of chronic disease. OPERATIONS AND PROCEDURES: Thoracentesis, paracentesis. COMPLICATIONS: None. CONSULTATIONS: Interventional Radiology, Dr. Pat of Infectious Disease, Dr. Jeffers. DISPOSITION: Home. MEDICATIONS: Remain the same. No antibiotics were given for the failure of confirmation of peritonitis. FOLLOWUP: As already scheduled. PROGNOSIS: Guarded given the severity of her liver disease and fluid recollection. NABIL BURCH MD DR: AMOS/enrrique JOB#: [id number] / [id number]
--- NOTE | 2020-02-16 13:20 | NUR ---
Discharge Note: FLACO CAVANAUGH Discharge instructions and discharge home medications reviewed with Patient and a copy given. All questions have been answered and understanding verbalized. The following instructions and handouts were given: f/u with PCP within one week. Discontinued lines and drains: Peripheral IV intact. Patient discharged to Home or Self Care with Family Member via Wheelchair
== END 2020-02-16 13:15 | disposition home or self-care (01) | DRG 432 ==
LOC: ER 21:45 → 2 SOUTH 02-15 00:39
PROVIDERS: ADMIT Family Medicine; ATTEND Family Medicine
PROC: 0W9B3ZZ Drainage of Left Pleural Cavity, Percutaneous Approach (ICD-10-PCS; principal; 2020-02-15)
PROC: 0W9G3ZZ Drainage of Peritoneal Cavity, Percutaneous Approach (ICD-10-PCS; 2020-02-15)
DX: K74.60 Unspecified cirrhosis of liver (principal); E43 Unspecified severe protein-calorie malnutrition; J90 Pleural effusion, not elsewhere classified; N13.30 Unspecified hydronephrosis; R18.8 Other ascites; D63.8 Anemia in other chronic diseases classified elsewhere; E88.89 Other specified metabolic disorders; K21.9 Gastro-esophageal reflux disease without esophagitis; N18.9 Chronic kidney disease, unspecified; Z88.0 Allergy status to penicillin; Z87.440 Personal history of urinary (tract) infections; D47.3 Essential (hemorrhagic) thrombocythemia; D50.9 Iron deficiency anemia, unspecified; K80.20 Calculus of gallbladder without cholecystitis without obstruction; Z68.21 Body mass index [BMI] 21.0-21.9, adult
CPT/HCPCS: 32555; 36415; 49083; 70540; 71045; 74176; 80053; 81001; 82140; 83605; 83690; 85007; 85025; 85610; 85730; 87040; 87086; 96365; 96375; C1892; J0696; J3490; J7030; P9046; 99285-25; G0378

== ENCOUNTER 2020-02-23 10:15 | Outpatient (CLI) | payer MEDICARE ==
[2020-02-23] VITALS (7 sets, daily range): BP systolic 114–132; BP diastolic 61–78
[~2020-02-23] VITALS: Ht 160 cm; Wt 55.3 kg
[2020-02-23] MEDS ORDERED: LIDOCAINE WITH 8.4% SOD BICARB 3 ML DISP.SYRIN. ONE (10:44)
[2020-02-23] MEDS ORDERED: LIDOCAINE WITH 8.4% SOD BICARB 3 ML DISP.SYRIN. INJ ONE (10:45)
[2020-02-23] MEDS ORDERED: ALBUMIN HUMAN 25% 100 ML IV ONE ×2 (11:26→11:30)
--- NOTE | 2020-02-23 12:40 | NUR ---
Discharge Note: FLACO CAVANAUGH Discharge instructions and discharge home medications reviewed with Patient and spouse; and a copy given. All questions have been answered and understanding verbalized. The following instructions and handouts were given: Paracentesis Discontinued lines and drains: Right FA IV dc'd and tip intact. Patient discharged to home with via personal vehicle.
--- NOTE | 2020-02-24 09:09 | RAD ---
Ultrasound-guided paracentesis 02/24/2020 7:05 AM Procedure: The risks and benefits of the procedure were discussed the patient. Informed consent was obtained. A timeout procedure was performed. Sonographic evaluation of the abdomen was performed demonstrating ascites . The right lower quadrant was prepped and draped using maximum sterile barrier technique. 1% lidocaine without epinephrine was administered for local anesthesia. Real-time ultrasonographic guidance was used in passing a 5 Macedonian Yueh catheter into the fluid collection. 2.1 L of serous ascites was removed. The catheter was removed and pressure held to achieve hemostasis. A sterile dressing was applied. Impression: Successful ultrasound-guided paracentesis
== END 2020-02-23 12:40 | disposition home or self-care (01) ==
LOC: INTRAD 10:15
PROVIDERS: ATTEND Internal Medicine Gastroenterology
DX: R18.8 Other ascites (principal); K74.60 Unspecified cirrhosis of liver; N18.3 Chronic kidney disease, stage 3 (moderate); K21.9 Gastro-esophageal reflux disease without esophagitis; Z88.0 Allergy status to penicillin; Z79.899 Other long term (current) drug therapy
CPT/HCPCS: 49083; C1892; J3490; P9046

== ENCOUNTER 2020-03-02 09:18 | Outpatient (CLI) | payer MEDICARE ==
[~2020-03-02] VITALS: Ht 162.6 cm; Wt 56.2 kg
[2020-03-02] VITALS (7 sets, daily range): BP systolic 103–129; BP diastolic 53–75
[~2020-03-02 09:18] MED LIST changes: +LIDOCAINE WITH 8.4% SOD BICARB 3 ML DISP.SYRIN. ONE
[2020-03-02] MEDS ORDERED: LIDOCAINE WITH 8.4% SOD BICARB 3 ML DISP.SYRIN. IJ ONE (10:45)
[2020-03-02] MEDS ORDERED: ALBUMIN HUMAN 25% 100 ML IV ONE ×2 (10:50→11:00)
--- NOTE | 2020-03-02 11:32 | RAD ---
Ultrasound-guided paracentesis 03/02/2020 9:29 AM Procedure: The risks and benefits of the procedure were discussed the patient. Informed consent was obtained. A timeout procedure was performed. Sonographic evaluation of the abdomen was performed demonstrating ascites . The right lower quadrant was prepped and draped using maximum sterile barrier technique. 1% lidocaine without epinephrine was administered for local anesthesia. Real-time ultrasonographic guidance was used in passing a 5 Czech Yueh catheter into the fluid collection. 2.3 L of serous ascites was removed. The catheter was removed and pressure held to achieve hemostasis. A sterile dressing was applied. Impression: Successful ultrasound-guided paracentesis
== END 2020-03-02 12:05 | disposition home or self-care (01) ==
LOC: INTRAD 09:18
PROVIDERS: ATTEND Internal Medicine Gastroenterology
DX: R18.8 Other ascites (principal); N18.3 Chronic kidney disease, stage 3 (moderate); K21.9 Gastro-esophageal reflux disease without esophagitis; Z88.0 Allergy status to penicillin; Z79.899 Other long term (current) drug therapy
CPT/HCPCS: 49083; C1892; J3490; P9046

== ENCOUNTER → 2020-03-02 | Outpatient (CLI) | payer MEDICARE ==
[2020-03-02 11:45] VITALS: BP 111/69
--- NOTE | 2020-03-02 16:30 | RAD ---
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 COMPARISON: None available. TECHNIQUE: Noncontrast helical CT scanning of both orbits was performed. Multiplanar 2-D reconstructions were generated. PQRS compliance Statement One or more of the following individualized dose reduction techniques were utilized for this study: 1. Automated exposure control 2. Adjustment of the mA and/or kV according to patient size 3. Use of iterative reconstruction technique FINDINGS: There is loss of the fat planes between the optic nerve and extraocular muscles bilaterally due to soft tissue thickening worse on the right side. This may be seen with inflammation or lymphocytic infiltration or lymphoma. There is mild proptosis on the right in comparison to the left. There is a mucous retention cyst of the floor of the left maxillary sinus measuring 12 mm. There is a mucous retention cyst floor of the right maxillary sinus measuring 15 mm. No air-fluid levels or opacification of the paranasal sinuses is seen otherwise. There is a mottled appearance of the calvarium and mandible and cervical spine. This could be secondary to myeloproliferative disease or renal osteodystrophy. IMPRESSION: Soft tissue infiltrative process of the the orbits bilaterally involving the soft tissues posterior to the globe on both sides. There is more prominent on the right side with right-sided proptosis. This may be secondary to inflammation or could be secondary to lymphocytic infiltration/lymphoma. Diffuse mottled appearance of the calvarium and mandible and cervical spine. This may be seen with myeloproliferative disease or renal osteodystrophy. Electronically signed by: Andres Sanon MD (03/02/2020 4:27 PM) [id number]
== END | disposition home or self-care (01) ==
LOC: CT 12:19
PROVIDERS: ATTEND Ophthalmology
DX: H05.20 Unspecified exophthalmos (principal); D49.89 Neoplasm of unspecified behavior of other specified sites; J34.1 Cyst and mucocele of nose and nasal sinus
CPT/HCPCS: 70480

== ENCOUNTER 2020-03-09 08:57 | Outpatient (CLI) | payer MEDICARE ==
[~2020-03-09] VITALS: Ht 160 cm; Wt 55.8 kg
[~2020-03-09 08:57] MED LIST changes: -LIDOCAINE WITH 8.4% SOD BICARB 3 ML DISP.SYRIN. ONE
[2020-03-09] MEDS ORDERED: LIDOCAINE WITH 8.4% SOD BICARB 3 ML DISP.SYRIN. ONE (09:08)
[2020-03-09 09:15] VITALS: BP 111/61
[2020-03-09 09:32] VITALS: BP 134/62
[2020-03-09] MEDS ORDERED: ALBUMIN HUMAN 25% 100 ML IV ONE ×2 (09:41→10:00)
[2020-03-09 09:44] VITALS: BP 126/59
[2020-03-09] MEDS ORDERED: LIDOCAINE WITH 8.4% SOD BICARB 3 ML DISP.SYRIN. IJ ONE (09:45)
[2020-03-09] MEDS ORDERED: ALBUMIN HUMAN 25% 50 ML IV ONE (10:00)
[2020-03-09 10:19] VITALS: BP 122/62
[2020-03-09 10:31] VITALS: BP 113/61
--- NOTE | 2020-03-09 15:33 | RAD ---
Ultrasound-guided paracentesis 03/09/2020 1:29 PM Procedure: The risks and benefits of the procedure were discussed the patient. Informed consent was obtained. A timeout procedure was performed. Sonographic evaluation of the abdomen was performed demonstrating ascites . The right lower quadrant was prepped and draped using maximum sterile barrier technique. 1% lidocaine without epinephrine was administered for local anesthesia. Real-time ultrasonographic guidance was used in passing a 5 Tam[place]ight Yueh catheter into the fluid collection. 2.1 L of serous ascites was removed. The catheter was removed and pressure held to achieve hemostasis. A sterile dressing was applied. Impression: Successful ultrasound-guided paracentesis
== END 2020-03-09 11:00 | disposition home or self-care (01) ==
LOC: INTRAD 08:57
PROVIDERS: ATTEND Internal Medicine Gastroenterology
DX: R18.8 Other ascites (principal); K21.9 Gastro-esophageal reflux disease without esophagitis; I12.9 Hypertensive chronic kidney disease with stage 1 through stage 4 chronic kidney disease, or unspecified chronic kidney disease; N18.9 Chronic kidney disease, unspecified; Z88.0 Allergy status to penicillin; Z79.899 Other long term (current) drug therapy
CPT/HCPCS: 49083; C1892; J3490

== ENCOUNTER 2020-03-16 08:37 | Outpatient (CLI) | payer MEDICARE ==
[~2020-03-16] VITALS: Ht 160 cm; Wt 53.3 kg
[2020-03-16 09:02] VITALS: BP 109/61
[2020-03-16] MEDS ORDERED: LIDOCAINE WITH 8.4% SOD BICARB 3 ML DISP.SYRIN. ONE (09:13)
[2020-03-16 09:19] VITALS: BP 124/50
[2020-03-16] MEDS ORDERED: LIDOCAINE WITH 8.4% SOD BICARB 3 ML DISP.SYRIN. INJ ONE (09:30)
--- NOTE | 2020-03-16 09:38 | NUR ---
abd drainage was a dark orange color Addendum: 03/16/20 at 0939 by JACOB SOLO RN Amended: Links added.
[2020-03-16] MEDS ORDERED: ALBUMIN HUMAN 25% 100 ML IV ONE (10:28)
[2020-03-16] MEDS ORDERED: ALBUMIN HUMAN 25% 50 ML IV ONE (10:30)
--- NOTE | 2020-03-16 11:19 | NUR ---
Discharge Note: FLACO CAVANAUGH Discharge instructions and discharge home medications reviewed with Spouse and a copy given. All questions have been answered and understanding verbalized. Patient ate fruit cup and drank apple juice with no issues. The following instructions and handouts were given: Paracentesis. Discontinued lines and drains: Right hand PIV, dressing clean dry intact. Patient discharged to home with via wheelchair to private vehicle.
--- NOTE | 2020-03-16 17:03 | RAD ---
Procedure: Ultrasound guided paracentesis Clinical Indication: Adult female with abdominal ascites Sedation: Local anesthesia only Antibiotics: None Fluoro Time: None Contrast: Not applicable Sterility: The procedure was performed in its entirety using appropriate elements of sterile technique. Consent: The procedure was explained in its entirety to the patient or the patients designated business banking representative by a member of the treatment team, including a discussion of the risks, benefits and commonly accepted alternatives to the procedure, as well as the expected consequences of no therapy whatsoever. Discussion of the risks included, but was not limited to, those that are most frequent and those that are rare but possibly severe or life-threatening, as well as the possibility of unforeseen complications. Technique and Findings: Following informed consent, the patient was prepped and draped in the usual sterile fashion. Ultrasound interrogation of the abdomen revealed abdominal ascites. A hard copy ultrasound image was recorded. 1% Lidocaine was used to achieve local anesthesia over the area of interest, and a 6 Macedonian Vhoj-I-Qzhghcid catheter was advanced into the peritoneal cavity under ultrasound guidance. 2200 cc of thin yellow ascites was then withdrawn. The catheter was removed and hemostasis was achieved with manual compression. Complications: No immediate Impression: 1. Ultrasound-guided paracentesis as described
== END 2020-03-16 11:10 | disposition home or self-care (01) ==
LOC: INTRAD 08:37
PROVIDERS: ATTEND Internal Medicine Gastroenterology
DX: R18.8 Other ascites (principal); I12.9 Hypertensive chronic kidney disease with stage 1 through stage 4 chronic kidney disease, or unspecified chronic kidney disease; N18.9 Chronic kidney disease, unspecified; K21.9 Gastro-esophageal reflux disease without esophagitis; Z88.0 Allergy status to penicillin; Z79.899 Other long term (current) drug therapy
CPT/HCPCS: 49083; C1892; J3490; P9046

== ENCOUNTER 2020-03-22 09:54 | Outpatient (CLI) | payer MEDICARE ==
[2020-03-22] VITALS (32 sets, daily range): BP systolic 91–122; BP diastolic 49–74
[~2020-03-22] VITALS: Ht 161.3 cm; Wt 52.6 kg
[2020-03-22 10:38] LABS: BASO # 0.1 x10^3/uL (0.0-0.2); BASO % 1 % (0-3); EOS # 0.1 x10^3/uL (0.0-0.7); EOS % 1 % (0-3); LYMPH # 0.6 x10^3/uL (1.0-4.8); LYMPH % 8 % (24-48); MEAN CORPUSCULAR HEMOGLOBIN 32 pg (25-35); MEAN CORPUSCULAR HGB CONC 34 g/dL (31-37); MEAN CORPUSCULAR VOLUME 94 fL (79-100); MONO # 0.5 x10^3/uL (0.0-1.1); MONO % 7 % (0-9); NEUT # 6.6 x10^3/uL (1.8-7.7); NEUT % 84 % (31-73); PLATELET COUNT 481 x10^3/uL (140-400); RED BLOOD COUNT 2.19 x10^6/uL (3.50-5.40); RED CELL DISTRIBUTION WIDTH 20.5 % (11.5-14.5); WHITE BLOOD COUNT 7.9 x10^3/uL (4.0-11.0)
[2020-03-22 10:41] LABS: HEMATOCRIT 20.5 % (36.0-47.0)
[2020-03-22 10:48] LABS: PROTHROMBIN TIME PATIENT 15.2 SEC (11.7-14.0)
[2020-03-22] MEDS ORDERED: LIDOCAINE WITH 8.4% SOD BICARB 3 ML DISP.SYRIN. ONE (11:43)
[2020-03-22] MEDS ORDERED: LIDOCAINE WITH 8.4% SOD BICARB 3 ML DISP.SYRIN. INJ ONE (12:00)
--- NOTE | 2020-03-22 12:31 | RAD ---
Ultrasound-guided paracentesis 03/22/2020 10:22 AM Procedure: The risks and benefits of the procedure were discussed the patient. Informed consent was obtained. A timeout procedure was performed. Sonographic evaluation of the abdomen was performed demonstrating ascites . The right lower quadrant was prepped and draped using maximum sterile barrier technique. 1% lidocaine without epinephrine was administered for local anesthesia. Real-time ultrasonographic guidance was used in passing a 5 Guinean Yueh catheter into the fluid collection. 2.4 L of serous ascites was removed. The catheter was removed and pressure held to achieve hemostasis. A sterile dressing was applied. Impression: Successful ultrasound-guided paracentesis
[2020-03-22 13:42] LABS: PLT ESTIMATE INCREASED (ADEQUATE)
[2020-03-22 13:43] LABS: ANISOCYTOSIS MOD; POIKILOCYTOSIS SLIGHT; POLYCHROMASIA SLIGHT; SCHISTOCYTES FEW
[2020-03-22 13:55] LABS: HELMET CELLS PRESENT; TEAR DROP CELLS OCC
--- NOTE | 2020-03-22 20:40 | NUR ---
Discharge Note: FLACO CAVANAUGH Discharge instructions and discharge home medications reviewed with Spouse and a copy given. All questions have been answered and understanding verbalized. The following instructions and handouts were given: Paracentesis and blood transfusion. Discontinued lines and drains: right forearm PIV dressing clean dry intact. Patient discharged to home with via wheelchair to private vehicle. Patient came in outpatient for paracentesis. Hgb low Dr. Marr performed paracentesis with no issues and ordered patient to have 2 units of PRBCs to infused for discharge. Patient tolerated transfusion of 2 units of PRBCs with no issues, vitals stable and documented under transfusion. Patient are lunch and dinner with no issues.
== END 2020-03-22 20:55 | disposition home or self-care (01) ==
LOC: INTRAD 09:54
PROVIDERS: ATTEND Internal Medicine Gastroenterology
DX: R18.8 Other ascites (principal); I12.9 Hypertensive chronic kidney disease with stage 1 through stage 4 chronic kidney disease, or unspecified chronic kidney disease; N18.9 Chronic kidney disease, unspecified; Z88.0 Allergy status to penicillin; Z79.899 Other long term (current) drug therapy; Z98.890 Other specified postprocedural states
CPT/HCPCS: 36415; 49083; 85025; 85610; 85730; 86850; 86900; 86901; 86920; C1892; J3490; P9016

== ENCOUNTER → 2020-03-28 | Outpatient (CLI) | payer MEDICARE ==
[~2020-03-28] VITALS: Ht 160 cm; Wt 52.6 kg
[~2020-03-28] MED LIST changes: +LIDOCAINE WITH 8.4% SOD BICARB 3 ML DISP.SYRIN. ONE; +PROCHLORPERAZINE 10 MG/2 ML VIAL. IV ONE
[2020-03-28 10:30] VITALS: BP 146/79
[2020-03-28 10:36] LABS: BASO % 0 % (0-3); EOS % 0 % (0-3); HEMATOCRIT 35.2 % (36.0-47.0); HEMOGLOBIN 11.9 g/dL (12.0-15.5); LYMPH # 0.5 x10^3/uL (1.0-4.8); LYMPH % 5 % (24-48); MEAN CORPUSCULAR HEMOGLOBIN 31 pg (25-35); MEAN CORPUSCULAR HGB CONC 34 g/dL (31-37); MEAN CORPUSCULAR VOLUME 91 fL (79-100); MONO # 0.4 x10^3/uL (0.0-1.1); MONO % 4 % (0-9); NEUT % 91 % (31-73); PLATELET COUNT 409 x10^3/uL (140-400); RED BLOOD COUNT 3.88 x10^6/uL (3.50-5.40); RED CELL DISTRIBUTION WIDTH 18.7 % (11.5-14.5)
[2020-03-28 10:44] LABS: CALCIUM 9.3 mg/dL (8.5-10.1); CREATININE 2.7 mg/dL (0.6-1.0); GFR 17.7; POTASSIUM 5.2 mmol/L (3.5-5.1)
[2020-03-28 10:59] LABS: PROTHROMBIN TIME PATIENT 14.3 SEC (11.7-14.0)
--- NOTE | 2020-03-28 11:00 | NUR ---
Maricruz ALEMAN - called and spoke to Dr Marr re: pt lab results, Dr Marr requested we call her Primary MD for admission. Dr Pickens was called at her office and given report on pt condition and lab results- Dr Pickens requested pt be sent to ED for admission. BERNADETTE ALEMAN
[2020-03-28 11:18] LABS: % LYMPHS 4 % (24-48); % MONOS 2 % (0-10); % SEGS 94 % (35-66); ANISOCYTOSIS SLIGHT; PLT ESTIMATE ADEQUATE (ADEQUATE)
== END | disposition home or self-care (01) ==
LOC: INTRAD 10:03
PROVIDERS: ATTEND Internal Medicine Gastroenterology
DX: R18.8 Other ascites (principal); K21.9 Gastro-esophageal reflux disease without esophagitis; I12.9 Hypertensive chronic kidney disease with stage 1 through stage 4 chronic kidney disease, or unspecified chronic kidney disease; N18.9 Chronic kidney disease, unspecified; Z88.0 Allergy status to penicillin; Z79.899 Other long term (current) drug therapy
CPT/HCPCS: 36415; 80048; 85007; 85025; 85610; J0780